=== PATIENT | male | born 1945 | race Caucasian/White ===

== ENCOUNTER 2017-08-16 22:21 | Inpatient (IN) | payer MEDICARE, MEDICAID ==
[2017-08-16 22:51] LABS: #Eosinphils 0.2 thou/uL (0.0-0.7); #Lymphocytes 2.3 thou/uL (1.20-3.40); #Monocytes 0.8 thou/uL (0.11-0.59); #Neutrophils 7.6 thou/uL (1.40-6.50); %Basophils 0.1 % (0.0-1.0); %Eosinophils 1.8 % (0.0-10.0); %Lymphocytes 21.2 % (21.0-51.0); %Monocytes 7.5 % (0.0-10.0); %Neutrophils 69.4 % (42.0-75.0); Hemoglobin 13.7 g/dL (14.0-18.0); Mean Corpuscular HGB CONC 33.3 g/dL (32.0-36.0); Mean Corpuscular Hemoglobin 32.6 pg (27.0-31.0); Mean Corpuscular Volume 97.9 fl (80.0-94.0); Mean Platelet Volume 7.9 fL (7.4-10.4); Platelet Count 263 thou/uL (130-400); RBC Distribution Width 12.7 % (11.5-14.5); Red Blood Cell (RBC) Count 4.22 mill/uL (4.70-6.10)
--- NOTE | 2017-08-16 22:56 | RAD ---
CHEST ONE VIEW: 08/16/17 HISTORY: Pain. Shortness of breath. COMPARISON: 09/05/12. FINDINGS: Portable upright chest: There is sternotomy wires. Atherosclerosis or the aorta. Increased interstitial opacities throughout the lung parenchyma may represent fibrotic change. Superimposed infiltrate cannot be excluded. Lungs are hyperinflated. No pneumothorax or osseous abnormalities. IMPRESSION: 1. Hyperinflation. 2. Fibrosis. 3. Superimposed infiltrate is suspected. Continued surveillance is recommended. POS: BEBETO
[2017-08-16 23:10] LABS: ALT (SGPT) 18 U/L (8-55); AST (SGOT) 27 U/L (5-34); Albumin 3.6 g/dL (3.4-4.8); Alkaline Phosphatase 76 U/L (40-150); Anion Gap 13 mmol/L (10-20); BUN (Urea Nitrogen) 25 mg/dL (8.4-25.7); Bilirubin, Total 0.5 mg/dL (0.2-1.2); Calc. Creatinine Clearance 0 mL/min (70-130); Calcium 8.8 mg/dL (7.8-10.44); Carbon Dioxide 21 mmol/L (23-31); Chloride 108 mmol/L (98-107); Estimated GFR-MDRD 60; Globulin 3.6 g/dL (2.4-3.5); Glucose 105 mg/dL (80-115); Potassium 4.2 mmol/L (3.5-5.1); Protein, Total 7.2 g/dL (5.8-8.1); Sodium 138 mmol/L (136-145)
[2017-08-16 23:15] LABS: CKMB 2.4 ng/mL (0-6.6); Troponin I 0.028 ng/mL (< 0.028)
[2017-08-16] MEDS ORDERED: methylPREDNISolone Sod Succ/PF 125 MG/2 ML VIAL ONE (23:30)
[2017-08-16] MEDS ORDERED: Azithromycin 500 MG in Sodium Chloride 0.9% 250 ML 250 ML IVPB SCH (23:45)
[2017-08-16] MEDS ORDERED: cefTRIAXone\\ROCEPHIN 2 GM in Sodium Chloride 0.9% 100 ML IVPB SCH (23:45)
[2017-08-17] MEDS ORDERED: Albuterol Sulfate 2.5 mg/3 ml Neb NEB PRN (01:45)
[2017-08-17] MEDS ORDERED: Acetaminophen 325 MG TAB PO PRN ×2 (01:48→08:21)
[2017-08-17] MEDS ORDERED: Ondansetron HCl/PF 4 MG/2 ML Vial IVP PRN ×3 (01:48→08:21)
[2017-08-17] MEDS ORDERED: Ondansetron ODT 4 MG TAB SL PRN (01:48)
[2017-08-17] MEDS ORDERED: Ipratropium Bromide 2.5 ml Neb NEB PRN (01:48)
[2017-08-17 02:03] VITALS: BMI 20.7
[2017-08-17 05:44] LABS: Troponin I 0.028 ng/mL (< 0.028)
[2017-08-17] MEDS ORDERED: Calcium Carbonate 500 MG ChewTAB PO PRN (08:21)
[2017-08-17] MEDS ORDERED: hydrALAZINE 20 MG/ML VIAL SLOW IVP PRN (08:21)
[2017-08-17] MEDS ORDERED: Loratadine 10 MG TAB PO PRN (08:21)
[2017-08-17] MEDS ORDERED: Mag-Al 1200 mg/1200 mg/30 ML UDCUP PO PRN (08:21)
[2017-08-17] MEDS ORDERED: Nitroglycerin 0.4 MG TAB (25 Tab Bottle) SL PRN (08:21)
[2017-08-17] MEDS ORDERED: Senokot 8.6 MG TAB PO PRN (08:21)
[2017-08-17] MEDS ORDERED: Diabetic Tussin 200 MG/10 ML UDCUP PO PRN (08:21)
[2017-08-17] MEDS ORDERED: Benzonatate 100 MG CAP PO PRN (08:21)
[2017-08-17] MEDS ORDERED: Bisacodyl 5 MG TAB PO PRN (08:21)
[2017-08-17] MEDS ORDERED: traMADol HCl 50 MG TAB PO PRN (08:21)
[2017-08-17] MEDS ORDERED: cloNIDine 0.1 MG TAB PO PRN (08:21)
[2017-08-17] MEDS: Aspirin 325 mg Enteric Coated Tablet PO SCH (09:31)
[2017-08-17] MEDS: Lisinopril 5 MG TAB PO SCH ×2 (09:31→20:33)
[2017-08-17] MEDS: Famotidine 20 MG TAB PO SCH ×2 (09:31→20:33)
[2017-08-17] MEDS: Enoxaparin Sodium 40 MG/0.4 ML SYRINGE SC SCH (09:31)
--- NOTE | 2017-08-17 12:04 | HP ---
PRIMARY CARE PHYSICIAN: None, he is a city call. CHIEF COMPLAINT: Worsening shortness of breath. HISTORY OF PRESENTING ILLNESS: Mr. Muse is a 72-year-old male with past medical history of coronary artery disease status post CABG x3 vessels 4 years ago in [facility] as well as history of longsta nding tobacco and alcohol abuse who presented to the emergency room with complaints of shortness of b reath. History is mainly obtained by the patient himself and electronic medical records have been re viewed. According to Mr. Muse, he has been feeling poorly for about a month. He started to feel weak and ti red and now for the last 2 days, he is getting progressively more and more short of breath. He is al so complaining of some cough with production of whitish greenish sputum. It is associated with chest tightness, wheezing, and general feeling of malaise. He denies any fever or chills. He denies any sick contacts. He continues to smoke, but he reports that he has cut down and 1 pack lasts him almos t a week. He also reports that he has cut down on his alcohol intake from 6 pack of beer per day to 1-2 every day for the last month or so. He had his CABG done 4 years ago, but was incarcerated after that. He did take the medications while incarcerated, but once he was out of the residential, he stopped taking everything and threw everything in trash. Upon presentation to the emergency room, he was quite hypoxic with his oxygen saturation 87% on room air and hypertensive with blood pressure of 181/115. He was found to be actively wheezing. His 12-l ead EKG showed some ST and T-wave changes which were considered nonspecific. Chest x-ray showed hype rinflation fibrosis and possible infiltrate throughout the lungs bilaterally. Because of these findi ngs and his physical examination, presumptive diagnosis was chronic obstructive pulmonary disease exa cerbation. Pneumonia was also in the differential. He received nebulizers, Solu-Medrol, IV antibiot ics, namely Rocephin and azithromycin and is now being admitted for further evaluation and care. At the time of my examination, he is already up in the room and is feeling much better. PAST MEDICAL HISTORY: 1. Coronary artery disease. 2. Tobacco abuse. 3. Alcohol abuse. 4. Undiagnosed chronic obstructive pulmonary disease. PAST MEDICAL HISTORY: Coronary artery bypass graft x3 vessels 4 years ago. PSYCHIATRIC HISTORY: No anxiety, no depression. SOCIAL HISTORY: He smokes cigarettes on a daily basis and has smoked for multiple years, more than a pack per day. He drinks alcohol on a regular basis, up until 1 month ago of 6 pack beer per day. Kristie sanders also chews tobacco. [place] and is otherwise independent with his ADLs and IADL s. FAMILY HISTORY: He does not remember much of his family history, but thinks that his mother possibly has had heart disease. He is unable to recall any other family members and their illnesses. ALLERGIES: PENICILLIN. CURRENT MEDICATIONS: None reviewed with the patient. REVIEW OF SYSTEMS: The following complete review of systems was negative, unless otherwise mentioned in the HPI or below: Constitutional: Weight loss or gain, ability to conduct usual activities. Skin: Rash, itching. Eyes: Double vision, pain. ENT/Mouth: Nose bleeding, neck stiffness, pain, tenderness. Cardiovascular: Palpitations, dyspnea on exertion, orthopnea. Respiratory: Shortness of breath, wheezing, cough, hemoptysis, fever or night sweats. Gastrointestinal: Poor appetite, abdominal pain, heartburn, nausea, vomiting, constipation, or diarr hea. Genitourinary: Urgency, frequency, dysuria, nocturia. Musculoskeletal: Pain, swelling. Neurologic/Psychiatric: Anxiety, depression. Allergy/Immunologic: Skin rash, bleeding tendency. It is negative except for those mentioned in the history and physical. LABORATORY DATA AND IMAGING DATA: CBC shows WBCs at 11 without any left shift, hemoglobin 13.7, and platelet count of 263. Serum chemistries; chloride 108, bicarbonate 21. Initial troponin and CK-MB normal. Repeat troponin 0.040, which trended back down to normal at 0.028. His BNP was checked by m yself a little while ago and came back elevated more than 3000. Chest x-ray done in the emergency ro om is reviewed by myself and the interstitial opacities most likely represent edema than infiltrate. Twelve lead EKG per my review shows frequent PACs with left atrial enlargement, sinus rhythm at 86 b eats per minute and ST and T-wave flattening in anterolateral inferior leads. PHYSICAL EXAMINATION: VITAL SIGNS: Upon presentation, blood pressure 181/115, pulse of 99, respirations 16, saturating 87% on room air, afebrile. Most recent vital signs include blood pressure 137/74 and saturations 96% on 2 liters nasal cannula. GENERAL: He appears more than his stated age, but is in no acute distress and is awake, alert, orien madhu x3. HEENT: Mucous membranes are slightly dry. No oropharyngeal exudate or erythema. Head is normocepha lic and atraumatic. Pupils are equal and reactive to light and accommodation. Extraocular movement intact. NECK: Supple without any lymphadenopathy, JVD or bruit. CHEST: Clear to auscultation without any wheezing, rales or rhonchi. Rhythm is regular without any murmur, rubs, or gallops. Few ectopic beats are auscultated. ABDOMEN: Soft, nontender, nondistended, positive bowel sounds. No guarding, rebound or rigidity. EXTREMITIES: Free of any cyanosis, clubbing, or edema. NEUROLOGIC: Examination is nonfocal. SKIN: Free of any rashes or bruises. I feel warm and dry to touch. PSYCHIATRIC: Normal affect. IMPRESSION AND PLAN: 1. Acute hypoxic respiratory failure. This seems to be multifactorial. At this time, most likely h e is having acute chronic obstructive pulmonary disease exacerbation along with acute congestive hear t failure and fluid overload. Also at this time, cardiac causes cannot be ruled out as the patient h as significant history of coronary artery disease and has been noncompliant with his medications. To optimize his care, we will start him on intravenous steroids as well as IV antibiotics as pneumonia cannot be ruled out. Also, start him on Dulera as well as Spiriva and continue oxygen as necessary. Also, give him a dose of Lasix and start him on a daily diuresis with strict I's and O's. We will o btain a transthoracic echocardiogram to assess his cardiac function. The likelihood of ACS is very l ow at this time. He will be restarted on aspirin and we will add lisinopril. We will avoid beta blo cker at this time because of acute chronic obstructive pulmonary disease exacerbation, but he will ne ed to be on a beta nick prior to his discharge. We will also check a lipid panel and restart him on lipid lowering agent given his history of coronary artery disease. He has no clinical signs and s ymptoms to suggest deep venous thrombosis or pulmonary embolism. Further management will depend upon his clinical course and the results of his echocardiogram. We may need to involve Cardiology if he shows significant cardiomyopathy or any valvular abnormalities. 2. Hypertensive urgency. His blood pressure is under much better control. We will start him on a d aily dose of lisinopril and add beta nick once his acute chronic obstructive pulmonary disease exa cerbation episode is over. Add p.r.n. antihypertensives as well. 3. History of coronary artery disease, status post coronary artery bypass graft. He will need to be started back on aspirin, statin, beta nick, and EMERITA inhibitor at the very least. Once again, we will start everything except for the beta nick for now. The patient will need prescription for al l of his medications prior to discharge as well as set up with primary care physician. I have discus sed the medication compliance with him in detail and at this time he is receptive to the feedback. 4. Tobacco abuse. The patient is receptive to continue to cut back. We will start him on a nicotin e patch. 5. Alcohol abuse. The patient has started to cut back and has been counseled against alcohol abuse. We will start him on vitamin supplements including thiamine and folic acid. 6. Code status: FULL CODE. Discussed with the patient. 7. Deep venous thrombosis and gastrointestinal prophylaxis. DISPOSITION: Mr. Muse is currently being admitted to the hospital for acute hypoxic respiratory catherine lure which seems to be multifactorial including pneumonia, acute COPD exacerbation as well as acute C HF, unspecified because of the lack of any recent echocardiogram in the EMR. Estimated length of sta y is at least 2-3 midnights. Further management will depend upon his clinical course.
[2017-08-17] MEDS: Furosemide 40 MG/4 ML VIAL SLOW IVP SCH (13:00)
[2017-08-17] MEDS: Mometasone/Formoterol 120 PUFF INHALER INH SCH (19:10)
[2017-08-17] MEDS: Atorvastatin Calcium 20 MG TAB PO SCH (20:33)
[2017-08-18 05:09] LABS: #Lymphocytes 0.9 thou/uL (1.20-3.40); #Monocytes 0.5 thou/uL (0.11-0.59); #Neutrophils 12.5 thou/uL (1.40-6.50); %Basophils 0.2 % (0.0-1.0); %Eosinophils 0.1 % (0.0-10.0); %Lymphocytes 6.7 % (21.0-51.0); %Monocytes 3.4 % (0.0-10.0); %Neutrophils 89.6 % (42.0-75.0); Hemoglobin 12.1 g/dL (14.0-18.0); Mean Corpuscular HGB CONC 33.5 g/dL (32.0-36.0); Mean Corpuscular Hemoglobin 33.1 pg (27.0-31.0); Mean Corpuscular Volume 98.9 fl (80.0-94.0); Mean Platelet Volume 8.2 fL (7.4-10.4); Platelet Count 246 thou/uL (130-400); RBC Distribution Width 12.5 % (11.5-14.5); Red Blood Cell (RBC) Count 3.65 mill/uL (4.70-6.10)
[2017-08-18 05:37] LABS: Anion Gap 11 mmol/L (10-20); BUN (Urea Nitrogen) 23 mg/dL (8.4-25.7); Calc. Creatinine Clearance 54 mL/min (70-130); Calcium 8.5 mg/dL (7.8-10.44); Carbon Dioxide 23 mmol/L (23-31); Chloride 106 mmol/L (98-107); Estimated GFR-MDRD 75; Glucose 113 mg/dL (80-115); Potassium 3.7 mmol/L (3.5-5.1); Sodium 136 mmol/L (136-145)
[2017-08-18] MEDS: Furosemide 40 MG/4 ML VIAL SLOW IVP SCH ×2 (05:51→15:32)
[2017-08-18] MEDS ORDERED: Spiriva 18 MCG CAP (Box of 5 Caps) INH SCH (07:00)
[2017-08-18] MEDS: Mometasone/Formoterol 120 PUFF INHALER INH SCH ×2 (09:25→18:33)
[2017-08-18] MEDS: Enoxaparin Sodium 40 MG/0.4 ML SYRINGE SC SCH (09:27)
[2017-08-18] MEDS: Folic Acid 1 MG TAB PO SCH (09:28)
[2017-08-18] MEDS: Famotidine 20 MG TAB PO SCH ×2 (09:28→21:10)
[2017-08-18] MEDS: Lisinopril 5 MG TAB PO SCH ×2 (09:28→21:11)
[2017-08-18] MEDS: Aspirin 325 mg Enteric Coated Tablet PO SCH (09:28)
[2017-08-18] MEDS ORDERED: Spironolactone 25 MG TAB PO SCH (10:15)
--- NOTE | 2017-08-18 10:55 | PDOC.PN ---
- Subjective Encounter Start Date: 08/18/17 Encounter Start Time: 07:30 -: old records requested/rev Patient seen and examined. No new complaints. No overnight events - Objective MAR Reviewed: Yes Vital Signs & Weight: Vital Signs (12 hours) Temp Pulse Resp BP BP Pulse Ox 08/18/17 09:29 98 08/18/17 09:28 83 12 138/80 08/18/17 09:25 86 16 08/18/17 07:15 97.1 F L 83 16 138/80 96 08/18/17 04:00 98.4 F 81 20 123/61 94 L 08/17/17 23:37 96 Weight Weight 117 lb 12.8 oz I&O: 08/17/17 08/18/17 08/19/17 06:59 06:59 06:59 Intake Total 720 Balance 720 Result Diagrams: 08/18/17 03:46 08/18/17 03:46 Radiology Reviewed by me: Yes (echo) EKG Reviewed by me: Yes (nsr) Phys Exam - Physical Examination Constitutional: NAD HEENT: PERRLA, moist MMs, sclera anicteric Neck: no JVD, supple Respiratory: no wheezing, no rhonchi few basal rales Cardiovascular: RRR, no rub SM+ Gastrointestinal: soft, non-tender, no distention, positive bowel sounds Musculoskeletal: no edema, pulses present Neurological: non-focal, normal sensation, moves all 4 limbs Lymphatic: no nodes Psychiatric: normal affect, A&O x 3 Skin: no rash, normal turgor Dx/Plan (1) Acute respiratory failure with hypoxia Code(s): J96.01 - ACUTE RESPIRATORY FAILURE WITH HYPOXIA Status: Acute (2) Acute systolic ACC/AHA stage C congestive heart failure Code(s): I50.21 - ACUTE SYSTOLIC (CONGESTIVE) HEART FAILURE Status: Acute (3) Demand ischemia Code(s): I24.8 - OTHER FORMS OF ACUTE ISCHEMIC HEART DISEASE Status: Acute (4) Moderate mitral regurgitation Code(s): I34.0 - NONRHEUMATIC MITRAL (VALVE) INSUFFICIENCY Status: Acute (5) Moderate tricuspid regurgitation Code(s): I07.1 - RHEUMATIC TRICUSPID INSUFFICIENCY Status: Acute (6) Alcohol abuse Code(s): F10.10 - ALCOHOL ABUSE, UNCOMPLICATED Status: Chronic (7) CAD (coronary artery disease) Code(s): I25.10 - ATHSCL HEART DISEASE OF [place] CORONARY ARTERY W/O ANG PCTRS Status: Chronic (8) Tobacco abuse Code(s): Z72.0 - TOBACCO USE Status: Chronic - Plan cont current plan of care * counselled to avoid smoking and alcohol abuse * cardiology will be consulted for life vest and AICD evaluation * medication reviewed as below * symptomatic treatment * add aldactone * repeat labs tomorrow * continue levaquin * reduce solumedrol Review of Systems - Review of Systems Constitutional: negative: fever, chills, sweats, weakness, malaise, other Eyes: negative: Pain, Vision Change, Conjunctivae Inflammation, Eyelid Inflammation, Redness, Other ENT: negative: Ear Pain, Ear Discharge, Nose Pain, Nose Discharge, Nose Congestion, Mouth Pain, Mouth Swelling, Throat Pain, Throat Swelling, Other Respiratory: SOB with Excertion. negative: Cough, Dry, Shortness of Breath, Hemoptysis, Pleuritic Pain, Sputum, Wheezing Cardiovascular: orthopnea. negative: chest pain, palpitations, paroxysmal nocturnal dyspnea, edema, light headedness, other Gastrointestinal: negative: Nausea, Vomiting, Abdominal Pain, Diarrhea, Constipation, Melena, Hematochezia, Other Genitourinary: negative: Dysuria, Frequency, Incontinence, Hematuria, Retention , Other Musculoskeletal: negative: Neck Pain, Shoulder Pain, Arm Pain, Back Pain, Hand Pain, Leg Pain, Foot Pain, Other Skin: negative: Rash, Lesions, [place], Bruising, Other Neurological: negative: Weakness, Numbness, Incoordination, Change in Speech, Confusion, Seizures, Other - Medications/Allergies Allergies/Adverse Reactions: Allergies Allergy/AdvReac Type Severity Reaction Status Date / Time Penicillins Allergy Unverified 08/16/17 23:50 Medications: Current Medications Acetaminophen (Tylenol) 650 mg PO Q4H PRN PRN Reason: Headache/Fever or Pain Al Hydroxide/Mg Hydroxide (Maalox) 30 ml PO Q6H PRN PRN Reason: Heartburn or Indigestion Albuterol/Ipratropium (Duoneb) 3 ml NEB [id number] PRN PRN Reason: SOB &/or Wheezing Albuterol/Ipratropium (Duoneb) 3 ml NEB [id number] ECTOR Last Admin: 04/28/18 09:28 Dose: 3 ml Aspirin (Ecotrin) 325 mg PO DAILY [facility] Last Admin: 08/18/17 09:28 Dose: 325 mg Atorvastatin Calcium (Lipitor) 20 mg PO HS [facility] Last Admin: 08/17/17 20:33 Dose: 20 mg Benzonatate (Tessalon) 100 mg PO Q4H PRN PRN Reason: Cough Last Admin: 08/17/17 09:31 Dose: 100 mg Bisacodyl (Dulcolax) 10 mg PO DAILYPRN PRN PRN Reason: Constipation Calcium Carbonate (Tums) 1,000 mg PO Q4H PRN PRN Reason: Heartburn or Indigestion Clonidine (Catapres) 0.1 mg PO Q4H PRN PRN Reason: Systolic BP > 160 Enoxaparin Sodium (Lovenox) 40 mg SC 0900 [facility] Last Admin: 08/18/17 09:27 Dose: 40 mg Famotidine (Pepcid) 20 mg PO BID [facility] Last Admin: 08/18/17 09:28 Dose: 20 mg Folic Acid (Folvite) 1 mg PO DAILY [facility] Last Admin: 08/18/17 09:28 Dose: 1 mg Furosemide (Lasix) 40 mg SLOW IVP 0600,1400 [facility] Last Admin: 08/18/17 05:51 Dose: 40 mg Guaifenesin (Robitussin Sf) 200 mg PO Q4H PRN PRN Reason: Cough Hydralazine HCl (Apresoline) 10 mg SLOW IVP Q4H PRN PRN Reason: Systolic BP > 170 Levofloxacin 500 mg/ Device 100 mls @ 100 mls/hr IVPB Q24HR [facility] Last Admin: 08/18/17 09:28 Dose: 100 mls Lisinopril (Zestril) 5 mg PO BID [facility] Last Admin: 08/18/17 09:28 Dose: 5 mg Loratadine (Claritin) 10 mg PO DAILYPRN PRN PRN Reason: Sinus Symptoms Methylprednisolone Sodium Succinate (Solu-Medrol) 40 mg IVP Q6HR [facility] Last Admin: 08/18/17 05:51 Dose: 40 mg Mometasone Furoate/Formoterol Fumar (Dulera 200 Mcg/5 Mcg Inhaler) 2 puff INH BID-RT [facility] Last Admin: 08/18/17 09:25 Dose: 2 puff Nitroglycerin (Nitrostat) 0.4 mg SL Q5MIN PRN PRN Reason: Chest Pain Ondansetron HCl (Zofran) 4 mg IVP Q6H PRN PRN Reason: Nausea/Vomiting Ondansetron HCl (Zofran) 4 mg IVP Q6H PRN PRN Reason: Nausea/Vomiting Senna (Senokot) 2 tab PO HSPRN PRN PRN Reason: Constipation Spironolactone (Aldactone) 25 mg PO NOW [facility] Stop: 08/18/17 12:15 Spironolactone (Aldactone) 25 mg PO [facility] Thiamine HCl (Thiamine) 100 mg PO DAILY [facility] Last Admin: 08/18/17 09:40 Dose: 100 mg Tramadol HCl (Ultram) 50 mg PO Q4H PRN PRN Reason: Moderate Pain (4-6)
[2017-08-18 13:35] LABS: Bilirubin Negative (Negative); Blood, Urine Negative (Negative); Clarity CLEAR (Clear); Glucose, Urine (Dipstick) Negative (Negative); Leukocyte Negative (Negative); Nitrite Negative (Negative); Protein, Urine (Dipstick) Negative (Neg-Trace); Specific Gravity, Urine 1.015 (1.002-1.036); Urobilinogen 0.2 mg/dL (0.2-1.0); pH, Urine 5.5 (5.0-9.0)
[2017-08-18 13:37] LABS: Bacteria/HPF None Seen HPF (None Seen); Hyaline Casts/LPF 0-3 HYALINE CAST LPF (0-3 Hyaline); RBC/HPF 0-3 HPF (0-3); Squamous Epithelial None Seen HPF (0-3); WBC/HPF None Seen HPF (0-3)
[2017-08-18] MEDS ORDERED: Carvedilol 3.125 MG TAB PO SCH (17:30)
[2017-08-18] MEDS: Atorvastatin Calcium 20 MG TAB PO SCH (21:10)
--- NOTE | 2017-08-19 00:09 | CON ---
DATE OF CONSULTATION: 08/18/2017 HISTORY OF PRESENT ILLNESS: Mr. Muse is a 72-year-old, white male with previous history of CABG x3 in [place] approximately 4 years ago. He states that when he left the hospital, he threw all his medi cines away and has not taken any medicines, not even aspirin since that time. He has gone back to sm oking 1-2 packs per day as well as drinking a six-pack of beer per day. Over the last month, he has been having problems with increased cough and shortness of breath. Over the last 2-3 days, he has lassiter d problems and has cut down from his usual 1-2 packs a day to where one pack would last him for a wee k. He also has cut back on his drinking. His breathing got so bad that he came to the emergency [facility] on the evening of 08/16/2017. Blood pressure on presentation was 181/115. He was significantly wh eezing. He was brought in by EMS. EMS gave nitroglycerin, morphine, oxygen, DuoNeb, and aspirin. I nitially, he was hypoxic in the mid 80s. He denied any chest discomfort. In the emergency room, he was given DuoNeb, Solu-Medrol 125 mg IV, ceftriaxone 2 grams IV, another DuoNeb, and azithromycin 500 mg IV. Echocardiogram showed severe left ventricular dysfunction, and Cardiology consultation was r equested. PAST MEDICAL HISTORY: Coronary artery disease. He denies any history of hypertension, diabetes, or hypercholesterolemia. He was never told that he had a weak heart at the time of his bypass surgery. MEDICATIONS: None. ALLERGIES: PENICILLIN. OPERATIONS: CABG x3 in [place]. SOCIAL HISTORY: He smoked 1-2 packs per day, but has recently cut down. He drinks a six-pack of bee r per day, but also has recently cut back. FAMILY HISTORY: Pretty much unknown. REVIEW OF SYSTEMS: Twelve-point review of systems is otherwise unremarkable. PHYSICAL EXAMINATION: VITAL SIGNS: Blood pressure 135/74, pulse of 87. HEENT: PERRL. NECK: Supple. CHEST: Reveals crackles at the bases. CARDIAC: S1 and S2 are normal, without any S3, S4, or murmurs. Carotid upstrokes normal, without br uits. ABDOMEN: Normal bowel sounds, without tenderness, organomegaly. EXTREMITIES: Revealed no clubbing, cyanosis, or edema. NEUROLOGIC: Grossly intact. SKIN: Warm and dry. LABORATORY DATA: EKG revealed normal sinus rhythm with nonspecific ST and T-wave changes. Echocardi ogram revealed ejection fraction of 20%-25% with moderate mitral regurgitation, aortic valvular scler osis, mild aortic regurgitation, [id number] tricuspid regurgitation, and moderate pulmonic re gurgitation. BNP 3294.2. Sodium 136, potassium 3.7, chloride 106, carbon dioxide 23, BUN 23, creati nine 0.99. One troponin I 0.040, the others are normal. Hemoglobin 12.1, hematocrit 36.1, white cou nt 14,000, platelets 246,000. IMPRESSION: 1. Severe ischemic cardiomyopathy with ejection fraction of 20%-25%. 2. Chronic obstructive pulmonary disease exacerbation, although his heart failure probably is the mo re significant issue. 3. Status post coronary artery bypass graft x3. 4. Noncompliance. 5. Hypertension. 6. Smoker. 7. EtOH abuse. PLAN: Situation was discussed with the patient. Fasting lipid profile will be obtained. Also, I wi ll start low dose carvedilol to go with his IV Lasix and p.o. lisinopril that he currently is on. We discussed the rationale for LifeVest as well as possible defibrillator in 3 months if his left ventr icular function continues to be poor. However, he declines a LifeVest at this time and states he wou ld decline ICD placement in 3 months. He understands the possibility of sudden without followi ng this protocol. Patient will continue to be diuresed, and hopefully, we will be more compliant wit h his medications going forward.
[2017-08-19 04:51] LABS: #Lymphocytes 0.8 thou/uL (1.20-3.40); #Monocytes 0.6 thou/uL (0.11-0.59); %Eosinophils 0.3 % (0.0-10.0); %Lymphocytes 5.1 % (21.0-51.0); %Monocytes 3.6 % (0.0-10.0); Hemoglobin 12.1 g/dL (14.0-18.0); Mean Corpuscular Hemoglobin 32.3 pg (27.0-31.0); Mean Corpuscular Volume 97.9 fl (80.0-94.0); Platelet Count 246 thou/uL (130-400); RBC Distribution Width 12.4 % (11.5-14.5); Red Blood Cell (RBC) Count 3.75 mill/uL (4.70-6.10); White Blood Cell (WBC) Count 16.5 thou/uL (4.8-10.8)
[2017-08-19 05:03] LABS: Anion Gap 11 mmol/L (10-20); BUN (Urea Nitrogen) 24 mg/dL (8.4-25.7); Calc. Creatinine Clearance 49 mL/min (70-130); Calcium 8.6 mg/dL (7.8-10.44); Carbon Dioxide 27 mmol/L (23-31); Chloride 103 mmol/L (98-107); Cholesterol 175 mg/dl (< 200 Desired); Estimated GFR-MDRD 68; Glucose 111 mg/dL (80-115); HDL Cholesterol 44 mg/dL (>60 Neg Risk); LDL Cholesterol, Calculated 120 mg/dL; Magnesium 1.9 mg/dL (1.6-2.6); Potassium 4.1 mmol/L (3.5-5.1); Sodium 137 mmol/L (136-145); Triglycerides 54 mg/dL (Less than 150); Uric Acid 7.4 mg/dL (3.5-7.2)
[2017-08-19] MEDS: Furosemide 40 MG/4 ML VIAL SLOW IVP SCH ×2 (05:49→14:51)
--- NOTE | 2017-08-19 06:05 | PDOC.PN ---
- Subjective Encounter Start Date: 08/19/17 Encounter Start Time: 07:15 Patient seen and examined. No new complaints. No overnight events - Objective MAR Reviewed: Yes Vital Signs & Weight: Vital Signs (12 hours) Temp Pulse Resp BP Pulse Ox 08/19/17 04:00 97.5 F L 71 16 122/67 95 08/18/17 23:54 62 16 99 08/18/17 21:10 97.5 F L 62 16 127/75 95 08/18/17 18:32 76 16 98 Weight Weight 117 lb 4.8 oz I&O: 08/17/17 08/18/17 08/19/17 06:59 06:59 06:59 Intake Total 720 200 Balance 720 200 Result Diagrams: 08/19/17 03:49 08/19/17 03:49 EKG Reviewed by me: Yes (nsr) Phys Exam - Physical Examination Constitutional: NAD HEENT: PERRLA, moist MMs, sclera anicteric Neck: no JVD, supple Respiratory: no wheezing, no rales, no rhonchi Cardiovascular: RRR, no significant murmur, no rub Gastrointestinal: soft, non-tender, no distention, positive bowel sounds Musculoskeletal: no edema, pulses present Neurological: non-focal, normal sensation, moves all 4 limbs Psychiatric: normal affect, A&O x 3 Skin: no rash, normal turgor Dx/Plan (1) Acute respiratory failure with hypoxia Code(s): J96.01 - ACUTE RESPIRATORY FAILURE WITH HYPOXIA Status: Resolved (2) Acute systolic ACC/AHA stage C congestive heart failure Code(s): I50.21 - ACUTE SYSTOLIC (CONGESTIVE) HEART FAILURE Status: Acute (3) Demand ischemia Code(s): I24.8 - OTHER FORMS OF ACUTE ISCHEMIC HEART DISEASE Status: Acute (4) Moderate mitral regurgitation Code(s): I34.0 - NONRHEUMATIC MITRAL (VALVE) INSUFFICIENCY Status: Acute (5) Moderate tricuspid regurgitation Code(s): I07.1 - RHEUMATIC TRICUSPID INSUFFICIENCY Status: Acute (6) Alcohol abuse Code(s): F10.10 - ALCOHOL ABUSE, UNCOMPLICATED Status: Chronic (7) CAD (coronary artery disease) Code(s): I25.10 - ATHSCL HEART DISEASE OF [place] CORONARY ARTERY W/O ANG PCTRS Status: Chronic (8) Tobacco abuse Code(s): Z72.0 - TOBACCO USE Status: Chronic - Plan cont current plan of care, continue antibiotics * change levaquin po * change to prednisone * pt does not want life vest * medication reviewed as below * symptomatic treatment * expecting discharge tomorrow. Review of Systems - Review of Systems ENT: negative: Ear Pain, Ear Discharge, Nose Pain, Nose Discharge, Nose Congestion, Mouth Pain, Mouth Swelling, Throat Pain, Throat Swelling, Other Respiratory: negative: Cough, Dry, Shortness of Breath, Hemoptysis, SOB with Excertion, Pleuritic Pain, Sputum, Wheezing Cardiovascular: negative: chest pain, palpitations, orthopnea, paroxysmal nocturnal dyspnea, edema, light headedness, other Gastrointestinal: negative: Nausea, Vomiting, Abdominal Pain, Diarrhea, Constipation, Melena, Hematochezia, Other Genitourinary: negative: Dysuria, Frequency, Incontinence, Hematuria, Retention , Other Musculoskeletal: negative: Neck Pain, Shoulder Pain, Arm Pain, Back Pain, Hand Pain, Leg Pain, Foot Pain, Other Skin: negative: Rash, Lesions, [place], Bruising, Other - Medications/Allergies Allergies/Adverse Reactions: Allergies Allergy/AdvReac Type Severity Reaction Status Date / Time Penicillins Allergy Unverified 08/16/17 23:50 Medications: Current Medications Acetaminophen (Tylenol) 650 mg PO Q4H PRN PRN Reason: Headache/Fever or Pain Al Hydroxide/Mg Hydroxide (Maalox) 30 ml PO Q6H PRN PRN Reason: Heartburn or Indigestion Albuterol/Ipratropium (Duoneb) 3 ml NEB [id number] PRN PRN Reason: SOB &/or Wheezing Albuterol/Ipratropium (Duoneb) 3 ml NEB [id number] Last Admin: 08/18/17 23:54 Dose: 3 ml Aspirin (Ecotrin) 325 mg PO DAILY [facility] Last Admin: 08/18/17 09:28 Dose: 325 mg Atorvastatin Calcium (Lipitor) 20 mg PO HS [facility] Last Admin: 08/18/17 21:10 Dose: 20 mg Benzonatate (Tessalon) 100 mg PO Q4H PRN PRN Reason: Cough Last Admin: 08/17/17 09:31 Dose: 100 mg Bisacodyl (Dulcolax) 10 mg PO DAILYPRN PRN PRN Reason: Constipation Calcium Carbonate (Tums) 1,000 mg PO Q4H PRN PRN Reason: Heartburn or Indigestion Carvedilol (Coreg) 3.125 mg PO BID-[facility] Clonidine (Catapres) 0.1 mg PO Q4H PRN PRN Reason: Systolic BP > 160 Enoxaparin Sodium (Lovenox) 40 mg SC 0900 [facility] Last Admin: 08/18/17 09:27 Dose: 40 mg Famotidine (Pepcid) 20 mg PO BID [facility] Last Admin: 08/18/17 21:10 Dose: 20 mg Folic Acid (Folvite) 1 mg PO DAILY [facility] Last Admin: 08/18/17 09:28 Dose: 1 mg Furosemide (Lasix) 40 mg SLOW IVP 0600,1400 [facility] Last Admin: 08/19/17 05:49 Dose: 40 mg Guaifenesin (Robitussin Sf) 200 mg PO Q4H PRN PRN Reason: Cough Hydralazine HCl (Apresoline) 10 mg SLOW IVP Q4H PRN PRN Reason: Systolic BP > 170 Levofloxacin 500 mg/ Device 100 mls @ 100 mls/hr IVPB Q24HR [facility] Last Admin: 08/18/17 09:28 Dose: 100 mls Lisinopril (Zestril) 5 mg PO BID [facility] Last Admin: 08/18/17 21:11 Dose: 5 mg Loratadine (Claritin) 10 mg PO DAILYPRN PRN PRN Reason: Sinus Symptoms Methylprednisolone Sodium Succinate (Solu-Medrol) 20 mg IVP Q8HR [facility] Last Admin: 08/19/17 05:49 Dose: 20 mg Mometasone Furoate/Formoterol Fumar (Dulera 200 Mcg/5 Mcg Inhaler) 2 puff INH BID-[facility] Last Admin: 08/18/17 18:33 Dose: 2 puff Nitroglycerin (Nitrostat) 0.4 mg SL Q5MIN PRN PRN Reason: Chest Pain Ondansetron HCl (Zofran) 4 mg IVP Q6H PRN PRN Reason: Nausea/Vomiting Ondansetron HCl (Zofran) 4 mg IVP Q6H PRN PRN Reason: Nausea/Vomiting Senna (Senokot) 2 tab PO HSPRN PRN PRN Reason: Constipation Spironolactone (Aldactone) 25 mg PO QAM-[facility] Thiamine HCl (Thiamine) 100 mg PO DAILY [facility] Last Admin: 08/18/17 09:40 Dose: 100 mg Tramadol HCl (Ultram) 50 mg PO Q4H PRN PRN Reason: Moderate Pain (4-6)
[2017-08-19] MEDS: Carvedilol 3.125 MG TAB PO SCH ×2 (08:00→16:35)
[2017-08-19] MEDS: Spironolactone 25 MG TAB PO SCH (08:00)
[2017-08-19] MEDS: Mometasone/Formoterol 120 PUFF INHALER INH SCH ×2 (08:35→19:28)
[2017-08-19] MEDS: Enoxaparin Sodium 40 MG/0.4 ML SYRINGE SC SCH (09:18)
[2017-08-19] MEDS: Lisinopril 5 MG TAB PO SCH ×2 (09:27→21:19)
[2017-08-19] MEDS: Aspirin 325 mg Enteric Coated Tablet PO SCH (09:27)
[2017-08-19] MEDS: Famotidine 20 MG TAB PO SCH ×2 (09:27→21:19)
[2017-08-19] MEDS: Folic Acid 1 MG TAB PO SCH (09:28)
[2017-08-19] MEDS ORDERED: Atorvastatin Calcium 40 MG TAB PO SCH (21:00)
[2017-08-20 04:55] VITALS: BP 119/76
[2017-08-20] MEDS: Mometasone/Formoterol 120 PUFF INHALER INH SCH (07:10)
[2017-08-20] MEDS ORDERED: Furosemide 40 MG TAB PO SCH (07:30)
[2017-08-20 07:32] VITALS: TEMP 97
[2017-08-20] MEDS ORDERED: predniSONE 20 MG TAB PO SCH (08:00)
[2017-08-20] MEDS: Folic Acid 1 MG TAB PO SCH (08:40)
[2017-08-20] MEDS: Lisinopril 5 MG TAB PO SCH (08:40)
[2017-08-20] MEDS: Aspirin 325 mg Enteric Coated Tablet PO SCH (08:40)
[2017-08-20] MEDS: Famotidine 20 MG TAB PO SCH (08:40)
[2017-08-20] MEDS: Spironolactone 25 MG TAB PO SCH (08:40)
[2017-08-20] MEDS: Enoxaparin Sodium 40 MG/0.4 ML SYRINGE SC SCH (08:41)
[2017-08-20] MEDS: Carvedilol 3.125 MG TAB PO SCH (08:44)
--- NOTE | 2017-08-20 09:33 | PDOC.PN ---
- Subjective Encounter Start Date: 08/20/17 Encounter Start Time: 07:10 Patient seen and examined. No new complaints. No overnight events - Objective MAR Reviewed: Yes Vital Signs & Weight: Vital Signs (12 hours) Temp Pulse Resp BP BP Pulse Ox 08/20/17 08:40 66 119/76 08/20/17 07:26 97.0 F L 66 18 08/20/17 07:13 100 08/20/17 07:10 63 16 100 08/20/17 04:00 97.9 F 62 18 119/76 99 08/20/17 01:20 95 Weight Weight 117 lb 4.8 oz I&O: 08/19/17 08/20/17 08/21/17 06:59 06:59 06:59 Intake Total 200 840 Balance 200 840 Result Diagrams: 08/19/17 03:49 08/19/17 03:49 Phys Exam - Physical Examination Constitutional: NAD HEENT: PERRLA, moist MMs, sclera anicteric Neck: no JVD, supple Respiratory: no wheezing, no rales, no rhonchi Cardiovascular: RRR, no significant murmur, no rub Gastrointestinal: soft, non-tender, no distention, positive bowel sounds Musculoskeletal: no edema, pulses present Neurological: non-focal, normal sensation, moves all 4 limbs Psychiatric: normal affect, A&O x 3 Skin: no rash, normal turgor Dx/Plan (1) Acute respiratory failure with hypoxia Code(s): J96.01 - ACUTE RESPIRATORY FAILURE WITH HYPOXIA Status: Resolved (2) Acute systolic ACC/AHA stage C congestive heart failure Code(s): I50.21 - ACUTE SYSTOLIC (CONGESTIVE) HEART FAILURE Status: Acute (3) Demand ischemia Code(s): I24.8 - OTHER FORMS OF ACUTE ISCHEMIC HEART DISEASE Status: Acute (4) Moderate mitral regurgitation Code(s): I34.0 - NONRHEUMATIC MITRAL (VALVE) INSUFFICIENCY Status: Acute (5) Moderate tricuspid regurgitation Code(s): I07.1 - RHEUMATIC TRICUSPID INSUFFICIENCY Status: Acute (6) Alcohol abuse Code(s): F10.10 - ALCOHOL ABUSE, UNCOMPLICATED Status: Chronic (7) CAD (coronary artery disease) Code(s): I25.10 - ATHSCL HEART DISEASE OF [place] CORONARY ARTERY W/O ANG PCTRS Status: Chronic (8) Tobacco abuse Code(s): Z72.0 - TOBACCO USE Status: Chronic - Plan cont current plan of care * medication reviewed as below * symptomatic treatment * see discharge johan. Review of Systems - Review of Systems Eyes: negative: Pain, Vision Change, Conjunctivae Inflammation, Eyelid Inflammation, Redness, Other ENT: negative: Ear Pain, Ear Discharge, Nose Pain, Nose Discharge, Nose Congestion, Mouth Pain, Mouth Swelling, Throat Pain, Throat Swelling, Other Respiratory: negative: Cough, Dry, Shortness of Breath, Hemoptysis, SOB with Excertion, Pleuritic Pain, Sputum, Wheezing Cardiovascular: negative: chest pain, palpitations, orthopnea, paroxysmal nocturnal dyspnea, edema, light headedness, other Gastrointestinal: negative: Nausea, Vomiting, Abdominal Pain, Diarrhea, Constipation, Melena, Hematochezia, Other Genitourinary: negative: Dysuria, Frequency, Incontinence, Hematuria, Retention , Other Musculoskeletal: negative: Neck Pain, Shoulder Pain, Arm Pain, Back Pain, Hand Pain, Leg Pain, Foot Pain, Other Skin: negative: Rash, Lesions, [place]coe, Bruising, Other - Medications/Allergies Allergies/Adverse Reactions: Allergies Allergy/AdvReac Type Severity Reaction Status Date / Time Penicillins Allergy Unverified 08/16/17 23:50 Medications: Current Medications Acetaminophen (Tylenol) 650 mg PO Q4H PRN PRN Reason: Headache/Fever or Pain Al Hydroxide/Mg Hydroxide (Maalox) 30 ml PO Q6H PRN PRN Reason: Heartburn or Indigestion Albuterol/Ipratropium (Duoneb) 3 ml NEB [id number] PRN PRN Reason: SOB &/or Wheezing Albuterol/Ipratropium (Duoneb) 3 ml NEB [id number] Last Admin: 08/20/17 07:10 Dose: 3 ml Aspirin (Ecotrin) 325 mg PO DAILY [facility] Last Admin: 08/20/17 08:40 Dose: 325 mg Atorvastatin Calcium (Lipitor) 40 mg PO HS [facility] Last Admin: 08/19/17 21:19 Dose: 40 mg Benzonatate (Tessalon) 100 mg PO Q4H PRN PRN Reason: Cough Last Admin: 08/17/17 09:31 Dose: 100 mg Bisacodyl (Dulcolax) 10 mg PO DAILYPRN PRN PRN Reason: Constipation Calcium Carbonate (Tums) 1,000 mg PO Q4H PRN PRN Reason: Heartburn or Indigestion Carvedilol (Coreg) 3.125 mg PO BID-[facility] Last Admin: 08/20/17 08:44 Dose: 3.125 mg Clonidine (Catapres) 0.1 mg PO Q4H PRN PRN Reason: Systolic BP > 160 Enoxaparin Sodium (Lovenox) 40 mg SC 0900 [facility] Last Admin: 08/20/17 08:41 Dose: 40 mg Famotidine (Pepcid) 20 mg PO BID [facility] Last Admin: 08/20/17 08:40 Dose: 20 mg Folic Acid (Folvite) 1 mg PO DAILY [facility] Last Admin: 08/20/17 08:40 Dose: 1 mg Furosemide (Lasix) 40 mg PO DAILY-[facility] Last Admin: 08/20/17 08:40 Dose: 40 mg Guaifenesin (Robitussin Sf) 200 mg PO Q4H PRN PRN Reason: Cough Hydralazine HCl (Apresoline) 10 mg SLOW IVP Q4H PRN PRN Reason: Systolic BP > 170 Levofloxacin (Levaquin) 500 mg PO 0600 [facility] Last Admin: 08/20/17 06:02 Dose: 500 mg Lisinopril (Zestril) 5 mg PO BID [facility] Last Admin: 08/20/17 08:40 Dose: 5 mg Loratadine (Claritin) 10 mg PO DAILYPRN PRN PRN Reason: Sinus Symptoms Mometasone Furoate/Formoterol Fumar (Dulera 200 Mcg/5 Mcg Inhaler) 2 puff INH BID-[facility] Last Admin: 08/20/17 07:10 Dose: 2 puff Nitroglycerin (Nitrostat) 0.4 mg SL Q5MIN PRN PRN Reason: Chest Pain Ondansetron HCl (Zofran) 4 mg IVP Q6H PRN PRN Reason: Nausea/Vomiting Ondansetron HCl (Zofran) 4 mg IVP Q6H PRN PRN Reason: Nausea/Vomiting Prednisone (Prednisone) 20 mg PO QAM-[facility] Last Admin: 08/20/17 08:40 Dose: 20 mg Senna (Senokot) 2 tab PO HSPRN PRN PRN Reason: Constipation Spironolactone (Aldactone) 25 mg PO QAM-[facility] Last Admin: 08/20/17 08:40 Dose: 25 mg Thiamine HCl (Thiamine) 100 mg PO DAILY [facility] Last Admin: 08/20/17 08:40 Dose: 100 mg Tramadol HCl (Ultram) 50 mg PO Q4H PRN PRN Reason: Moderate Pain (4-6)
--- NOTE | 2017-08-20 13:46 | DIS ---
DATE OF ADMISSION: 08/16/2017 DATE OF DISCHARGE: 08/20/2017 PRIMARY CARE PHYSICIAN: [facility] call admission. DISCHARGE DISPOSITION: Home. PRIMARY DISCHARGE DIAGNOSES: Acute respiratory failure with hypoxia, resolved; chronic obstructive p ulmonary disease exacerbation; New onset acute systolic congestive heart failure, stage 3; demand isc hemia; moderate mitral regurgitation; moderate tricuspid regurgitation. SECONDARY DISCHARGE DIAGNOSES: Tobacco abuse disorder, coronary artery disease, alcohol abuse, chron ic obstructive pulmonary disease. PRIMARY PROCEDURE/OPERATION: None. RADIOLOGICAL INVESTIGATION: Chest x-ray on admission showed hyperinflation and fibrosis. Echocardio graphy showed EF 20%-25%, moderate mitral regurgitation and tricuspid regurgitation. SIGNIFICANT LABS: WBC 16.5, hemoglobin 12.1, platelet 246,000. Sodium 137, creatinine 1.07, LDL 120 . Troponin 0.040. BNP 3294. Urinalysis normal. Blood culture negative. DISCHARGE MEDICATIONS: Aspirin 325 mg p.o. daily, Lipitor 40 mg p.o. at bedtime, Coreg 3.125 mg p.o. b.i.d., Pepcid 20 mg p.o. b.i.d., folic acid 1 mg p.o. daily, Lasix 40 mg p.o. daily, Levaquin 500 m g p.o. daily for 5 days, lisinopril 5 mg p.o. b.i.d., Dulera 2 puffs inhalation b.i.d., prednisone 20 mg p.o. daily for 5 days, Aldactone 25 mg p.o. daily, thiamine 100 mg p.o. daily, Ventolin HFA 2 puf fs q.6 hourly p.r.n. CONTRAINDICATIONS: None. CODE STATUS: FULL CODE. INPATIENT CONSULTANTS: Dr. Ramon Pak was consulted while in hospital. TEST RESULTS PENDING ON DISCHARGE: None. ALLERGIES: PENICILLIN. DISCHARGE PLAN: Post hospital, the patient will follow up with primary care physician on 08/23/2017 at 9:30 a.m. The patient will follow up with [facility] and with Dr. Ramon Pak. HOSPITAL COURSE: A 72-year-old male with above-mentioned medical problem who was admitted by Dr. Darnell Ray. Please see her H&P for further details. This patient has underlying history of coronary artery disease with CABG, who came to emergency room with worsening shortness of breath. He has und erlying tobacco and alcohol abuse history. Initially, the patient was suspected for COPD exacerbatio n. The patient's BNP was also elevated. We did echocardiography and we will found that his EF is 20 %-25%. He was treated for congestive heart failure as well as COPD while in hospital. He was also h aving hypertensive urgency that was improved with starting hypertensive medication. During this admi ssion, we titrated medication as above. All new medication prescription sent to his pharmacy. While in hospital, we also provided counseling about diet, fluid restriction, tobacco abuse avoidance and alcohol abuse avoidance and counseling was given. He will follow up with [facility] Failure [facility], [facility] physician and Cardiology. While in hospital, we consulted Dr. Pak for AICD/LifeVest ronak luation, but this patient did not want to wear LifeVest or did not want AICD in place and that is why not arranged. The patient is medically stable for discharge. The patient is seen and examined at bedside today. Jh henson see my progress note from today for further detail.
== END 2017-08-20 12:25 | disposition home or self-care (01) | DRG 291 ==
LOC: ERS 22:21 → 2NO 23:45
PROVIDERS: ADMIT Family Medicine; ATTEND Family Medicine
DX: I11.0 Hypertensive heart disease with heart failure (principal); J96.01 Acute respiratory failure with hypoxia; J44.1 Chronic obstructive pulmonary disease with (acute) exacerbation; I50.21 Acute systolic (congestive) heart failure; I25.5 Ischemic cardiomyopathy; I25.10 Atherosclerotic heart disease of native coronary artery without angina pectoris; F17.210 Nicotine dependence, cigarettes, uncomplicated; I16.0 Hypertensive urgency; F10.10 Alcohol abuse, uncomplicated; I08.1 Rheumatic disorders of both mitral and tricuspid valves; Z88.0 Allergy status to penicillin; Z95.1 Presence of aortocoronary bypass graft
CPT/HCPCS: 36415; 36416; 71045; 80048; 80053; 80061; 81001; 82553; 83735; 83880; 84484; 84550; 85025; 87040; 93005; 93306; 94640; 94664; 96365; 96367; 96375; 99406; J0456; J0696; J1650; J1940; J1956; J2920; J2930; J7050; J7506; J7620

== ENCOUNTER 2018-02-02 13:51 | Inpatient (IN) | payer MEDICARE, MEDICAID ==
[2018-02-02] MEDS ORDERED: Ondansetron PF 4 MG/2 ML Vial ONE (14:10)
[2018-02-02 14:30] LABS: #Lymphocytes 1.6 thou/uL (1.20-3.40); #Monocytes 0.5 thou/uL (0.11-0.59); #Neutrophils 7.1 thou/uL (1.40-6.50); %Basophils 0.5 % (0.0-1.0); %Eosinophils 0.4 % (0.0-10.0); %Lymphocytes 17.7 % (21.0-51.0); %Monocytes 5.5 % (0.0-10.0); %Neutrophils 77.1 % (42.0-75.0); Mean Corpuscular HGB CONC 30.8 g/dL (32.0-36.0); Mean Corpuscular Hemoglobin 30.6 pg (27.0-31.0); Mean Corpuscular Volume 99.4 fL (78.0-98.0); Mean Platelet Volume 8.2 fL (7.4-10.4); Platelet Count 302 thou/uL (130-400); Red Blood Cell (RBC) Count 5.21 mill/uL (4.70-6.10)
[2018-02-02 14:46] LABS: ALT (SGPT) 17 U/L (8-55); AST (SGOT) 58 U/L (5-34); Albumin 4.3 g/dL (3.4-4.8); Alkaline Phosphatase 69 U/L (40-150); Anion Gap 20 mmol/L (10-20); BUN (Urea Nitrogen) 17 mg/dL (8.4-25.7); Bilirubin, Total 1.5 mg/dL (0.2-1.2); Calc. Creatinine Clearance 0 mL/min (70-130); Calcium 9.6 mg/dL (7.8-10.44); Carbon Dioxide 19 mmol/L (23-31); Chloride 105 mmol/L (98-107); Estimated GFR-MDRD 67; Glucose 100 mg/dL (83-110); Potassium 4.8 mmol/L (3.5-5.1); Protein, Total 8.3 g/dL (5.8-8.1); Sodium 139 mmol/L (136-145)
--- NOTE | 2018-02-02 15:17 | RAD ---
FRONTAL VIEW CHEST: Date: 02/02/18 COMPARISON: 08/16/17. INDICATION: Chest pain. FINDINGS: There is enlargement of the cardiac silhouette with prominence of the pulmonary vasculature and of th e interstitium bilaterally. Prior sternotomy with vascular calcification. No significant interval jessica nge otherwise depicted. IMPRESSION: CHF. Improved interstitial opacities from prior exam. There remains mild edema. POS: [facility]
[2018-02-02] MEDS ORDERED: Heparin 25,000 units/D5W 500 ML ONE (15:20)
[2018-02-02] MEDS ORDERED: Nitroglycerin 0.4 MG TAB (25 Tab Bottle) ONE (15:23)
[2018-02-02] MEDS ORDERED: Heparin 1,000 UNITS/ML VIAL ONE ×2 (15:23→15:28)
[2018-02-02 15:31] LABS: INR-International Normal Ratio 0.9; Prothrombin Time 12.7 SEC (12.0-14.7)
[2018-02-02] MEDS ORDERED: Nitroglycerin 2% Ointment 1 INCH/1 GM Packet ONE (16:54)
[2018-02-02] MEDS ORDERED: Clopidogrel Bisulfate 75 MG TAB ONE (16:54)
[2018-02-02] MEDS ORDERED: Morphine 4 MG/ML VIAL SLOW IVP PRN (17:35)
[2018-02-02] MEDS ORDERED: Lorazepam 1 MG TAB PO PRN (17:38)
[2018-02-02] MEDS ORDERED: Nitroglycerin 0.4 MG TAB (25 Tab Bottle) PO PRN (17:41)
[2018-02-02] MEDS ORDERED: Ondansetron ODT 4 MG TAB PO PRN (17:41)
[2018-02-02] MEDS ORDERED: Calcium Carbonate 500 MG ChewTAB PO PRN (17:41)
[2018-02-02] MEDS ORDERED: Acetaminophen 325 MG TAB PO PRN (17:41)
[2018-02-02] MEDS ORDERED: Ondansetron PF 4 MG/2 ML Vial IVP PRN (17:41)
[2018-02-02] MEDS ORDERED: cloNIDine 0.1 MG TAB PO PRN (17:44)
[2018-02-02] MEDS ORDERED: Heparin 10,000 UNITS/ 10 ML VIAL SLOW IVP SCH (17:45)
[2018-02-02] MEDS ORDERED: Heparin 25,000 units/D5W 500 ML IVPB SCH (17:45)
--- NOTE | 2018-02-02 18:03 | HP ---
DATE OF ADMISSION: 02/02/2018 PRIMARY CARE PHYSICIAN: [facility]. The patient does not see a primary care physician. CHIEF COMPLAINT: Chest discomfort with worsening shortness of breath of 1 week. HISTORY OF PRESENT ILLNESS: The patient is a 73-year-old white male with coronary artery disease, chronic systolic heart failure, ejection fraction 20%- 25%, hypertension, and COPD, presented to the emergency room with above complaints. The patient was last hospitalized at this facility in July of this year for acute hypoxic respiratory failure secondary to COPD/CHF exacerbation. Echocardiogram at that time showed ejection fraction 20%-25%. The patient was evaluated by Cardiology. He was discharged home on carvedilol, EMERITA inhibitor, Lasix, and Aldactone. The patient ran out of all of his medications. He only takes aspirin at this time. Over the last one week, the patient developed gradual worsening shortness of breath mainly on mild exertion. He is unable to lie down flat. He also noticed some swelling in the legs. He reports chest pressure over the last 3 days, which is moderate in intensity without any aggravating or relieving factor. No associated nausea, vomiting, diaphoresis reported. He has lost his appetite. He also quit smoking recently. He currently has nebulizer and uses it 2-3 times a day. He denies recent immobilization or travel. In the emergency room, initial vital signs showed temperature 97.5, respirations 20, pulse rate of 92 with a blood pressure of 170/116 with O2 saturation of 95% on room air. His EKG showed sinus rhythm with ST depression in the anterolateral leads. The case was discussed with Cardiology on-call by the ER physician. He was started on heparin drip after a loading dose of Plavix. He currently has nitropatch. He also received aspirin, Zofran and nebulizer treatment and nitropatch was placed. While in the emergency room, his O2 sats intermittently dropped in the high 80s. PAST MEDICAL HISTORY: 1. Chronic systolic heart failure, ejection fraction 20% -25% range. 2. Chronic obstructive pulmonary disease. 3. Coronary artery disease, status post coronary artery bypass grafting. 4. Moderate mitral and tricuspid regurgitation. 5. Former smoker. The patient quit smoking 2 weeks ago. 6. History of alcohol abuse. PAST SURGICAL HISTORY: Coronary artery bypass grafting 4 years ago in [place]. ALLERGIES: PENICILLIN. SOCIAL HISTORY: He quit smoking recently as discussed above. He has a history of heavy alcohol abuse. He lives at home with his family. He is FULL CODE and makes his own decisions with the help of his family. He denies any drug use. FAMILY HISTORY: He denies any premature coronary artery disease. REVIEW OF SYSTEMS: The following complete review of systems was negative, unless otherwise mentioned in the HPI or below: Constitutional: Weight loss or gain, ability to conduct usual activities. Skin: Rash, itching. Eyes: Double vision, pain. ENT/Mouth: Nose bleeding, neck stiffness, pain, tenderness. Cardiovascular: Palpitations, dyspnea on exertion, orthopnea. Respiratory: Shortness of breath, wheezing, cough, hemoptysis, fever or night sweats. Gastrointestinal: Poor appetite, abdominal pain, heartburn, nausea, vomiting, constipation, or diarrhea. Genitourinary: Urgency, frequency, dysuria, nocturia. Musculoskeletal: Pain, swelling. Neurologic/Psychiatric: Anxiety, depression. Allergy/Immunologic: Skin rash, bleeding tendency. PHYSICAL EXAMINATION: VITAL SIGNS: As discussed above. GENERAL: A 73-year-old male in mild respiratory distress with intermittent chest pain. HEENT: Head atraumatic, normocephalic. Sclerae are anicteric. Moist mucous membrane. No oral lesion. NECK: Supple, no JVD, no carotid bruit. LUNGS: Showed bibasilar rales with scattered rhonchi and wheezing. CARDIOVASCULAR: Heart S1, S2 present. Regular rate and rhythm. No murmur, rubs, or gallops appreciated. Healed midline scar from previous CABG. ABDOMEN: Soft, nontender, bowel sounds present. EXTREMITIES: Trace edema in bilateral lower extremities. SKIN: Warm and dry. LYMPH NODES: No palpable lymph nodes in the neck. PERIPHERAL VASCULAR: Radial pulses palpable bilaterally. MUSCULOSKELETAL: No joint swelling or tenderness. LABORATORY FINDINGS: CBC showed WBC of 9 with hemoglobin 16, platelet 302. PT , INR, PTT normal range. Troponin was 6.5. BNP 3257, total bilirubin 1.58, AST of 58. Sodium 139, potassium 4.8, chloride 105, bicarb 19. EKG by my review as discussed above. Chest x-ray by my review showed congestive heart failure. IMPRESSION: 1. Non-ST elevation myocardial infarction. 2. Acute hypoxic respiratory failure secondary to failure exacerbation. 3. Acute on chronic systolic heart failure exacerbation. Stage C. 4. Former smoker. The patient quit smoking 2 weeks ago. 5. Coronary artery disease, status post CABG 4 years ago. 6. History of alcohol abuse. 7. Hypertension. 8. Moderate mitral and tricuspid regurgitation. PLAN: The patient will be monitored in the telemetry unit. We will continue heparin drip with Plavix per Cardiology recommendation. Gentle diuresis. Nitropatch. Low dose beta blockers and EMERITA inhibitor. The risks not limited to life threatening bleeding from anticoagulation discussed with the patient, he stated understanding. We will start him on alcohol withdrawal protocol, although patient states that he quit drinking. Continue aspirin. Vital signs q.4 hourly. Plan of care was discussed with the patient in detail. He stated understanding. PAWAND
[2018-02-02 18:56] LABS: Hemoglobin 13.8 g/dL (14.0-18.0); Platelet Count 264 thou/uL (130-400)
[2018-02-02 19:28] LABS: Troponin I 11.069 ng/mL (< 0.028)
[2018-02-02] MEDS ORDERED: Enoxaparin Sodium 60 MG/0.6 ML SYRINGE SC SCH (20:00)
[2018-02-02] MEDS: Famotidine 20 MG TAB PO SCH (21:27)
[2018-02-02] MEDS: Nitroglycerin 2% Ointment 1 INCH/1 GM Packet TOP SCH (21:28)
[2018-02-02] MEDS: Carvedilol 3.125 MG TAB PO SCH (21:28)
[2018-02-02] MEDS: Atorvastatin Calcium 40 MG TAB PO SCH (21:28)
[2018-02-03] MEDS: Furosemide 20 MG/2 ML VIAL SLOW IVP SCH ×2 (05:23→14:25)
[2018-02-03] MEDS: Nitroglycerin 2% Ointment 1 INCH/1 GM Packet TOP SCH ×3 (05:23→21:50)
[2018-02-03 05:36] LABS: #Basophils 0.1 thou/uL (0.0-0.2); #Eosinphils 0.2 thou/uL (0.0-0.7); #Lymphocytes 2.3 thou/uL (1.20-3.40); #Monocytes 1.2 thou/uL (0.11-0.59); #Neutrophils 6.4 thou/uL (1.40-6.50); %Basophils 0.9 % (0.0-1.0); %Eosinophils 1.9 % (0.0-10.0); %Lymphocytes 22.4 % (21.0-51.0); %Monocytes 11.8 % (0.0-10.0); %Neutrophils 62.9 % (42.0-75.0); Hemoglobin 12.6 g/dL (14.0-18.0); Mean Corpuscular HGB CONC 32.5 g/dL (32.0-36.0); Mean Corpuscular Hemoglobin 32.2 pg (27.0-31.0); Mean Corpuscular Volume 99.3 fL (78.0-98.0); Mean Platelet Volume 8.1 fL (7.4-10.4); Platelet Count 259 thou/uL (130-400); RBC Distribution Width 12.6 % (11.5-14.5); Red Blood Cell (RBC) Count 3.92 mill/uL (4.70-6.10); White Blood Cell (WBC) Count 10.2 thou/uL (4.8-10.8)
[2018-02-03 06:02] LABS: Troponin I 11.638 ng/mL (< 0.028)
[2018-02-03 06:11] LABS: ALT (SGPT) 14 U/L (8-55); AST (SGOT) 62 U/L (5-34); Albumin 3.3 g/dL (3.4-4.8); Alkaline Phosphatase 48 U/L (40-150); Anion Gap 11 mmol/L (10-20); BUN (Urea Nitrogen) 19 mg/dL (8.4-25.7); Calc. Creatinine Clearance 46 mL/min (70-130); Calcium 8.6 mg/dL (7.8-10.44); Carbon Dioxide 25 mmol/L (23-31); Chloride 106 mmol/L (98-107); Estimated GFR-MDRD 66; Globulin 2.8 g/dL (2.4-3.5); Glucose 92 mg/dL (83-110); Magnesium 1.8 mg/dL (1.6-2.6); Potassium 3.9 mmol/L (3.5-5.1); Protein, Total 6.1 g/dL (5.8-8.1); Sodium 138 mmol/L (136-145)
[2018-02-03] MEDS: Folic Acid 1 MG TAB PO SCH (09:49)
[2018-02-03] MEDS: Clopidogrel Bisulfate 75 MG TAB PO SCH (09:49)
[2018-02-03] MEDS: Famotidine 20 MG TAB PO SCH ×2 (09:49→20:29)
[2018-02-03] MEDS: Multivit, Therapeutic 1 TAB PO SCH (09:49)
[2018-02-03] MEDS: Lisinopril 2.5 MG TAB PO SCH (09:49)
[2018-02-03] MEDS: Aspirin 325 MG TAB PO SCH (09:49)
[2018-02-03] MEDS: Carvedilol 3.125 MG TAB PO SCH ×2 (09:49→20:29)
[2018-02-03] MEDS: Docusate 100 MG CAP PO SCH (09:50)
[2018-02-03] MEDS: Enoxaparin Sodium 60 MG/0.6 ML SYRINGE SC SCH ×2 (09:50→20:28)
--- NOTE | 2018-02-03 18:28 | CON ---
DATE OF CONSULTATION: 02/03/2018 REASON FOR CONSULTATION: Chest pain. HISTORY OF PRESENT ILLNESS: Mr. Muse is a very pleasant 73-year-old gentleman with history of coronary artery disease, status post bypass surgery. He was seen and evaluated by Dr. Ramon Pak in the past. He was seen in July for cardiomyopathy and chest pain. He was found to have an LVEF of 20%-25%. At that time, he refused LifeVest and ICD placement. He has had a history of noncompliance. He states he is not able to afford his medications, but unfortunately he continues to smoke one pack per day. He states he has had chest pain over the last 3 weeks. His most intense pain was on Sunday. He states he had some pain yesterday, but not nearly as intense. His initial troponin was elevated in the emergency room at 5. His CK-MB was negative. He is currently pain free. PAST MEDICAL HISTORY: COPD, tobacco abuse, chronic systolic heart failure, moderate MR, alcohol abuse. PAST SURGICAL HISTORY: CABG. ALLERGIES: PENICILLIN. MEDICATIONS: Aspirin. SOCIAL HISTORY: As above. REVIEW OF SYSTEMS: A 10-point review of systems was reviewed and as above, otherwise negative. PHYSICAL EXAMINATION: GENERAL: Patient is a pleasant male who is in no acute distress. The patient appears older than his stated age. VITAL SIGNS: Blood pressure 114/66, pulse 69, temperature 97.4. NEUROLOGIC: The patient is alert and oriented times 3 with no focal neurologic deficits. HEENT: Sclerae without icterus. Mouth has moist mucous membranes with normal pallor. NECK: No JVD. Carotid upstroke brisk. No bruits bilaterally. LUNGS: Clear to auscultation with unlabored respirations. BACK: No scoliosis or kyphosis. CARDIAC: Regular rate and rhythm with normal S1 and S2. No S3 or S4 noted. No significant rubs, murmurs, thrills, or gallops noted throughout the precordium. PMI is not displaced. There is no parasternal heave. ABDOMEN: Soft, nontender, nondistended. No peritoneal signs present. No hepatosplenomegaly. No abnormal striae. EXTREMITIES: 2+ femoral and 2+ dorsalis pedis pulses. No cyanosis, clubbing, or edema. SKIN: No gross abnormalities. PERTINENT LABS: Hemoglobin 12.6, hematocrit 39.0, platelet count of 259,000. Peak troponin of 11. IMPRESSION: 1. Non-acute myocardial infarction. 2. Coronary artery disease. 3. Status post bypass surgery. 4. Noncompliance. 5. Tobacco abuse. RECOMMENDATIONS: Certainly a difficult case. I am not convinced that Mr. Muse is willing to take his medications as an outpatient. He may benefit from coronary angiography and will need to take at least Plavix for 6 months. May consider medical therapy. I did discuss coronary angiography in full detail with Mr. Muse. Risks include, but are not limited to stroke NH need for emergency surgery, need for transfusion. Recommend a bare metal stent. Pt is agreeable. We will keep him n.p.o. after midnight. PAWAND
[2018-02-03] MEDS: Atorvastatin Calcium 40 MG TAB PO SCH (20:29)
--- NOTE | 2018-02-03 22:00 | PDOC.PN ---
- Subjective Encounter Start Date: 02/03/18 Encounter Start Time: 10:30 Patient seen and examined for NSTEMI. No CP/SOB/Palpitations/syncope/ diaphoresis. No other complaints. No overnight events - Objective Resuscitation Status: Resuscitation Status FULL:Full Resuscitation MAR Reviewed: Yes Vital Signs & Weight: Vital Signs (12 hours) Temp Pulse Pulse Pulse Resp BP BP 02/03/18 21:53 70 18 02/03/18 19:17 68 18 02/03/18 16:07 97.4 F L 69 16 02/03/18 16:00 114/66 02/03/18 15:26 69 67 122/77 02/03/18 14:31 67 16 02/03/18 12:00 126/72 02/03/18 11:00 97.7 F 64 14 02/03/18 10:58 69 16 BP BP Pulse Ox Pulse Ox Pulse Ox 02/03/18 21:53 95 02/03/18 19:17 96 02/03/18 16:07 114/66 97 02/03/18 16:00 02/03/18 15:26 127/78 99 98 02/03/18 14:31 96 02/03/18 12:00 02/03/18 11:00 126/72 97 02/03/18 10:58 97 Weight Weight 117 lb 6.4 oz I&O: 02/02/18 02/03/18 02/04/18 06:59 06:59 06:59 Intake Total 500 Output Total 1925 Balance -1425 Result Diagrams: 02/03/18 04:40 02/03/18 04:40 Radiology Reviewed by me: Yes (CXR - neg) EKG Reviewed by me: Yes (Tele SR) Phys Exam - Physical Examination Constitutional: NAD Respiratory: no wheezing, no rales, no rhonchi, clear to auscultation bilateral Cardiovascular: RRR, no rub No heaves/pulsations Gastrointestinal: soft, non-tender, no distention, positive bowel sounds Musculoskeletal: no edema, pulses present Neurological: non-focal, normal sensation, moves all 4 limbs Psychiatric: normal affect, A&O x 3 Dx/Plan - Plan DVT proph w/SCDs IMPRESSION: 1. Non-ST elevation myocardial infarction. 2. Acute hypoxic respiratory failure secondary to failure exacerbation. 3. Acute on chronic systolic heart failure exacerbation. Stage C. 4. Former smoker. The patient quit smoking 2 weeks ago. 5. Coronary artery disease, status post CABG 4 years ago. 6. History of alcohol abuse. 7. Hypertension. 8. Moderate mitral and tricuspid regurgitation. PLAN: Cont ASA/Plavix/Lovenox Cont low dose Coreg/ACEI Cont diuresis - change to daily Cont NTG patch Cont Nebs Review of Systems - Review of Systems Respiratory: negative: Cough, Dry, Shortness of Breath, Hemoptysis, SOB with Excertion, Pleuritic Pain, Sputum, Wheezing Cardiovascular: negative: chest pain, palpitations, orthopnea, paroxysmal nocturnal dyspnea, edema, light headedness, other - Medications/Allergies Allergies/Adverse Reactions: Allergies Allergy/AdvReac Type Severity Reaction Status Date / Time Penicillins Allergy Hives Verified 02/03/18 05:21 Medications: Current Medications Acetaminophen (Tylenol) 650 mg PO Q4H PRN PRN Reason: Headache/Fever/Mild Pain (1-3) Albuterol/Ipratropium (Duoneb) 3 ml NEB [id number] [facility] Last Admin: 02/03/18 21:53 Dose: 3 ml Albuterol/Ipratropium (Duoneb) 3 ml NEB [id number] PRN PRN Reason: SOB &/or Wheezing Aspirin (Aspirin) 325 mg PO DAILY [facility] Last Admin: 02/03/18 09:49 Dose: 325 mg Atorvastatin Calcium (Lipitor) 40 mg PO HS [facility] Last Admin: 02/03/18 20:29 Dose: 40 mg Calcium Carbonate (Tums) 1,000 mg PO Q4H PRN PRN Reason: Heartburn or Indigestion Carvedilol (Coreg) 3.125 mg PO BID [facility] Last Admin: 02/03/18 20:29 Dose: Not Given Clonidine (Catapres) 0.1 mg PO Q4H PRN PRN Reason: Systolic BP > 180 Clopidogrel Bisulfate (Plavix) 75 mg PO QAM [facility] Last Admin: 02/03/18 09:49 Dose: 75 mg Docusate Sodium (Colace) 100 mg PO DAILY [facility] Last Admin: 02/03/18 09:50 Dose: Not Given Enoxaparin Sodium (Lovenox) 50 mg SC 0900,2100 [facility] Last Admin: 02/03/18 20:28 Dose: 50 mg Famotidine (Pepcid) 20 mg PO BID [facility] Last Admin: 02/03/18 20:29 Dose: 20 mg Folic Acid (Folvite) 1 mg PO DAILY [facility] Last Admin: 02/03/18 09:49 Dose: 1 mg Furosemide (Lasix) 20 mg SLOW IVP 0600,1400 [facility] Last Admin: 02/03/18 14:25 Dose: 20 mg Lisinopril (Zestril) 2.5 mg PO DAILY [facility] Last Admin: 02/03/18 09:49 Dose: 2.5 mg Lorazepam (Ativan) 1 mg PO Q4H PRN PRN Reason: ASE >=9 Multivitamins (Theragran) 1 tab PO DAILY [facility] Last Admin: 02/03/18 09:49 Dose: 1 tab Nitroglycerin (Nitro-Bid 2% Ointment) 0.5 inch TOP Q8HR [facility] Last Admin: 02/03/18 21:50 Dose: 0.5 inch Nitroglycerin (Nitrostat) 0.4 mg PO Q5MIN PRN PRN Reason: Chest Pain Ondansetron HCl (Zofran Odt) 4 mg PO Q6H PRN PRN Reason: Nausea/Vomiting Ondansetron HCl (Zofran) 4 mg IVP Q6H PRN PRN Reason: Nausea/Vomiting Senna/Docusate Sodium (Senokot S) 2 tab PO BID PRN PRN Reason: Constipation Sodium Chloride (Flush - Normal Saline) 10 ml IVF PRN PRN PRN Reason: Saline Flush Last Admin: 02/03/18 14:29 Dose: 10 ml Thiamine HCl (Thiamine) 100 mg PO DAILY [facility] Last Admin: 02/03/18 09:50 Dose: 100 mg
[2018-02-04] MEDS: Nitroglycerin 2% Ointment 1 INCH/1 GM Packet TOP SCH ×3 (05:28→21:01)
[2018-02-04 05:29] LABS: Hemoglobin 13.3 g/dL (14.0-18.0); Platelet Count 252 thou/uL (130-400)
[2018-02-04 05:45] LABS: ALT (SGPT) 12 U/L (8-55); AST (SGOT) 39 U/L (5-34); Albumin 3.4 g/dL (3.4-4.8); Alkaline Phosphatase 54 U/L (40-150); Anion Gap 13 mmol/L (10-20); BUN (Urea Nitrogen) 20 mg/dL (8.4-25.7); Bilirubin, Total 0.8 mg/dL (0.2-1.2); Calc. Creatinine Clearance 43 mL/min (70-130); Calcium 8.8 mg/dL (7.8-10.44); Carbon Dioxide 25 mmol/L (23-31); Chloride 102 mmol/L (98-107); Estimated GFR-MDRD 61; Globulin 2.8 g/dL (2.4-3.5); Glucose 94 mg/dL (83-110); Magnesium 1.9 mg/dL (1.6-2.6); Potassium 3.6 mmol/L (3.5-5.1); Protein, Total 6.2 g/dL (5.8-8.1); Sodium 136 mmol/L (136-145)
[2018-02-04] MEDS ORDERED: Communication Order-Pharmacy FS SCH (07:00)
[2018-02-04] MEDS: Docusate 100 MG CAP PO SCH (08:43)
[2018-02-04] MEDS: Lisinopril 2.5 MG TAB PO SCH (08:43)
[2018-02-04] MEDS: Carvedilol 3.125 MG TAB PO SCH ×2 (08:43→21:00)
[2018-02-04] MEDS: Aspirin 325 MG TAB PO SCH (08:43)
[2018-02-04] MEDS: Folic Acid 1 MG TAB PO SCH (08:43)
[2018-02-04] MEDS: Multivit, Therapeutic 1 TAB PO SCH (08:43)
[2018-02-04] MEDS: Clopidogrel Bisulfate 75 MG TAB PO SCH (08:43)
[2018-02-04] MEDS: Famotidine 20 MG TAB PO SCH ×2 (08:43→21:00)
[2018-02-04] MEDS: Mometasone/Formoterol 120 PUFF INHALER INH SCH ×2 (09:08→20:01)
--- NOTE | 2018-02-04 09:49 | PDOC.PN ---
- Subjective Encounter Start Date: 02/04/18 Encounter Start Time: 09:45 Subjective: no chest pain - Objective Resuscitation Status: Resuscitation Status FULL:Full Resuscitation MAR Reviewed: Yes Vital Signs & Weight: Vital Signs (12 hours) Temp Pulse Resp BP BP Pulse Ox 02/04/18 09:08 83 16 02/04/18 09:01 91 L 02/04/18 09:00 83 16 02/04/18 08:04 97.8 F 69 14 125/83 99 02/04/18 04:00 98.1 F 76 12 125/76 125/76 97 02/04/18 02:37 73 18 98 02/03/18 21:53 70 18 95 Weight Weight 117 lb 2 oz I&O: 02/03/18 02/04/18 02/05/18 06:59 06:59 06:59 Intake Total 700 Output Total 2100 Balance -1400 Result Diagrams: 02/04/18 04:40 02/04/18 04:40 Phys Exam - Physical Examination Neck: no JVD Respiratory: clear to auscultation bilateral Cardiovascular: RRR, no significant murmur Gastrointestinal: soft, positive bowel sounds Musculoskeletal: no edema, edema present Dx/Plan (1) Moderate mitral regurgitation Code(s): I34.0 - NONRHEUMATIC MITRAL (VALVE) INSUFFICIENCY Status: Acute (2) CAD (coronary artery disease) Code(s): I25.10 - ATHSCL HEART DISEASE OF [place] CORONARY ARTERY W/O ANG PCTRS Status: Chronic Qualifiers: Coronary Disease-Associated Artery/Lesion type: [place] artery [place] vs. transplanted heart: [place] heart Associated angina: angina presence unspecified Qualified Code(s): I25.10 - Atherosclerotic heart disease of [place] coronary artery without angina pectoris (3) Tobacco abuse Code(s): Z72.0 - TOBACCO USE Status: Chronic (4) Cardiomyopathy Code(s): I42.9 - CARDIOMYOPATHY, UNSPECIFIED Status: Acute Qualifiers: Cardiomyopathy type: ischemic Qualified Code(s): I25.5 - Ischemic cardiomyopathy (5) COPD (chronic obstructive pulmonary disease) Status: Chronic Qualifiers: Emphysema type: panlobular (6) Demand ischemia Code(s): I24.8 - OTHER FORMS OF ACUTE ISCHEMIC HEART DISEASE Status: Acute - Plan cath planned today, will FU -: 1700hrs- cath positive for CAD. Dr Bettencourt will discuss options with jack * .
[2018-02-04] MEDS ORDERED: Lidocaine 1% (PF) 30 ML VIAL ONE ×2 (11:29→11:30)
[2018-02-04] MEDS ORDERED: Fentanyl 100 MCG/2 ML VIAL ONE (11:47)
[2018-02-04] MEDS ORDERED: Midazolam HCl 2 mg/2 ml Vial ONE (11:47)
[2018-02-04] MEDS ORDERED: Iopamidol 370 76% 100 ML VIAL ONE (12:15)
[2018-02-04] MEDS ORDERED: Acetaminophen/Codeine 30-300mg Tablet PO PRN ×2 (12:24)
[2018-02-04] MEDS ORDERED: Ondansetron PF 4 MG/2 ML Vial ONE (12:24)
[2018-02-04] MEDS ORDERED: traMADol HCl 50 MG TAB PO PRN (12:24)
[2018-02-04] MEDS ORDERED: Nitroglycerin 0.4 MG TAB (25 Tab Bottle) SL PRN (12:24)
[2018-02-04] MEDS ORDERED: Sodium Chloride 0.9% 200 ML IV SCH (12:30)
[2018-02-04] MEDS: Senokot S 8.6-50 MG TAB PO PRN (16:48)
[2018-02-04] MEDS: Furosemide 20 MG/2 ML VIAL SLOW IVP SCH (16:49)
[2018-02-04] MEDS: Atorvastatin Calcium 40 MG TAB PO SCH (21:00)
[2018-02-05] MEDS: Nitroglycerin 2% Ointment 1 INCH/1 GM Packet TOP SCH ×3 (05:27→20:50)
[2018-02-05] MEDS: Senokot S 8.6-50 MG TAB PO PRN (05:28)
[2018-02-05] MEDS: Mometasone/Formoterol 120 PUFF INHALER INH SCH ×2 (06:45→18:33)
--- NOTE | 2018-02-05 07:18 | PDOC.PN ---
- Subjective Encounter Start Date: 02/05/18 Encounter Start Time: 07:13 Subjective: no chest pain, etc - Objective Resuscitation Status: Resuscitation Status FULL:Full Resuscitation MAR Reviewed: Yes Vital Signs & Weight: Vital Signs (12 hours) Temp Pulse Resp BP BP Pulse Ox 02/05/18 06:45 82 16 02/05/18 06:38 94 L 02/05/18 06:37 82 16 02/05/18 04:00 98.8 F 86 16 156/91 H 93 L 02/04/18 20:01 92 18 95 02/04/18 20:00 160/88 H 02/04/18 19:25 99.0 F 89 16 160/88 H 94 L Weight Admit Weight 117 lb 14.4 oz Weight 117 lb 2 oz I&O: 02/04/18 02/05/18 02/06/18 06:59 06:59 06:59 Intake Total 700 800 Output Total 2100 575 Balance -1400 225 Result Diagrams: 02/04/18 04:40 02/04/18 04:40 Phys Exam - Physical Examination Neck: no JVD Respiratory: clear to auscultation bilateral Cardiovascular: RRR, no significant murmur Gastrointestinal: soft, positive bowel sounds Musculoskeletal: no edema Dx/Plan (1) Moderate mitral regurgitation Code(s): I34.0 - NONRHEUMATIC MITRAL (VALVE) INSUFFICIENCY Status: Acute (2) CAD (coronary artery disease) Code(s): I25.10 - ATHSCL HEART DISEASE OF [place] CORONARY ARTERY W/O ANG PCTRS Status: Chronic Qualifiers: Coronary Disease-Associated Artery/Lesion type: [place] artery [place] vs. transplanted heart: [place] heart Associated angina: angina presence unspecified Qualified Code(s): I25.10 - Atherosclerotic heart disease of [place] coronary artery without angina pectoris (3) Tobacco abuse Code(s): Z72.0 - TOBACCO USE Status: Chronic (4) Cardiomyopathy Code(s): I42.9 - CARDIOMYOPATHY, UNSPECIFIED Status: Acute Qualifiers: Cardiomyopathy type: ischemic Qualified Code(s): I25.5 - Ischemic cardiomyopathy (5) COPD (chronic obstructive pulmonary disease) Status: Chronic Qualifiers: Emphysema type: panlobular (6) Demand ischemia Code(s): I24.8 - OTHER FORMS OF ACUTE ISCHEMIC HEART DISEASE Status: Acute - Plan rpt CABG planned -: plavix,lovenox DCed -: cont ASA, statin, antihypertensives -: discuss with Card, TATYANA * .
--- NOTE | 2018-02-05 09:14 | ULT ---
BILATERAL CAROTID DOPPLER ULTRASOUND: HISTORY: Bilateral carotid bruit. COMPARISON: None. TECHNIQUE: Real-time, draper scale, color Doppler, and spectral analysis of bilateral extracranial carotid and [place] tebral arteries was performed. FINDINGS: There are no elevated peak systolic velocities in the internal carotid arteries. Antegrade flow of b oth vertebral arteries. IMPRESSION: No hemodynamically significant stenosis. POS: [facility]
[2018-02-05] MEDS: Lisinopril 2.5 MG TAB PO SCH (10:18)
[2018-02-05] MEDS: Docusate 100 MG CAP PO SCH (10:18)
[2018-02-05] MEDS: Famotidine 20 MG TAB PO SCH ×2 (10:18→20:50)
[2018-02-05] MEDS: Carvedilol 3.125 MG TAB PO SCH ×2 (10:18→20:51)
[2018-02-05] MEDS: Multivit, Therapeutic 1 TAB PO SCH (10:18)
[2018-02-05] MEDS: Aspirin 325 MG TAB PO SCH (10:18)
[2018-02-05] MEDS: Folic Acid 1 MG TAB PO SCH (10:19)
[2018-02-05] MEDS: Furosemide 20 MG/2 ML VIAL SLOW IVP SCH (10:19)
--- NOTE | 2018-02-05 13:06 | PQF ---
CLINICAL DOCUMENTATION IMPROVEMENT CLARIFICATION FORM: ICD-10 Updated PLEASE DO AN ADDENDUM TO THE PROGRESS NOTE WITH ANY DOCUMENTATION UPDATES OR ADDITIONS AND CARRY THROUGH TO DC SUMMARY. THANK YOU. DATE: 02/05/18 ATTN: Dr. Angelo Please exercise your independent, professional judgment in responding to the clarification form. Clinical indicators are provided on the bottom of this form for your review Please check appropriate box(s): [ x ] NSTEMI [ ] Demand ischemia [ ] Other diagnosis [ ] Unable to determine In addition, please specify: Present on Admission (POA): [ x] Yes [ ] No [ ] Unable to determine CLINICAL INDICATORS - SIGNS / SYMPTOMS / LABS CARDIOLOGY CONSULT 02/03: PEAK TROPONIN OF 11 NON-ACUTE MYOCARDIAL INFARCTION. CVS PN 02/04: PRESENTED WITH NSTEMI. PEAK TROP 11.6 AFTER 1 WEEK CP @ HOME PN 02/04-02/05: DEMAND ISCHEMIA. ACUTE. RISKS: H&P 02/02: NON-ST ELEVATION MYOCARDIAL INFARCTION; ACUTE HYPOXIC RESPIRATORY FAILURE 2/2 FAILURE EXACERBATION. ACUTE ON CHRONIC SYSTOLIC HEART FAILURE EXACERBATION. CAD. HTN. TREATMENT: ED RECORD: STARTING THE PT ON HEPARIN BOLUS AND GTT CPOE 02/02: ASPIRIN 325 MG PO DAILY CPOE 02/02: LOVENOX 50MG SC. DC'D 02/04 CPOE 02/02: PLAVIX 75MG PO Q AM. DC'D 02/04 Thank you, Maria Esther (This form is maintained as a part of the permanent medical record) 2014 [employer]. All Rights Reserved Maria Esther Bustamante RN, BSN [email or web address] Office: [phone] [facility]
--- NOTE | 2018-02-05 14:46 | CON ---
DATE OF CONSULTATION: 02/04/2018 HISTORY OF PRESENT ILLNESS: Mr. Muse is a 73-year-old gentleman who underwent coronary bypass graft ing x2 in [place] approximately 10 years ago. He had saphenous vein graft to his right coronary arter y. He also had an mammary artery to LAD. The patient has continued to smoke up until about a week a go. He has been seen in this hospital in July and was found to have ejection fraction of approximat adryan 20%. Recommendations were made for a LifeVest and/or defibrillator placement. He declined. He has stopped all of his home medications. He has presented with about a week to 2 weeks of chest pain at home. He underwent redo cardiac judy terization. This has shown that his right coronary graft has a severe atherosclerotic disease and st enosis within the graft. His mammary artery is a quite large artery. It is patent into the LAD. Th ere is some question of a stenosis of the LAD distal to his anastomosis. The circumflex artery is ne lauren occluded with heavily calcified plaque. Bypassable targets include an OM and a posterior descen ding. I would not reapproach his mammary to LAD anastomosis in his current situation. PAST MEDICAL HISTORY: 1. Coronary artery disease/status post coronary bypass grafting approximately 10 years ago as above. 2. Hypertension. 3. Hyperlipidemia. 4. Tobacco abuse. 5. Chronic heart failure with ejection fraction of 20%. 6. Alcohol abuse. 7. Chronic obstructive pulmonary disease. PAST SURGICAL HISTORY: As above. CURRENT MEDICATIONS: None. ALLERGIES: PENICILLIN. SOCIAL HISTORY: He continues to smoke and drink. REVIEW OF SYSTEMS: Ten point review of systems is performed and is negative except as above. PHYSICAL EXAMINATION: GENERAL: This is a diminutive gentleman, sleeping in bed without complaint. VITAL SIGNS: Height 5 feet 3 inches, weight pounds, BSA is 1.54. His temperature is 98.2, pul se is 78 and regular, blood pressure 127/76. HEENT: Sclerae nonicteric. Pupils equal, round bilaterally. NECK: Supple. He has soft bilateral carotid bruits. CHEST: Clear. Sternum is healed. VASCULAR: He has palpable wires over his sternal incision. ABDOMEN: Soft and nontender. EXTREMITIES: No edema. They harvested his left greater saphenous vein. ASSESSMENT AND PLAN: Recurrent coronary artery disease with stable angina. He was loaded with Plavi x at the time of his admission. He will need to be without Plavix for a week. I have stopped his Pl avix as of 02/04/2018 prior to surgery. I have discussed redo coronary bypass grafting utilizing saphenous vein graft to the PDA and OM. He is agreeable. I would not redo his LAD graft as the mammary is a big, widely patent graft.
[2018-02-05] MEDS: Atorvastatin Calcium 40 MG TAB PO SCH (20:50)
[2018-02-06] MEDS: Nitroglycerin 2% Ointment 1 INCH/1 GM Packet TOP SCH ×3 (06:12→21:52)
[2018-02-06] MEDS: Mometasone/Formoterol 120 PUFF INHALER INH SCH ×2 (07:11→18:49)
--- NOTE | 2018-02-06 07:26 | PDOC.CTH ---
Cardiology Progress Note - Subjective No complaints this am - Objective Vital Signs Temp Pulse Resp BP Pulse Ox 02/06/18 07:11 65 14 96 02/06/18 07:10 65 14 96 02/06/18 03:40 98.0 F 67 18 117/68 95 02/06/18 02:25 63 12 95 02/05/18 22:35 61 12 96 02/05/18 19:40 98.8 F 68 18 110/64 96 Admit Weight 117 lb 14.4 oz Weight 117 lb 2 oz 02/05/18 02/06/18 02/07/18 06:59 06:59 06:59 Intake Total 800 Output Total 575 100 Balance 225 -100 - Physical Examination General/Neuro: alert & oriented x3, NAD Neck: carotid US brisk, no JVD present Lungs: CTA, unlabored respirations Heart: PMI normal, RRR Abdomen: NT/ND, soft Extremities: + femoral B - Labs Result Diagrams: 02/04/18 04:40 02/04/18 04:40 Troponin/CKMB Troponin I 11.638 ng/mL (< 0.028) H* 02/03/18 04:40 - Assessment/Plan Severe CAD non-compliance tob abuse Given his non-compliance, I do not feel it is in his best interest rosa proceed with intervention tot he circ or RCA. Discussed with Dr. Rolle. Pt best with redo CABG to the RCA nd circ. With intervention to the circ, I am concerned about heavy calcium in the proximal circumflex distribution and achieving a suboptimal result with a bare metal stent
--- NOTE | 2018-02-06 07:32 | PDOC.PN ---
- Subjective Encounter Start Date: 02/06/18 Encounter Start Time: 07:31 Subjective: no chest pain, sob - Objective Resuscitation Status: Resuscitation Status FULL:Full Resuscitation MAR Reviewed: Yes Vital Signs & Weight: Vital Signs (12 hours) Temp Pulse Resp BP BP Pulse Ox 02/06/18 07:21 97.7 F 58 L 18 116/74 116/74 95 02/06/18 07:11 65 14 96 02/06/18 07:10 65 14 96 02/06/18 03:40 98.0 F 67 18 117/68 95 02/06/18 02:25 63 12 95 02/05/18 22:35 61 12 96 02/05/18 19:40 98.8 F 68 18 110/64 96 Weight Admit Weight 117 lb 14.4 oz Weight 117 lb 2 oz I&O: 02/05/18 02/06/18 02/07/18 06:59 06:59 06:59 Intake Total 800 Output Total 575 100 Balance 225 -100 Result Diagrams: 02/04/18 04:40 02/04/18 04:40 Phys Exam - Physical Examination Neck: no JVD Respiratory: clear to auscultation bilateral Cardiovascular: RRR, no significant murmur Gastrointestinal: soft, positive bowel sounds Musculoskeletal: no edema Dx/Plan (1) Moderate mitral regurgitation Code(s): I34.0 - NONRHEUMATIC MITRAL (VALVE) INSUFFICIENCY Status: Acute (2) CAD (coronary artery disease) Code(s): I25.10 - ATHSCL HEART DISEASE OF [place] CORONARY ARTERY W/O ANG PCTRS Status: Chronic Qualifiers: Coronary Disease-Associated Artery/Lesion type: [place] artery [place] vs. transplanted heart: [place] heart Associated angina: angina presence unspecified Qualified Code(s): I25.10 - Atherosclerotic heart disease of [place] coronary artery without angina pectoris (3) Tobacco abuse Code(s): Z72.0 - TOBACCO USE Status: Chronic (4) Cardiomyopathy Code(s): I42.9 - CARDIOMYOPATHY, UNSPECIFIED Status: Acute Qualifiers: Cardiomyopathy type: ischemic Qualified Code(s): I25.5 - Ischemic cardiomyopathy (5) COPD (chronic obstructive pulmonary disease) Status: Chronic Qualifiers: Emphysema type: panlobular (6) Demand ischemia Code(s): I24.8 - OTHER FORMS OF ACUTE ISCHEMIC HEART DISEASE Status: Acute - Plan planned CABG, avoid plavix -: cont ASA, statin, coreg * .
[2018-02-06] MEDS: Folic Acid 1 MG TAB PO SCH (09:25)
[2018-02-06] MEDS: Furosemide 20 MG/2 ML VIAL SLOW IVP SCH (09:25)
[2018-02-06] MEDS: Lisinopril 2.5 MG TAB PO SCH (09:25)
[2018-02-06] MEDS: Carvedilol 3.125 MG TAB PO SCH ×2 (09:25→20:21)
[2018-02-06] MEDS: Docusate 100 MG CAP PO SCH (09:25)
[2018-02-06] MEDS: Aspirin 325 MG TAB PO SCH (09:25)
[2018-02-06] MEDS: Famotidine 20 MG TAB PO SCH ×2 (09:25→20:20)
[2018-02-06] MEDS: Multivit, Therapeutic 1 TAB PO SCH (09:26)
[2018-02-06] MEDS: Atorvastatin Calcium 40 MG TAB PO SCH (20:20)
[2018-02-07] MEDS: Nitroglycerin 2% Ointment 1 INCH/1 GM Packet TOP SCH ×3 (06:25→20:32)
[2018-02-07] MEDS: Mometasone/Formoterol 120 PUFF INHALER INH SCH ×2 (07:13→18:12)
--- NOTE | 2018-02-07 07:38 | PDOC.PN ---
- Subjective Encounter Start Date: 02/07/18 Encounter Start Time: 07:36 Subjective: no chest pain, sob - Objective Resuscitation Status: Resuscitation Status FULL:Full Resuscitation MAR Reviewed: Yes Vital Signs & Weight: Vital Signs (12 hours) Temp Pulse Resp BP BP BP Pulse Ox 02/07/18 07:12 56 L 16 96 02/07/18 07:01 99.2 F 58 L 18 122/73 122/73 99 02/07/18 04:35 130/79 02/07/18 04:00 98.4 F 63 16 130/79 95 02/07/18 02:23 59 L 18 97 02/07/18 00:00 108/68 02/06/18 23:25 62 18 99 02/06/18 20:25 98 02/06/18 20:15 108/59 L 02/06/18 20:05 98.1 F 60 16 108/59 L 95 Weight Admit Weight 117 lb 14.4 oz Weight 114 lb 9.6 oz I&O: 02/06/18 02/07/18 02/08/18 06:59 06:59 06:59 Intake Total 960 1850 Output Total 450 900 Balance 510 950 Result Diagrams: 02/04/18 04:40 02/04/18 04:40 Phys Exam - Physical Examination Neck: no JVD Respiratory: clear to auscultation bilateral Cardiovascular: RRR, no significant murmur Gastrointestinal: soft, positive bowel sounds Musculoskeletal: no edema Dx/Plan (1) Moderate mitral regurgitation Code(s): I34.0 - NONRHEUMATIC MITRAL (VALVE) INSUFFICIENCY Status: Acute (2) CAD (coronary artery disease) Code(s): I25.10 - ATHSCL HEART DISEASE OF [place] CORONARY ARTERY W/O ANG PCTRS Status: Chronic Qualifiers: Coronary Disease-Associated Artery/Lesion type: [place] artery [place] vs. transplanted heart: [place] heart Associated angina: angina presence unspecified Qualified Code(s): I25.10 - Atherosclerotic heart disease of [place] coronary artery without angina pectoris (3) Tobacco abuse Code(s): Z72.0 - TOBACCO USE Status: Chronic (4) Cardiomyopathy Code(s): I42.9 - CARDIOMYOPATHY, UNSPECIFIED Status: Acute Qualifiers: Cardiomyopathy type: ischemic Qualified Code(s): I25.5 - Ischemic cardiomyopathy (5) COPD (chronic obstructive pulmonary disease) Status: Chronic Qualifiers: Emphysema type: panlobular (6) Demand ischemia Code(s): I24.8 - OTHER FORMS OF ACUTE ISCHEMIC HEART DISEASE Status: Acute - Plan CAbg sunday -: cont ASA, coreg, statin * .
[2018-02-07] MEDS: Famotidine 20 MG TAB PO SCH ×2 (08:57→20:32)
[2018-02-07] MEDS: Docusate 100 MG CAP PO SCH (08:57)
[2018-02-07] MEDS: Aspirin 325 MG TAB PO SCH (08:57)
[2018-02-07] MEDS: Carvedilol 3.125 MG TAB PO SCH ×2 (08:57→20:32)
[2018-02-07] MEDS: Folic Acid 1 MG TAB PO SCH (08:57)
[2018-02-07] MEDS: Multivit, Therapeutic 1 TAB PO SCH (08:58)
[2018-02-07] MEDS: Furosemide 20 MG/2 ML VIAL SLOW IVP SCH (08:58)
[2018-02-07] MEDS: Lisinopril 2.5 MG TAB PO SCH (08:58)
--- NOTE | 2018-02-07 13:37 | PDOC.EVN ---
Event Note - Event Note Event Note: risk of cardiac mobidity and mortality requires continued hospital stay for CABG until bleeding risk of plavix isdiminished
--- NOTE | 2018-02-07 15:55 | PDOC.CTH ---
Cardiology Progress Note - Subjective No complaints - Objective Vital Signs Temp Pulse Pulse Pulse Resp BP BP 02/07/18 13:52 62 16 02/07/18 12:32 97.8 F 60 18 126/72 02/07/18 11:18 48 L 51 L 119/64 02/07/18 08:58 66 02/07/18 07:12 56 L 16 02/07/18 07:01 99.2 F 58 L 18 122/73 02/07/18 04:35 130/79 02/07/18 04:00 98.4 F 63 16 BP BP BP Pulse Ox Pulse Ox Pulse Ox 02/07/18 13:52 96 02/07/18 12:32 126/72 99 02/07/18 11:18 110/69 99 100 02/07/18 08:58 02/07/18 07:12 96 02/07/18 07:01 122/73 96 02/07/18 04:35 02/07/18 04:00 130/79 95 Admit Weight 117 lb 14.4 oz Weight 114 lb 9.6 oz 02/06/18 02/07/18 02/08/18 06:59 06:59 06:59 Intake Total 960 1850 Output Total 450 900 Balance 510 950 - Physical Examination General/Neuro: alert & oriented x3, NAD Neck: carotid US brisk, no JVD present Lungs: CTA, unlabored respirations Heart: PMI normal, RRR Abdomen: no HSM, NT/ND, soft Extremities: + femoral B - Telemetry Telemetry Rhythm: SR - Labs Result Diagrams: 02/04/18 04:40 02/04/18 04:40 Troponin/CKMB Troponin I 11.638 ng/mL (< 0.028) H* 02/03/18 04:40 - Assessment/Plan Svere CAD s/p CBAG Tob use Pt awaiting CABG Plavix received on sunday (loading dose) Plan is CABG on Sunday per CV surgery
[2018-02-07] MEDS: Atorvastatin Calcium 40 MG TAB PO SCH (20:32)
[2018-02-08] MEDS: Mometasone/Formoterol 120 PUFF INHALER INH SCH ×2 (06:44→19:58)
--- NOTE | 2018-02-08 08:40 | PRG ---
DATE OF SERVICE: 02/08/2018 Mr. Muse is doing well. No current complaints. He is awaiting bypass surgery on Sunday. PHYSICAL EXAMINATION: VITAL SIGNS: Blood pressure 136/98, pulse 64, temperature 97.4. LUNGS: Clear to auscultation. CARDIAC: Regular rate and rhythm. ABDOMEN: Soft, nontender, nondistended. EXTREMITIES: No edema. IMPRESSION: 1. Severe coronary artery disease. 2. Status post bypass surgery. 3. Tobacco abuse. RECOMMENDATIONS: 1. The plan is to proceed with a bypass surgery on Sunday. 2. Stop smoking.
[2018-02-08] MEDS: Multivit, Therapeutic 1 TAB PO SCH (09:59)
[2018-02-08] MEDS: Famotidine 20 MG TAB PO SCH ×2 (09:59→21:30)
[2018-02-08] MEDS: Aspirin 325 MG TAB PO SCH (09:59)
[2018-02-08] MEDS: Folic Acid 1 MG TAB PO SCH (10:00)
[2018-02-08] MEDS: Docusate 100 MG CAP PO SCH (10:00)
[2018-02-08] MEDS: Lisinopril 2.5 MG TAB PO SCH (10:00)
[2018-02-08] MEDS: Carvedilol 3.125 MG TAB PO SCH ×2 (10:01→21:30)
[2018-02-08] MEDS: Furosemide 20 MG/2 ML VIAL SLOW IVP SCH (10:02)
[2018-02-08] MEDS: Nitroglycerin 2% Ointment 1 INCH/1 GM Packet TOP SCH ×3 (10:16→21:30)
--- NOTE | 2018-02-08 13:21 | PDOC.PN ---
- Subjective Encounter Start Date: 02/08/18 Encounter Start Time: 11:00 Subjective: pt up in bed no complains - Objective Resuscitation Status: Resuscitation Status FULL:Full Resuscitation Vital Signs & Weight: Vital Signs (12 hours) Temp Pulse Resp BP BP Pulse Ox 02/08/18 12:11 97.4 F L 54 L 16 123/70 99 02/08/18 11:35 72 56 H 02/08/18 07:50 97.4 F L 54 L 16 136/78 100 02/08/18 06:44 56 L 20 96 02/08/18 06:42 56 L 20 96 02/08/18 03:30 97.8 F 57 L 14 108/63 98 02/08/18 02:13 54 L 14 97 Weight Admit Weight 117 lb 14.4 oz Weight 115 lb 6.4 oz I&O: 02/07/18 02/08/18 02/09/18 06:59 06:59 06:59 Intake Total 1850 1640 Output Total 900 2085 Balance 950 -445 Result Diagrams: 02/04/18 04:40 02/04/18 04:40 Phys Exam - Physical Examination Neck: no nodes, no JVD, supple, full ROM Respiratory: no wheezing, no rales, no rhonchi, wheezing present, clear to auscultation bilateral Cardiovascular: RRR, no significant murmur, no rub, gallop, irregular Gastrointestinal: soft, non-tender, no distention, positive bowel sounds Dx/Plan (1) Acute systolic ACC/AHA stage C congestive heart failure Code(s): I50.21 - ACUTE SYSTOLIC (CONGESTIVE) HEART FAILURE Status: Acute (2) CAD (coronary artery disease) Code(s): I25.10 - ATHSCL HEART DISEASE OF [place] CORONARY ARTERY W/O ANG PCTRS Status: Chronic Qualifiers: Coronary Disease-Associated Artery/Lesion type: [place] artery [place] vs. transplanted heart: [place] heart Associated angina: angina presence unspecified Qualified Code(s): I25.10 - Atherosclerotic heart disease of [place] coronary artery without angina pectoris (3) Moderate tricuspid regurgitation Code(s): I07.1 - RHEUMATIC TRICUSPID INSUFFICIENCY Status: Acute - Plan pt to go for a bypass on sunday -: will continue home meds * . Review of Systems - Review of Systems Respiratory: negative: Cough, Dry, Shortness of Breath, Hemoptysis, SOB with Excertion, Pleuritic Pain, Sputum, Wheezing Cardiovascular: negative: chest pain, palpitations, orthopnea, paroxysmal nocturnal dyspnea, edema, light headedness, other Gastrointestinal: negative: Nausea, Vomiting, Abdominal Pain, Diarrhea, Constipation, Melena, Hematochezia, Other Genitourinary: negative: Dysuria, Frequency, Incontinence, Hematuria, Retention , Other - Medications/Allergies Allergies/Adverse Reactions: Allergies Allergy/AdvReac Type Severity Reaction Status Date / Time Penicillins Allergy Hives Verified 02/03/18 05:21 Medications: Current Medications Acetaminophen (Tylenol) 650 mg PO Q4H PRN PRN Reason: Headache/Fever/Mild Pain (1-3) Acetaminophen/Codeine Phosphate (Tylenol #3) 1 tab PO Q4H PRN PRN Reason: Mild Pain (1-3) Acetaminophen/Codeine Phosphate (Tylenol #3) 2 tab PO Q4H PRN PRN Reason: Moderate Pain (4-6) Albuterol/Ipratropium (Duoneb) 3 ml NEB [id number] [facility] Last Admin: 02/08/18 11:35 Dose: 3 ml Albuterol/Ipratropium (Duoneb) 3 ml NEB [id number] PRN PRN Reason: SOB &/or Wheezing Aspirin (Aspirin) 325 mg PO DAILY [facility] Last Admin: 02/08/18 09:59 Dose: 325 mg Atorvastatin Calcium (Lipitor) 40 mg PO HS [facility] Last Admin: 02/07/18 20:32 Dose: 40 mg Calcium Carbonate (Tums) 1,000 mg PO Q4H PRN PRN Reason: Heartburn or Indigestion Carvedilol (Coreg) 3.125 mg PO BID [facility] Last Admin: 02/08/18 10:01 Dose: 3.125 mg Clonidine (Catapres) 0.1 mg PO Q4H PRN PRN Reason: Systolic BP > 180 Docusate Sodium (Colace) 100 mg PO DAILY [facility] Last Admin: 02/08/18 10:00 Dose: 100 mg Famotidine (Pepcid) 20 mg PO BID [facility] Last Admin: 02/08/18 09:59 Dose: 20 mg Folic Acid (Folvite) 1 mg PO DAILY [facility] Last Admin: 02/08/18 10:00 Dose: 1 mg Furosemide (Lasix) 20 mg SLOW IVP DAILY [facility] Last Admin: 02/08/18 10:02 Dose: 20 mg Lisinopril (Zestril) 2.5 mg PO DAILY [facility] Last Admin: 02/08/18 10:00 Dose: 2.5 mg Lorazepam (Ativan) 1 mg PO Q4H PRN PRN Reason: ASE >=9 Mometasone Furoate/Formoterol Fumar (Dulera 200 Mcg/5 Mcg Inhaler) 2 puff INH BID-RT [facility] Last Admin: 02/08/18 06:44 Dose: 2 puff Multivitamins (Theragran) 1 tab PO DAILY [facility] Last Admin: 02/08/18 09:59 Dose: 1 tab Nitroglycerin (Nitro-Bid 2% Ointment) 0.5 inch TOP Q8HR [facility] Last Admin: 02/08/18 10:16 Dose: Not Given Nitroglycerin (Nitrostat) 0.4 mg SL Q5MIN PRN PRN Reason: Chest Pain Ondansetron HCl (Zofran Odt) 4 mg PO Q6H PRN PRN Reason: Nausea/Vomiting Ondansetron HCl (Zofran) 4 mg IVP Q6H PRN PRN Reason: Nausea/Vomiting Senna/Docusate Sodium (Senokot S) 2 tab PO BID PRN PRN Reason: Constipation Last Admin: 02/05/18 05:28 Dose: 2 tab Sodium Chloride (Flush - Normal Saline) 10 ml IVF PRN PRN PRN Reason: Saline Flush Last Admin: 02/08/18 10:06 Dose: 10 ml Thiamine HCl (Thiamine) 100 mg PO DAILY [facility] Last Admin: 02/08/18 10:03 Dose: 100 mg Tramadol HCl (Ultram) 50 mg PO Q6H PRN PRN Reason: Moderate Pain (4-6)
[2018-02-08] MEDS ORDERED: Communication Order-Pharmacy FS SCH (16:00)
[2018-02-08] MEDS: Atorvastatin Calcium 40 MG TAB PO SCH (21:30)
[2018-02-09] MEDS: Nitroglycerin 2% Ointment 1 INCH/1 GM Packet TOP SCH ×3 (05:07→20:58)
[2018-02-09] MEDS: Mometasone/Formoterol 120 PUFF INHALER INH SCH ×2 (07:55→19:27)
[2018-02-09] MEDS: Carvedilol 3.125 MG TAB PO SCH ×2 (08:27→20:58)
[2018-02-09] MEDS: Docusate 100 MG CAP PO SCH (08:27)
[2018-02-09] MEDS: Aspirin 325 MG TAB PO SCH (08:27)
[2018-02-09] MEDS: Famotidine 20 MG TAB PO SCH ×2 (08:27→20:58)
[2018-02-09] MEDS: Furosemide 20 MG/2 ML VIAL SLOW IVP SCH (08:28)
[2018-02-09] MEDS: Multivit, Therapeutic 1 TAB PO SCH (08:28)
[2018-02-09] MEDS: Folic Acid 1 MG TAB PO SCH (08:28)
[2018-02-09] MEDS: Lisinopril 2.5 MG TAB PO SCH (08:28)
--- NOTE | 2018-02-09 11:28 | PDOC.PN ---
- Subjective Encounter Start Date: 02/09/18 Encounter Start Time: 10:30 Subjective: pt up in bed no complains - Objective Resuscitation Status: Resuscitation Status FULL:Full Resuscitation Vital Signs & Weight: Vital Signs (12 hours) Temp Pulse Resp BP BP Pulse Ox 02/09/18 08:28 58 L 02/09/18 08:24 97.9 F 58 L 16 142/71 H 142/71 H 98 02/09/18 07:55 54 L 20 100 02/09/18 07:37 100 02/09/18 07:34 54 L 20 100 02/09/18 04:00 118/73 02/09/18 03:50 96 02/09/18 03:32 97.6 F 66 16 118/73 98 02/09/18 00:05 96 Weight Admit Weight 117 lb 14.4 oz Weight 114 lb 9.6 oz I&O: 02/08/18 02/09/18 02/10/18 06:59 06:59 06:59 Intake Total 1640 1614 Output Total 2085 1430 Balance -445 184 Result Diagrams: 02/04/18 04:40 02/04/18 04:40 Phys Exam - Physical Examination Neck: no nodes, no JVD, supple, full ROM Respiratory: no wheezing, no rales, no rhonchi, wheezing present, clear to auscultation bilateral Cardiovascular: RRR, no significant murmur, no rub, gallop, irregular Gastrointestinal: soft, non-tender, no distention, positive bowel sounds Dx/Plan (1) Acute systolic ACC/AHA stage C congestive heart failure Code(s): I50.21 - ACUTE SYSTOLIC (CONGESTIVE) HEART FAILURE Status: Acute (2) CAD (coronary artery disease) Code(s): I25.10 - ATHSCL HEART DISEASE OF [place] CORONARY ARTERY W/O ANG PCTRS Status: Chronic Qualifiers: Coronary Disease-Associated Artery/Lesion type: [place] artery [place] vs. transplanted heart: [place] heart Associated angina: angina presence unspecified Qualified Code(s): I25.10 - Atherosclerotic heart disease of [place] coronary artery without angina pectoris (3) Moderate tricuspid regurgitation Code(s): I07.1 - RHEUMATIC TRICUSPID INSUFFICIENCY Status: Acute - Plan pt waiting for his cath on sunday -: will continue his home meds -: heart rate low normal pt is asymtomatic. * . Review of Systems - Review of Systems Respiratory: negative: Cough, Dry, Shortness of Breath, Hemoptysis, SOB with Excertion, Pleuritic Pain, Sputum, Wheezing Cardiovascular: negative: chest pain, palpitations, orthopnea, paroxysmal nocturnal dyspnea, edema, light headedness, other Gastrointestinal: negative: Nausea, Vomiting, Abdominal Pain, Diarrhea, Constipation, Melena, Hematochezia, Other Genitourinary: negative: Dysuria, Frequency, Incontinence, Hematuria, Retention , Other - Medications/Allergies Allergies/Adverse Reactions: Allergies Allergy/AdvReac Type Severity Reaction Status Date / Time Penicillins Allergy Hives Verified 02/03/18 05:21 Medications: Current Medications Acetaminophen (Tylenol) 650 mg PO Q4H PRN PRN Reason: Headache/Fever/Mild Pain (1-3) Stop: 02/11/18 08:59 Acetaminophen/Codeine Phosphate (Tylenol #3) 1 tab PO Q4H PRN PRN Reason: Mild Pain (1-3) Stop: 02/11/18 08:59 Acetaminophen/Codeine Phosphate (Tylenol #3) 2 tab PO Q4H PRN PRN Reason: Moderate Pain (4-6) Stop: 02/11/18 08:59 Albuterol/Ipratropium (Duoneb) 3 ml NEB [id number] [facility] Stop: 02/11/18 08:59 Last Admin: 02/09/18 07:34 Dose: 3 ml Albuterol/Ipratropium (Duoneb) 3 ml NEB [id number] PRN PRN Reason: SOB &/or Wheezing Stop: 02/11/18 08:59 Aspirin (Aspirin) 325 mg PO DAILY [facility] Stop: 02/11/18 08:59 Last Admin: 02/09/18 08:27 Dose: 325 mg Atorvastatin Calcium (Lipitor) 40 mg PO HS [facility] Stop: 02/11/18 08:59 Last Admin: 02/08/18 21:30 Dose: 40 mg Calcium Carbonate (Tums) 1,000 mg PO Q4H PRN PRN Reason: Heartburn or Indigestion Stop: 02/11/18 08:59 Carvedilol (Coreg) 3.125 mg PO BID [facility] Last Admin: 02/09/18 08:27 Dose: 3.125 mg Clonidine (Catapres) 0.1 mg PO Q4H PRN PRN Reason: Systolic BP > 180 Stop: 02/11/18 08:59 Docusate Sodium (Colace) 100 mg PO DAILY [facility] Stop: 02/11/18 08:59 Last Admin: 02/09/18 08:27 Dose: 100 mg Famotidine (Pepcid) 20 mg PO BID [facility] Stop: 02/11/18 08:59 Last Admin: 02/09/18 08:27 Dose: 20 mg Folic Acid (Folvite) 1 mg PO DAILY [facility] Stop: 02/11/18 08:59 Last Admin: 02/09/18 08:28 Dose: 1 mg Furosemide (Lasix) 20 mg SLOW IVP DAILY [facility] Stop: 02/11/18 08:59 Last Admin: 02/09/18 08:28 Dose: 20 mg Lisinopril (Zestril) 2.5 mg PO DAILY [facility] Last Admin: 02/09/18 08:28 Dose: 2.5 mg Lorazepam (Ativan) 1 mg PO Q4H PRN PRN Reason: ASE >=9 Stop: 02/11/18 08:59 Miscellaneous Information (Communication Order-Pharmacy) 1 each FS ONE [facility] Stop: 02/11/18 12:00 Mometasone Furoate/Formoterol Fumar (Dulera 200 Mcg/5 Mcg Inhaler) 2 puff INH BID-RT [facility] Stop: 02/11/18 08:59 Last Admin: 02/09/18 07:55 Dose: 2 puff Multivitamins (Theragran) 1 tab PO DAILY [facility] Stop: 02/11/18 08:59 Last Admin: 02/09/18 08:28 Dose: 1 tab Nitroglycerin (Nitro-Bid 2% Ointment) 0.5 inch TOP Q8HR [facility] Stop: 02/11/18 08:59 Last Admin: 02/09/18 05:07 Dose: 0.5 inch Nitroglycerin (Nitrostat) 0.4 mg SL Q5MIN PRN PRN Reason: Chest Pain Stop: 02/11/18 08:59 Ondansetron HCl (Zofran Odt) 4 mg PO Q6H PRN PRN Reason: Nausea/Vomiting Stop: 02/11/18 08:59 Ondansetron HCl (Zofran) 4 mg IVP Q6H PRN PRN Reason: Nausea/Vomiting Stop: 02/11/18 08:59 Senna/Docusate Sodium (Senokot S) 2 tab PO BID PRN PRN Reason: Constipation Stop: 02/11/18 08:59 Last Admin: 02/05/18 05:28 Dose: 2 tab Sodium Chloride (Flush - Normal Saline) 10 ml IVF PRN PRN PRN Reason: Saline Flush Stop: 02/11/18 08:59 Last Admin: 02/08/18 10:06 Dose: 10 ml Thiamine HCl (Thiamine) 100 mg PO DAILY [facility] Stop: 02/11/18 08:59 Last Admin: 02/09/18 08:28 Dose: 100 mg Tramadol HCl (Ultram) 50 mg PO Q6H PRN PRN Reason: Moderate Pain (4-6) Stop: 02/11/18 08:59
--- NOTE | 2018-02-09 13:36 | PDOC.CTH ---
<Nasima Perez - Last Filed: 02/09/18 14:05> Cardiology Progress Note - Subjective The pt seen and examined. No overnight events. No cardiac complaints. He walked to bathroom with nurses without any difficulties, denied dizziness or lightheadedness. - Objective Vital Signs Temp Pulse Pulse Pulse Resp BP BP 02/09/18 12:29 135/77 02/09/18 12:26 61 20 02/09/18 11:18 98.0 F 56 L 16 02/09/18 10:34 55 L 56 L 135/63 02/09/18 08:28 58 L 02/09/18 08:24 97.9 F 58 L 16 142/71 H 02/09/18 07:55 54 L 20 02/09/18 07:37 02/09/18 07:34 54 L 20 02/09/18 04:00 118/73 02/09/18 03:50 02/09/18 03:32 97.6 F 66 16 BP BP Pulse Ox Pulse Ox Pulse Ox 02/09/18 12:29 02/09/18 12:26 96 02/09/18 11:18 135/77 97 02/09/18 10:34 108/72 96 97 02/09/18 08:28 02/09/18 08:24 142/71 H 98 02/09/18 07:55 100 02/09/18 07:37 100 02/09/18 07:34 100 02/09/18 04:00 02/09/18 03:50 96 02/09/18 03:32 118/73 98 Admit Weight 117 lb 14.4 oz Weight 114 lb 9.6 oz 02/08/18 02/09/18 02/10/18 06:59 06:59 06:59 Intake Total 1640 1614 Output Total 2085 1430 Balance -445 184 - Physical Examination General/Neuro: alert & oriented x3 Neck: no JVD present Lungs: other: (diminished at bases) Heart: RRR Abdomen: soft Extremities: other: (No edema) - Telemetry Telemetry Rhythm: SR 50s - Labs Result Diagrams: 02/04/18 04:40 02/04/18 04:40 Troponin/CKMB Troponin I 11.638 ng/mL (< 0.028) H* 02/03/18 04:40 - Assessment/Plan 1. 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 Acute on Chronic systolic HF - stable with Bblokcer and EMERITA. 3. HTN - hypotensive; cont. to monitor 4. Ex-smoker, quit about 2 wks ago - smoking cessation education given to the pt. 5. History of alcohol abuse - ETOH cessation education given to the pt. MAR reviewed Review of Systems - Review of Systems Constitutional: reports: no symptoms reported EENTM: reports: no symptoms reported Respiratory: reports: no symptoms reported Cardiac (ROS): reports: no symptoms reported ABD/GI: reports: no symptoms reported : reports: no symptoms reported Musculoskeletal: reports: no symptoms reported <Jessie Amin - Last Filed: 02/09/18 23:48> Cardiology Progress Note - Objective Vital Signs Temp Pulse Resp BP BP Pulse Ox 02/09/18 23:44 94 L 02/09/18 19:40 98.0 F 59 L 16 103/58 L 98 02/09/18 19:29 96 02/09/18 19:28 96 02/09/18 19:27 99 02/09/18 16:54 98.2 F 63 16 139/78 98 02/09/18 16:35 139/78 02/09/18 12:29 135/77 02/09/18 12:26 61 20 96 Admit Weight 117 lb 14.4 oz Weight 114 lb 9.6 oz 02/08/18 02/09/18 02/10/18 06:59 06:59 06:59 Intake Total 1640 1614 840 Output Total 2085 1430 1725 Balance -445 399 -055 - Labs Result Diagrams: 02/04/18 04:40 02/04/18 04:40 Troponin/CKMB Troponin I 11.638 ng/mL (< 0.028) H* 02/03/18 04:40 - Assessment/Plan Pt. seen and evaluated by me. I agree with the A/P by the CAT SC[employer] TECH. We have discussed the pt. and the plan.Chest clear RRR.
[2018-02-09] MEDS: Atorvastatin Calcium 40 MG TAB PO SCH (20:58)
[2018-02-10] MEDS: Mometasone/Formoterol 120 PUFF INHALER INH SCH ×2 (06:44→19:09)
[2018-02-10] MEDS ORDERED: Clindamycin/D5W 900 MG in Premix Bag 1 BAG IVPB SCH (07:15)
[2018-02-10] MEDS: Nitroglycerin 2% Ointment 1 INCH/1 GM Packet TOP SCH ×3 (07:47→21:33)
[2018-02-10] MEDS: Docusate 100 MG CAP PO SCH (08:49)
[2018-02-10] MEDS: Aspirin 325 MG TAB PO SCH (08:49)
[2018-02-10] MEDS: Carvedilol 3.125 MG TAB PO SCH ×2 (08:49→21:34)
[2018-02-10] MEDS: Folic Acid 1 MG TAB PO SCH (08:50)
[2018-02-10] MEDS: Famotidine 20 MG TAB PO SCH ×2 (08:50→21:35)
[2018-02-10] MEDS: Lisinopril 2.5 MG TAB PO SCH (08:50)
[2018-02-10] MEDS: Multivit, Therapeutic 1 TAB PO SCH (08:50)
[2018-02-10] MEDS: Furosemide 20 MG/2 ML VIAL SLOW IVP SCH (08:50)
[2018-02-10 09:18] LABS: #Basophils 0.1 thou/uL (0.0-0.2); #Eosinphils 0.7 thou/uL (0.0-0.7); #Lymphocytes 1.7 thou/uL (1.20-3.40); #Monocytes 0.8 thou/uL (0.11-0.59); #Neutrophils 4.2 thou/uL (1.40-6.50); %Basophils 1.3 % (0.0-1.0); %Eosinophils 8.9 % (0.0-10.0); %Lymphocytes 22.4 % (21.0-51.0); %Monocytes 10.2 % (0.0-10.0); %Neutrophils 57.2 % (42.0-75.0); Hemoglobin 13.6 g/dL (14.0-18.0); Mean Corpuscular HGB CONC 32.3 g/dL (32.0-36.0); Mean Corpuscular Hemoglobin 32.1 pg (27.0-31.0); Mean Corpuscular Volume 99.3 fL (78.0-98.0); Mean Platelet Volume 8.1 fL (7.4-10.4); Platelet Count 275 thou/uL (130-400); RBC Distribution Width 12.4 % (11.5-14.5); Red Blood Cell (RBC) Count 4.26 mill/uL (4.70-6.10); White Blood Cell (WBC) Count 7.4 thou/uL (4.8-10.8)
[2018-02-10 09:36] LABS: Anion Gap 11 mmol/L (10-20); BUN (Urea Nitrogen) 23 mg/dL (8.4-25.7); Calc. Creatinine Clearance 42 mL/min (70-130); Calcium 9.4 mg/dL (7.8-10.44); Carbon Dioxide 28 mmol/L (23-31); Chloride 101 mmol/L (98-107); Estimated GFR-MDRD 62; Glucose 118 mg/dL (83-110); Potassium 4.6 mmol/L (3.5-5.1); Sodium 135 mmol/L (136-145)
--- NOTE | 2018-02-10 13:06 | PDOC.PN ---
- Subjective Encounter Start Date: 02/10/18 Encounter Start Time: 10:00 Subjective: pt up in bed no complains - Objective Resuscitation Status: Resuscitation Status FULL:Full Resuscitation Vital Signs & Weight: Vital Signs (12 hours) Temp Pulse Resp BP BP BP Pulse Ox 02/10/18 12:42 129/72 02/10/18 11:38 98.1 F 56 L 18 129/72 99 02/10/18 11:08 55 L 18 99 02/10/18 08:50 67 02/10/18 08:46 98.5 F 67 18 127/84 127/74 99 02/10/18 06:48 99 02/10/18 06:47 53 L 18 99 02/10/18 06:44 55 L 18 99 02/10/18 03:37 97.7 F 64 16 108/68 100 02/10/18 03:29 96 Weight Admit Weight 117 lb 14.4 oz Weight 113 lb 6.4 oz I&O: 02/09/18 02/10/18 02/11/18 06:59 06:59 06:59 Intake Total 1614 1340 Output Total 1430 2575 Balance 184 -1235 Result Diagrams: 02/10/18 08:55 02/10/18 08:55 Phys Exam - Physical Examination Neck: no nodes, no JVD, supple, full ROM Respiratory: no wheezing, no rales, no rhonchi, wheezing present, clear to auscultation bilateral Cardiovascular: RRR, no significant murmur, no rub, gallop, irregular Gastrointestinal: soft, non-tender, no distention, positive bowel sounds Dx/Plan (1) Acute systolic ACC/AHA stage C congestive heart failure Code(s): I50.21 - ACUTE SYSTOLIC (CONGESTIVE) HEART FAILURE Status: Acute (2) CAD (coronary artery disease) Code(s): I25.10 - ATHSCL HEART DISEASE OF [place] CORONARY ARTERY W/O ANG PCTRS Status: Chronic Qualifiers: Coronary Disease-Associated Artery/Lesion type: [place] artery [place] vs. transplanted heart: [place] heart Associated angina: angina presence unspecified Qualified Code(s): I25.10 - Atherosclerotic heart disease of [place] coronary artery without angina pectoris (3) Moderate tricuspid regurgitation Code(s): I07.1 - RHEUMATIC TRICUSPID INSUFFICIENCY Status: Acute - Plan labs are stable -: pt going for CABG in am * . Review of Systems - Review of Systems Respiratory: negative: Cough, Dry, Shortness of Breath, Hemoptysis, SOB with Excertion, Pleuritic Pain, Sputum, Wheezing Cardiovascular: negative: chest pain, palpitations, orthopnea, paroxysmal nocturnal dyspnea, edema, light headedness, other Gastrointestinal: negative: Nausea, Vomiting, Abdominal Pain, Diarrhea, Constipation, Melena, Hematochezia, Other Genitourinary: negative: Dysuria, Frequency, Incontinence, Hematuria, Retention , Other - Medications/Allergies Allergies/Adverse Reactions: Allergies Allergy/AdvReac Type Severity Reaction Status Date / Time Penicillins Allergy Hives Verified 02/03/18 05:21 Medications: Current Medications Acetaminophen (Tylenol) 650 mg PO Q4H PRN PRN Reason: Headache/Fever/Mild Pain (1-3) Stop: 02/11/18 08:59 Acetaminophen/Codeine Phosphate (Tylenol #3) 1 tab PO Q4H PRN PRN Reason: Mild Pain (1-3) Stop: 02/11/18 08:59 Acetaminophen/Codeine Phosphate (Tylenol #3) 2 tab PO Q4H PRN PRN Reason: Moderate Pain (4-6) Stop: 02/11/18 08:59 Albuterol/Ipratropium (Duoneb) 3 ml NEB [id number] [facility] Stop: 02/11/18 08:59 Last Admin: 02/10/18 11:08 Dose: 3 ml Albuterol/Ipratropium (Duoneb) 3 ml NEB [id number] PRN PRN Reason: SOB &/or Wheezing Stop: 02/11/18 08:59 Aspirin (Aspirin) 325 mg PO DAILY [facility] Stop: 02/11/18 08:59 Last Admin: 02/10/18 08:49 Dose: 325 mg Atorvastatin Calcium (Lipitor) 40 mg PO HS [facility] Stop: 02/11/18 08:59 Last Admin: 02/09/18 20:58 Dose: 40 mg Calcium Carbonate (Tums) 1,000 mg PO Q4H PRN PRN Reason: Heartburn or Indigestion Stop: 02/11/18 08:59 Carvedilol (Coreg) 3.125 mg PO BID [facility] Last Admin: 02/10/18 08:49 Dose: 3.125 mg Clonidine (Catapres) 0.1 mg PO Q4H PRN PRN Reason: Systolic BP > 180 Stop: 02/11/18 08:59 Docusate Sodium (Colace) 100 mg PO DAILY [facility] Stop: 02/11/18 08:59 Last Admin: 02/10/18 08:49 Dose: 100 mg Famotidine (Pepcid) 20 mg PO BID [facility] Stop: 02/11/18 08:59 Last Admin: 02/10/18 08:50 Dose: 20 mg Folic Acid (Folvite) 1 mg PO DAILY [facility] Stop: 02/11/18 08:59 Last Admin: 02/10/18 08:50 Dose: 1 mg Furosemide (Lasix) 20 mg SLOW IVP DAILY [facility] Stop: 02/11/18 08:59 Last Admin: 02/10/18 08:50 Dose: 20 mg Clindamycin Phosphate/Dextrose (900 mg/ Device) 50 mls @ 100 mls/hr IVPB ONCALL -OR [facility] Levofloxacin 500 mg/ Device 100 mls @ 100 mls/hr IVPB ONCALL-OR [facility] Lisinopril (Zestril) 2.5 mg PO DAILY [facility] Last Admin: 02/10/18 08:50 Dose: 2.5 mg Lorazepam (Ativan) 1 mg PO Q4H PRN PRN Reason: ASE >=9 Stop: 02/11/18 08:59 Miscellaneous Information (Communication Order-Pharmacy) 1 each FS ONE [facility] Stop: 02/11/18 12:00 Mometasone Furoate/Formoterol Fumar (Dulera 200 Mcg/5 Mcg Inhaler) 2 puff INH BID-RT [facility] Stop: 02/11/18 08:59 Last Admin: 02/10/18 06:44 Dose: 2 puff Multivitamins (Theragran) 1 tab PO DAILY [facility] Stop: 02/11/18 08:59 Last Admin: 02/10/18 08:50 Dose: 1 tab Nitroglycerin (Nitro-Bid 2% Ointment) 0.5 inch TOP Q8HR [facility] Stop: 02/11/18 08:59 Last Admin: 02/10/18 07:47 Dose: Not Given Nitroglycerin (Nitrostat) 0.4 mg SL Q5MIN PRN PRN Reason: Chest Pain Stop: 02/11/18 08:59 Ondansetron HCl (Zofran Odt) 4 mg PO Q6H PRN PRN Reason: Nausea/Vomiting Stop: 02/11/18 08:59 Ondansetron HCl (Zofran) 4 mg IVP Q6H PRN PRN Reason: Nausea/Vomiting Stop: 02/11/18 08:59 Senna/Docusate Sodium (Senokot S) 2 tab PO BID PRN PRN Reason: Constipation Stop: 02/11/18 08:59 Last Admin: 02/05/18 05:28 Dose: 2 tab Sodium Chloride (Flush - Normal Saline) 10 ml IVF PRN PRN PRN Reason: Saline Flush Stop: 02/11/18 08:59 Last Admin: 02/08/18 10:06 Dose: 10 ml Thiamine HCl (Thiamine) 100 mg PO DAILY [facility] Stop: 02/11/18 08:59 Last Admin: 02/10/18 08:50 Dose: 100 mg Tramadol HCl (Ultram) 50 mg PO Q6H PRN PRN Reason: Moderate Pain (4-6) Stop: 02/11/18 08:59
--- NOTE | 2018-02-10 14:14 | PDOC.CTH ---
<Nasima Perez - Last Filed: 02/10/18 14:12> Cardiology Progress Note - Subjective The pt seen and examined. No overnight events. No cardiac complaints. - Objective Vital Signs Temp Pulse Resp BP BP BP Pulse Ox 02/10/18 12:42 129/72 02/10/18 11:38 98.1 F 56 L 18 129/72 99 02/10/18 11:08 55 L 18 99 02/10/18 08:50 67 02/10/18 08:46 98.5 F 67 18 127/84 127/74 99 02/10/18 06:48 99 02/10/18 06:47 53 L 18 99 02/10/18 06:44 55 L 18 99 02/10/18 03:37 97.7 F 64 16 108/68 100 02/10/18 03:29 96 Admit Weight 117 lb 14.4 oz Weight 113 lb 6.4 oz 02/09/18 02/10/18 02/11/18 06:59 06:59 06:59 Intake Total 1614 1340 Output Total 1430 2575 Balance 184 -1235 - Physical Examination General/Neuro: alert & oriented x3 Neck: no JVD present Lungs: CTA Heart: RRR Abdomen: soft Extremities: other: (No edema) Other PE findings: SR 70s - Labs Result Diagrams: 02/10/18 08:55 02/10/18 08:55 Troponin/CKMB Troponin I 11.638 ng/mL (< 0.028) H* 02/03/18 04:40 - Assessment/Plan 1. Severe CAD with Hx of CABG about 10 years ago - plan for Redo CABG on by Dr Rolle; 2. Acute on Chronic systolic HF - stable with Bblokcer and EMERITA. 3. HTN - stable; cont. to monitor 4. Ex-smoker, quit about 2 wks ago - smoking cessation education given to the pt. 5. History of alcohol abuse - ETOH cessation education given to the pt. MAR reviewed Review of Systems - Review of Systems Constitutional: reports: no symptoms reported EENTM: reports: no symptoms reported Respiratory: reports: no symptoms reported Cardiac (ROS): reports: no symptoms reported ABD/GI: reports: no symptoms reported : reports: no symptoms reported Musculoskeletal: reports: no symptoms reported Skin: reports: no symptoms reported Neurological: reports: no symptoms reported <Jessie Amin - Last Filed: 02/10/18 22:20> Cardiology Progress Note - Objective Vital Signs Temp Pulse Resp BP BP BP Pulse Ox 02/10/18 19:40 97.6 F 68 14 110/62 97 02/10/18 19:12 98 02/10/18 19:11 98 02/10/18 19:09 98 02/10/18 16:26 119/71 02/10/18 15:57 97.7 F 60 15 119/71 98 02/10/18 12:42 129/72 02/10/18 11:38 98.1 F 56 L 18 129/72 99 02/10/18 11:08 55 L 18 99 Admit Weight 117 lb 14.4 oz Weight 113 lb 6.4 oz 02/09/18 02/10/18 02/11/18 06:59 06:59 06:59 Intake Total 1614 1340 1440 Output Total 1430 2575 3150 Balance 184 -1855 -1710 - Labs Result Diagrams: 02/10/18 08:55 02/10/18 08:55 Troponin/CKMB Troponin I 11.638 ng/mL (< 0.028) H* 02/03/18 04:40 - Assessment/Plan Pt. seen and evaluated by me. I agree with the A/P by the [employer]INEERING INTERN. We have discussed the pt. and the plan.Chest clear RRR.
[2018-02-10] MEDS: Atorvastatin Calcium 40 MG TAB PO SCH (21:35)
[2018-02-11] MEDS ORDERED: Clindamycin/D5W 900 mg/50 ml Premix Bag ONE (06:10)
[2018-02-11] MEDS ORDERED: Levofloxacin 500 mg/D5W 100 ml Premix Bag ONE (06:10)
[2018-02-11] MEDS: Carvedilol 3.125 MG TAB PO SCH (06:12)
[2018-02-11] MEDS: Lisinopril 2.5 MG TAB PO SCH (06:12)
[2018-02-11] MEDS ORDERED: Fentanyl 250 MCG/5 ML VIAL ONE (06:41)
[2018-02-11] MEDS ORDERED: Midazolam HCl 5 mg/5 ml Vial ONE (06:41)
[2018-02-11] MEDS ORDERED: Albumin 5% 500 ML ONE (06:42)
[2018-02-11] MEDS ORDERED: Heparin 10,000 UNITS/1 ML VIAL 30,000 UNITS in Sodium Chloride 0.9% 1,000 ML FS SCH (06:45)
[2018-02-11] MEDS ORDERED: Norepinephrine 8 MG/0.9% NS 250 ML ONE (06:48)
[2018-02-11] MEDS ORDERED: Phenylephrine HCL 10 MG/ML VIAL ONE (07:08)
[2018-02-11] MEDS ORDERED: Milrinone 10 MG/10 ML VIAL ONE (07:31)
[2018-02-11] MEDS: Mometasone/Formoterol 120 PUFF INHALER INH SCH (07:43)
[2018-02-11] MEDS: Nitroglycerin 2% Ointment 1 INCH/1 GM Packet TOP SCH (07:50)
[2018-02-11] MEDS ORDERED: ePHEDrine/0.9% NaCl/PF SYRINGE 50 mg/10 ml ONE ×2 (09:32→14:37)
[2018-02-11 12:05] LABS: Actual Bicarbonate (HCO3a) 21.2 mEq/L (22-28); Base Excess (BEa) -3.9 mEq/L (-2.0 to +3.0); CO2 Tension 38.5 mmHg (35.0-45.0); Calcium, Ionized 1.05 mmol/L (1.12-1.30); Carboxyhemoglobin (COHb) 0.8 gm% (0.0-3.0); Hemoglobin (Hb) 11.5 g/dL (14.0-18.0); O2 Tension (PaO2) 243.7 mmHg (> 70.0); pH, Arterial 7.36 (7.35-7.45)
[2018-02-11 12:07] LABS: Puncture Site ALINE
[2018-02-11 12:08] LABS: ALV-art Gradient 135.975 (0-20)
--- NOTE | 2018-02-11 12:24 | OP ---
DATE OF PROCEDURE: 02/11/2018 PREOPERATIVE DIAGNOSES: Coronary artery disease, hypertension, hyperlipidemia, tobacco abuse, noncompliance. POSTOPERATIVE DIAGNOSES: Coronary artery disease, hypertension, hyperlipidemia , tobacco abuse, noncompliance. PROCEDURE: Redo sternotomy with coronary bypass grafting x3: 1) Reversed saphenous vein to 1.5 mm LAD at the apex; 2) reverse saphenous vein to 2.5 mm OM; 3) reverse saphenous vein to 1.0 mm PDA. SURGEON: Tj Rolle M.D. and Dr. Chau Downs. ANESTHESIA: General endotracheal - Dr. Denis Salcedo. PUMP TIME: 81 minutes. CROSS-CLAMP TIME: 31 minutes. LOW CORE TEMP: 32-degree Celsius. ACCOUNTS MANAGER: Monico Welsh. DRAINS: 24-[place] chest tubes x2. DRIPS: None. TRANSFUSIONS: None. PROCEDURE IN DETAIL: After consent was obtained, the patient was brought to operating room and placed in supine position on the operating room table. Appropriate anesthetic monitor was placed and general endotracheal anesthesia induced. Chest, arms and legs were prepped and draped in usual sterile fashion. Greater saphenous vein was harvested from the right lower extremity utilizing endoscopic technique. Wounds irrigated and closed in layers. Median sternotomy was performed with an oscillating saw. Wires were removed. A sternotomy was completed with the oscillating saw. The left sternal table was elevated with the Rultract retractor. Posterior sternal plate was from the epicardium with electrocautery and sharp dissection. The two PA retractor was then placed and the sternal plate spread. Dissection was begun at the diaphragm and carried around the right side of the heart, exposing the right atrium and aorta. Once exposure of the aorta and right atrium been obtained, the patient was systemically heparinized. Aortic and atrial cannulation was performed. Retrograde prime was performed. The patient was placed on cardiopulmonary bypass. The remainder of the dissection was completed , completely dissected the pericardium from the epicardium. Aortic cross-clamp was applied and sanguinous cardioplegic arrest obtained. The mammary artery was isolated and clamped with a bulldog clamp. One liter of antegrade [place] cardioplegia was given. Reversed saphenous vein was anastomosed to the PDA in end-to-side fashion with running 7-0 Prolene suture. Anastomosis tested and was hemostatic. Reverse saphenous vein was anastomosed to the OM in end-to- side fashion with a running 7-0 Prolene suture. Anastomosis tested and was hemostatic. LAD was exposed just distal to the mammary bypass. The LAD at this point was heavily calcified. It was followed distally all the way to the apex where it became soft. Saphenous vein was anastomosed to the LAD with running 7-0 Prolene suture. Anastomosis tested and was hemostatic. Cross- clamp was removed and partial occluding clamp placed. Saphenous vein to the OM was anastomosed to aortic root. Saphenous vein to the PDA was anastomosed to the anglin of the OM graft. Partial occluding clamp was removed and grafts deaired. Saphenous vein to LAD was anastomosed to side wall of the OM graft. All anastomoses were inspected for hemostasis. A stitch was placed in the toe of the OM graft and in the toe of the LAD graft for hemostasis. There were 2 areas on the epicardium were sutures and FloSeal were placed to obtain hemostasis in the right ventricle and around the coronary sinus. The patient was warmed and weaned from cardiopulmonary bypass. After resumption of sinus rhythm, good ____, and temperature greater than 36.5, bypass was discontinued. Transfusions were given. Protamine was administered. Decannulation was performed and pursestring sutures secured. A FloSeal was placed on the right ventricle for hemostasis. Once hemostasis had been obtained, vancomycin paste was placed on the sternal edges. The sternum was closed with #7 wire. 24- [place] chest tubes were placed in the mediastinum x2. The sternum was treated with platelet-rich plasma and wires twisted. The wounds were irrigated, treated with platelet-poor plasma, and closed in multiple layers. Needle, sponge, and instrument counts were all reported correct at the end of the procedure. The patient was transferred to the Intensive Care Unit in stable, but critical condition. AMADOU
[2018-02-11] MEDS ORDERED: hydrALAZINE 20 MG/ML VIAL SLOW IVP PRN (12:37)
[2018-02-11] MEDS ORDERED: Bisacodyl 5 MG TAB PO PRN (12:37)
[2018-02-11] MEDS ORDERED: Promethazine HCl 25 MG/ML VIAL IM PRN (12:37)
[2018-02-11] MEDS ORDERED: Nitroglycerin 50 MG/250 ML BOT 250 ML IVPB PRN (12:37)
[2018-02-11] MEDS ORDERED: Potassium Chloride 20 MEQ/100 ML PREMIX BAG IVPB PRN (12:37)
[2018-02-11] MEDS ORDERED: Bisacodyl 10 MG SUPP PR PRN (12:37)
[2018-02-11] MEDS ORDERED: D5 1/2 NS w/20 mEq KCL 1,000 ML IV SCH (12:37)
[2018-02-11] MEDS ORDERED: Magnesium 2 GM/NS 0.9% 100 ML 2 GM in Premix Bag 1 BAG IVPB SCH (12:37)
[2018-02-11] MEDS ORDERED: Acetaminophen 325 MG TAB PO PRN (12:37)
[2018-02-11] MEDS ORDERED: Fentanyl 100 MCG/2 ML VIAL SLOW IVP PRN ×2 (12:37)
[2018-02-11] MEDS ORDERED: Norepinephrine 8 MG/0.9% NS 250 ML IVPB PRN (12:37)
[2018-02-11] MEDS ORDERED: Hetastarch 6% 500 ML 500 ML IVPB PRN (12:37)
[2018-02-11] MEDS ORDERED: Mag-Al 1200 mg/1200 mg/30 ML UDCUP PO PRN (12:37)
[2018-02-11] MEDS ORDERED: Guaifenesin DM 100-10/5 ML UDCUP PO PRN (12:37)
[2018-02-11 12:53] LABS: INR-International Normal Ratio 1.5; PTT 34.5 SEC (22.9-36.1); Prothrombin Time 18.1 SEC (12.0-14.7)
[2018-02-11] MEDS ORDERED: Dextrose 50% Abboject 50 ML SYRINGE SLOW IVP PRN (13:03)
[2018-02-11] MEDS ORDERED: Dextrose 5% in Water 1,000 ML IV PRN (13:03)
[2018-02-11 13:07] LABS: Anion Gap 8 mmol/L (10-20); BUN (Urea Nitrogen) 22 mg/dL (8.4-25.7); Calc. Creatinine Clearance 57 mL/min (70-130); Calcium 7.3 mg/dL (7.8-10.44); Carbon Dioxide 22 mmol/L (23-31); Chloride 111 mmol/L (98-107); Estimated GFR-MDRD 88; Glucose 135 mg/dL (83-110); Potassium 4.6 mmol/L (3.5-5.1); Sodium 136 mmol/L (136-145)
[2018-02-11 13:08] LABS: #Basophils 0.1 thou/uL (0.0-0.2); #Eosinphils 0.6 thou/uL (0.0-0.7); #Lymphocytes 2.7 thou/uL (1.20-3.40); #Monocytes 1.2 thou/uL (0.11-0.59); #Neutrophils 14.3 thou/uL (1.40-6.50); %Basophils 0.3 % (0.0-1.0); %Eosinophils 3.3 % (0.0-10.0); %Lymphocytes 14.5 % (21.0-51.0); %Monocytes 6.3 % (0.0-10.0); %Neutrophils 75.6 % (42.0-75.0); Band 5 % (5-11); Eosinophils 3 % (0-10); Hemoglobin 10.6 g/dL (14.0-18.0); Lymphocytes 18 % (21-51); MDiff Complete? YES; Mean Platelet Volume 8.3 fL (7.4-10.4); Monocytes 3 % (0-10); Neutrophil 70 % (42-75); PLT Morphology Comment Appears Adequate; Platelet Count 170 thou/uL (130-400); RBC Distribution Width 12.5 % (11.5-14.5); RBC Morphology 1; Red Blood Cell (RBC) Count 3.32 mill/uL (4.70-6.10); White Blood Cell (WBC) Count 18.9 thou/uL (4.8-10.8)
[2018-02-11] MEDS: Insulin Regular 300 UNITS/3 ML VIAL SC PRN ×2 (13:28→16:28)
[2018-02-11] MEDS ORDERED: Magnesium 2 GM/50 ML 2 GM in Premix Bag 1 BAG IVPB SCH (14:00)
--- NOTE | 2018-02-11 14:18 | RAD ---
CHEST ONE VIEW: History: 73-year-old male with history of post pulmonary artery bypass graft. Comparison: 02-02-18 FINDINGS: Recent post underlying sternotomy. Tracheotomy tube in place. Chest tubes in place. Minimal parenchym al density in the left lower lobe, nonspecific, possibly some subsegmental atelectasis or post-operat anupam change. No pneumothorax or pleural effusion. IMPRESSION: Recent post underlying sternotomy and coronary artery bypass changes. Minimal parenchymal density in the left lower lobe, possibly mild subsegmental atelectasis versus some post-operative change. Contin ued short term follow up. POS: [facility]
[2018-02-11] MEDS: Ketorolac Tromethamine 30 MG/ML VIAL IVP SCH ×2 (14:19→19:32)
[2018-02-11] MEDS: Clindamycin/D5W 900 MG in Premix Bag 1 BAG IVPB SCH ×2 (14:19→19:37)
[2018-02-11] MEDS ORDERED: Mannitol 12.5 GM/50 ML ONE (14:37)
[2018-02-11] MEDS ORDERED: Papaverine 60 MG/2 ML VIAL ONE (14:37)
[2018-02-11] MEDS ORDERED: Heparin 5,000 UNITS/ML VIAL ONE (14:37)
[2018-02-11] MEDS ORDERED: Cardioplegic Soln 1,000 ML BAG ONE (14:37)
[2018-02-11] MEDS ORDERED: Protamine Sulfate 250 MG/25 ML VIAL ONE (14:37)
[2018-02-11] MEDS ORDERED: Thrombin 5000 UNITS/5 ML VIAL ONE (14:37)
[2018-02-11] MEDS ORDERED: Magnesium 5 GM/10 ML VIAL ONE (14:37)
[2018-02-11] MEDS ORDERED: Aminocaproic Acid 5 GM/20 ML VIAL ONE (14:37)
[2018-02-11] MEDS ORDERED: Lidocaine 2% PF 100 mg/5 ml Syringe ONE (14:37)
[2018-02-11] MEDS ORDERED: Sodium Bicarb 50 MEQ/50 ML VIAL ONE (14:37)
[2018-02-11] MEDS ORDERED: Heparin 30,000 units/30 ml VIAL ONE ×2 (14:37)
[2018-02-11] MEDS ORDERED: Potassium Chloride 60 MEQ/30 ML VIAL ONE (14:37)
[2018-02-11] MEDS ORDERED: Calcium Chloride 1 GM/10 ML Abboject SYRINGE ONE (14:37)
[2018-02-11] MEDS ORDERED: PHENYLEPHRINE-NS 100 MCG/ML 10 ML SYRINGE ONE (14:37)
[2018-02-11 15:13] LABS: Actual Bicarbonate (HCO3a) 21.2 mEq/L (22-28); Base Excess (BEa) -3.3 mEq/L (-2.0 to +3.0); CO2 Tension 35.9 mmHg (35.0-45.0); Calcium, Ionized 1.06 mmol/L (1.12-1.30); Carboxyhemoglobin (COHb) 0.8 gm% (0.0-3.0); Hemoglobin (Hb) 10.9 g/dL (14.0-18.0); O2 Tension (PaO2) 102.3 mmHg (> 70.0); Potassium - ABG Lab 4.92 mmol/L (3.70-5.30); pH, Arterial 7.39 (7.35-7.45)
[2018-02-11 15:14] LABS: ALV-art Gradient 80.985 (0-20); Puncture Site ALINE
[2018-02-11] MEDS: Ondansetron PF 4 MG/2 ML Vial IVP PRN ×2 (16:28→22:05)
--- NOTE | 2018-02-11 18:21 | PDOC.PN ---
- Subjective Encounter Start Date: 02/11/18 Encounter Start Time: 10:30 Subjective: pt up in bed post CABG - Objective Resuscitation Status: Resuscitation Status FULL:Full Resuscitation Vital Signs & Weight: Vital Signs (12 hours) Temp Pulse Resp BP Pulse Ox 02/11/18 16:00 97.9 F 100 02/11/18 15:25 96 02/11/18 15:15 83 95/60 02/11/18 14:35 22 H 02/11/18 13:05 15 02/11/18 12:37 100 02/11/18 12:30 100 02/11/18 12:00 97.6 F 65 85/50 L 100 02/11/18 11:56 12 Weight Admit Weight 117 lb 14.4 oz Weight 113 lb Most Recent Monitor Data Heart Rate from ECG 81 NIBP 110/80 NIBP BP-Mean 90 Respiration from ECG 15 SpO2 94 I&O: 02/10/18 02/11/18 02/12/18 06:59 06:59 06:59 Intake Total 1340 1590 Output Total 2575 4890 1080 [facility] -1235 -2060 -1080 Result Diagrams: 02/11/18 11:55 02/11/18 11:55 Additional Labs: Accuchecks 02/11/18 02/11/18 16:04 11:59 POC Glucose 129 H 139 H Phys Exam - Physical Examination Neck: no nodes, no JVD, supple, full ROM Respiratory: no wheezing, no rales, no rhonchi, wheezing present, clear to auscultation bilateral Cardiovascular: RRR mild pericardial rub, dressing intact Gastrointestinal: soft, non-tender, no distention, positive bowel sounds Dx/Plan (1) Acute systolic ACC/AHA stage C congestive heart failure Code(s): I50.21 - ACUTE SYSTOLIC (CONGESTIVE) HEART FAILURE Status: Acute (2) CAD (coronary artery disease) Code(s): I25.10 - ATHSCL HEART DISEASE OF [place] CORONARY ARTERY W/O ANG PCTRS Status: Chronic Qualifiers: Coronary Disease-Associated Artery/Lesion type: [place] artery [place] vs. transplanted heart: [place] heart Associated angina: angina presence unspecified Qualified Code(s): I25.10 - Atherosclerotic heart disease of [place] coronary artery without angina pectoris (3) Moderate tricuspid regurgitation Code(s): I07.1 - RHEUMATIC TRICUSPID INSUFFICIENCY Status: Acute - Plan s/p CABG pod#1, pt doing well -: elevated wbc possible reactive will monitor * . Review of Systems - Review of Systems Respiratory: negative: Cough, Dry, Shortness of Breath, Hemoptysis, SOB with Excertion, Pleuritic Pain, Sputum, Wheezing Cardiovascular: negative: chest pain, palpitations, orthopnea, paroxysmal nocturnal dyspnea, edema, light headedness, other Gastrointestinal: negative: Nausea, Vomiting, Abdominal Pain, Diarrhea, Constipation, Melena, Hematochezia, Other Genitourinary: negative: Dysuria, Frequency, Incontinence, Hematuria, Retention , Other - Medications/Allergies Allergies/Adverse Reactions: Allergies Allergy/AdvReac Type Severity Reaction Status Date / Time Penicillins Allergy Hives Verified 02/03/18 05:21 Medications: Current Medications Acetaminophen (Tylenol) 650 mg PO Q6H PRN PRN Reason: Headache/Fever Or Mild Pain Hydrocodone Bitart/Acetaminophen ([place] 5/325) 1 tab PO Q4H PRN PRN Reason: Moderate Pain (4-6) Hydrocodone Bitart/Acetaminophen ([place] 5/325) 2 tab PO Q4H PRN PRN Reason: Severe Pain (7-10) Al Hydroxide/Mg Hydroxide (Maalox) 30 ml PO Q4H PRN PRN Reason: Indigestion Albumin Human (Albumin 5%) 12.5 gm IVPB Q6H PRN PRN Reason: To Maintain SBP> 90 mmHG Stop: 02/12/18 12:38 Albumin Human (Albumin 5%) 25 gm IVPB Q6H PRN PRN Reason: To Maintain SBP > 90 mmHG Stop: 02/12/18 12:38 Last Admin: 02/11/18 13:08 Dose: 25 gm Albuterol/Ipratropium (Duoneb) 3 ml NEB [id number] PRN PRN Reason: SHORTNESS OF BREATH Aspirin (Aspirin) 325 mg PO DAILY ECTOR Bisacodyl (Dulcolax) 10 mg PO Q12H PRN PRN Reason: Constipation Bisacodyl (Dulcolax) 10 mg MD Q12H PRN PRN Reason: Constipation Dextrose/Water (Dextrose 50%) 25 gm SLOW IVP PRN PRN PRN Reason: PER HYPOGLYCEMIC PROTOCOL Famotidine (Pepcid) 20 mg SLOW IVP Q12HR ECTOR Fentanyl (Sublimaze) 25 mcg SLOW IVP Q2H PRN PRN Reason: Moderate Pain (4-6) Stop: 02/13/18 11:38 Fentanyl (Sublimaze) 50 mcg SLOW IVP Q2H PRN PRN Reason: Severe Pain (7-10) Stop: 02/13/18 11:38 Last Admin: 02/11/18 13:07 Dose: 50 mcg Glucagon (Glucagon) 1 mg SC PRN PRN PRN Reason: PER HYPOGLYCEMIC PROTOCOL Guaifenesin/Dextromethorphan (Robitussin Dm) 15 ml PO Q4H PRN PRN Reason: Cough Hydralazine HCl (Apresoline) 10 mg SLOW IVP Q6H PRN PRN Reason: To Maintain SBP< 140mmHG Clindamycin Phosphate/Dextrose (900 mg/ Device) 50 mls @ 100 mls/hr IVPB 0200, 0800,1400,2000 [facility] Stop: 02/12/18 08:29 Last Admin: 02/11/18 14:19 Dose: 50 mls Potassium Chloride/Dextrose/Sod Cl (D5 1/2 Ns W/20 Meq Kcl) 1,000 mls @ 40 mls/ hr IV .Q24H ECTOR Last Admin: 02/11/18 13:16 Dose: 1,000 mls Hetastarch/Sodium Chloride (Hespan) 500 mls @ 0 mls/hr IVPB PRN PRN PRN Reason: To Maintain SBP > 90mmHg Stop: 02/12/18 11:38 Levofloxacin 500 mg/ Device 100 mls @ 100 mls/hr IVPB 0600 [facility] Stop: 02/12/18 06:59 Norepinephrine Bitartrate (Levophed) 250 mls @ 0 mls/hr IVPB PRN PRN; Protocol PRN Reason: To maintain SBP > 90 mmHG Nitroglycerin/Dextrose (Nitroglycerin 50 Mg/250 Ml Bot) 250 mls @ 0 mls/hr IVPB PRN PRN; Protocol PRN Reason: To Maintain SBP< 140mmHG Insulin Human Regular 100 (units/ Sodium Chloride) 101 mls @ 0 mls/hr IVPB INF ECTOR; Protocol Dextrose/Water (D5w) 1,000 mls @ 0 mls/hr IV INF PRN PRN Reason: PRN HYPOGLYCEMIC PROTOCOL Magnesium Sulfate 2 gm/ Device 50 mls @ 100 mls/hr IVPB QAM ECTOR Stop: 02/13/18 09:29 Insulin Glargine (Lantus) 0 units SC ONE PRN PRN Reason: PER OPEN HEART ORDERS Stop: 02/12/18 13:04 Insulin Human Regular (Humulin R) 0 units SC Q4H PRN; Protocol PRN Reason: POST OP SLIDING SCALE Last Admin: 02/11/18 16:28 Dose: 2 unit Ketorolac Tromethamine (Toradol) 30 mg IVP 0200,0800,1400,2000 [facility] Stop: 02/16/18 14:01 Last Admin: 02/11/18 14:19 Dose: 30 mg Morphine Sulfate (Morphine) 2 mg SLOW IVP Q15MIN PRN PRN Reason: Severe Pain (7-10) Ondansetron HCl (Zofran) 4 mg IVP Q6H PRN PRN Reason: Nausea/Vomiting Last Admin: 02/11/18 16:28 Dose: 4 mg Potassium Chloride (Kcl) 20 meq IVPB PRN PRN PRN Reason: K level </= 4.0 Promethazine HCl (Phenergan) 6.25 mg IM Q4H PRN PRN Reason: Nausea/Vomiting Simvastatin (Zocor) 40 mg PO QPM [facility] Sodium Chloride (Flush - Normal Saline) 10 ml IVF PRN PRN PRN Reason: Saline Flush
[2018-02-11 18:26] LABS: Hemoglobin 10.4 g/dL (14.0-18.0)
[2018-02-11 18:37] LABS: Potassium 5.2 mmol/L (3.5-5.1)
[2018-02-11] MEDS ORDERED: Famotidine/PF 20 mg/2ml Vial SLOW IVP SCH (21:00)
[2018-02-11] MEDS: Simvastatin 40 MG TAB PO SCH (21:21)
[2018-02-11] MEDS: HYDROcodone/Acetaminophen 5/325 mg Tablet PO PRN (21:21)
[2018-02-12] MEDS: Insulin Regular 300 UNITS/3 ML VIAL SC PRN (01:27)
[2018-02-12] MEDS: Ketorolac Tromethamine 30 MG/ML VIAL IVP SCH ×4 (01:43→21:17)
[2018-02-12] MEDS: Clindamycin/D5W 900 MG in Premix Bag 1 BAG IVPB SCH ×2 (01:44→08:40)
[2018-02-12 02:16] LABS: #Eosinphils 0.1 thou/uL (0.0-0.7); #Lymphocytes 1.1 thou/uL (1.20-3.40); #Neutrophils 8.6 thou/uL (1.40-6.50); %Basophils 0.2 % (0.0-1.0); %Eosinophils 0.5 % (0.0-10.0); %Lymphocytes 9.9 % (21.0-51.0); %Monocytes 9.5 % (0.0-10.0); %Neutrophils 79.9 % (42.0-75.0); Hemoglobin 8.4 g/dL (14.0-18.0); Mean Corpuscular HGB CONC 32.7 g/dL (32.0-36.0); Mean Corpuscular Hemoglobin 32.7 pg (27.0-31.0); Mean Platelet Volume 8.7 fL (7.4-10.4); Platelet Count 135 thou/uL (130-400); RBC Distribution Width 12.6 % (11.5-14.5); Red Blood Cell (RBC) Count 2.56 mill/uL (4.70-6.10); White Blood Cell (WBC) Count 10.7 thou/uL (4.8-10.8)
[2018-02-12 03:10] LABS: Anion Gap 11 mmol/L (10-20); BUN (Urea Nitrogen) 29 mg/dL (8.4-25.7); Calc. Creatinine Clearance 34 mL/min (70-130); Calcium 7.8 mg/dL (7.8-10.44); Carbon Dioxide 20 mmol/L (23-31); Chloride 111 mmol/L (98-107); Estimated GFR-MDRD 48; Glucose 129 mg/dL (83-110); Potassium 5.3 mmol/L (3.5-5.1); Sodium 137 mmol/L (136-145)
[2018-02-12] MEDS: Ondansetron PF 4 MG/2 ML Vial IVP PRN ×3 (07:14→21:18)
[2018-02-12] MEDS: Budesonide 0.5 MG/2 ML NEB INH SCH ×2 (07:49→19:08)
[2018-02-12] MEDS ORDERED: Magnesium 2 GM/NS 0.9% 100 ML 2 GM in Premix Bag 1 BAG IVPB SCH (09:00)
--- NOTE | 2018-02-12 09:33 | RAD ---
PORTABLE CHEST: History: Post op sternotomy follow up. CCU follow up. Comparison: 02-11-18 FINDINGS: ET tube has been removed. New linear atelectasis/infiltrate seen extending from the left hilum into the left lung base. Cardiomegaly and post op sternotomy changes. Right lung remains clear. IMPRESSION: New linear atelectasis/infiltrate in the left lower lobe. POS: [facility]
[2018-02-12] MEDS: Aspirin 325 MG TAB PO SCH (09:47)
[2018-02-12] MEDS: Magnesium 2 GM/50 ML 2 GM in Premix Bag 1 BAG IVPB SCH (11:10)
[2018-02-12] MEDS: HYDROcodone/Acetaminophen 5/325 mg Tablet PO PRN ×2 (13:15→21:17)
[2018-02-12] MEDS: Simvastatin 40 MG TAB PO SCH (21:17)
[2018-02-12] MEDS: Atorvastatin Calcium 40 MG TAB PO SCH (21:18)
[2018-02-12] MEDS ORDERED: Polyethylene Glycol 3350 17 GM Packet PO PRN (23:47)
--- NOTE | 2018-02-12 23:50 | PDOC.PN ---
- Subjective Encounter Start Date: 02/12/18 Encounter Start Time: 15:00 Patient seen and examined for NSTEMI s/p CABG. On low dose Levophed. No new complaints. No overnight events - Objective Resuscitation Status: Resuscitation Status FULL:Full Resuscitation MAR Reviewed: Yes Vital Signs & Weight: Vital Signs (12 hours) Temp Pulse Resp Pulse Ox 02/12/18 20:00 98.2 F 94 L 02/12/18 19:08 72 20 02/12/18 12:00 98.3 F Weight Admit Weight 117 lb 14.4 oz Weight 128 lb 15.527 oz Most Recent Monitor Data Heart Rate from ECG 72 NIBP 118/74 NIBP BP-Mean 88 Respiration from ECG 8 SpO2 93 I&O: 02/11/18 02/12/18 02/13/18 06:59 06:59 06:59 Intake Total 1590 1459 1553.4 Output Total 3650 1770 745 Balance -2060 -311 808.4 Result Diagrams: 02/12/18 02:03 02/12/18 02:03 Additional Labs: Accuchecks 02/12/18 02/11/18 01:24 21:42 POC Glucose 132 H 98 EKG Reviewed by me: Yes (Tele SR) Phys Exam - Physical Examination Constitutional: NAD Respiratory: no wheezing, no rhonchi Cardiovascular: RRR, no rub Gastrointestinal: soft, non-tender Musculoskeletal: no edema Neurological: moves all 4 limbs Dx/Plan - Plan DVT proph w/SCDs IMPRESSION/PLAN: 1. NSTEMI/ CAD s/p CABG Cont ASA/Statins 2. Acute hypoxic resp failure/Acute on chronic systolic HF exacerbation Not on ACEI/ARB/Aldactone/BB due to low BP 3. HTN Cont to monitor 4. CKD 2 Review of Systems - Review of Systems Respiratory: negative: Cough, Dry, Shortness of Breath, Hemoptysis, SOB with Excertion, Pleuritic Pain, Sputum, Wheezing Cardiovascular: negative: chest pain, palpitations, orthopnea, paroxysmal nocturnal dyspnea, edema, light headedness, other - Medications/Allergies Allergies/Adverse Reactions: Allergies Allergy/AdvReac Type Severity Reaction Status Date / Time Penicillins Allergy Hives Verified 02/03/18 05:21 Medications: Current Medications Acetaminophen (Tylenol) 650 mg PO Q6H PRN PRN Reason: Headache/Fever Or Mild Pain Last Admin: 10/23/18 13:15 Dose: 650 mg Hydrocodone Bitart/Acetaminophen ([place] 5/325) 1 tab PO Q4H PRN PRN Reason: Moderate Pain (4-6) Last Admin: 02/12/18 21:17 Dose: 1 tab Hydrocodone Bitart/Acetaminophen ([place] 5/325) 2 tab PO Q4H PRN PRN Reason: Severe Pain (7-10) Last Admin: 02/11/18 21:21 Dose: 2 tab Al Hydroxide/Mg Hydroxide (Maalox) 30 ml PO Q4H PRN PRN Reason: Indigestion Albuterol/Ipratropium (Duoneb) 3 ml NEB [id number] PRN PRN Reason: SHORTNESS OF BREATH Aspirin (Aspirin) 325 mg PO DAILY [facility] Last Admin: 02/12/18 09:47 Dose: 325 mg Atorvastatin Calcium (Lipitor) 40 mg PO HS ECTOR Last Admin: 02/12/18 21:18 Dose: 40 mg Bisacodyl (Dulcolax) 10 mg PO Q12H PRN PRN Reason: Constipation Bisacodyl (Dulcolax) 10 mg [place] Q12H PRN PRN Reason: Constipation Budesonide (Pulmicort Neb Solution) 0.5 mg INH BID-RT ECTOR Last Admin: 02/12/18 19:08 Dose: 0.5 mg Dextrose/Water (Dextrose 50%) 25 gm SLOW IVP PRN PRN PRN Reason: PER HYPOGLYCEMIC PROTOCOL Docusate Sodium (Colace) 100 mg PO BID ECTOR Fentanyl (Sublimaze) 25 mcg SLOW IVP Q2H PRN PRN Reason: Moderate Pain (4-6) Stop: 02/13/18 11:38 Fentanyl (Sublimaze) 50 mcg SLOW IVP Q2H PRN PRN Reason: Severe Pain (7-10) Stop: 02/13/18 11:38 Last Admin: 02/11/18 13:07 Dose: 50 mcg Glucagon (Glucagon) 1 mg SC PRN PRN PRN Reason: PER HYPOGLYCEMIC PROTOCOL Guaifenesin/Dextromethorphan (Robitussin Dm) 15 ml PO Q4H PRN PRN Reason: Cough Hydralazine HCl (Apresoline) 10 mg SLOW IVP Q6H PRN PRN Reason: To Maintain SBP< 140mmHG Norepinephrine Bitartrate (Levophed) 250 mls @ 0 mls/hr IVPB PRN PRN; Protocol PRN Reason: To maintain SBP > 90 mmHG Last Admin: 02/12/18 22:57 Dose: 250 mls Dextrose/Water (D5w) 1,000 mls @ 0 mls/hr IV INF PRN PRN Reason: PRN HYPOGLYCEMIC PROTOCOL Magnesium Sulfate 2 gm/ Device 50 mls @ 100 mls/hr IVPB QAM [facility] Stop: 02/13/18 09:29 Last Admin: 02/12/18 11:10 Dose: 50 mls Ketorolac Tromethamine (Toradol) 30 mg IVP 0200,0800,1400,2000 [facility] Stop: 02/16/18 14:01 Last Admin: 02/12/18 21:17 Dose: 30 mg Morphine Sulfate (Morphine) 2 mg SLOW IVP Q15MIN PRN PRN Reason: Severe Pain (7-10) Ondansetron HCl (Zofran) 4 mg IVP Q6H PRN PRN Reason: Nausea/Vomiting Last Admin: 02/12/18 21:18 Dose: 4 mg Polyethylene Glycol (Miralax) 17 gm PO DAILYPRN PRN PRN Reason: Constipation Potassium Chloride (Kcl) 20 meq IVPB PRN PRN PRN Reason: K level </= 4.0 Promethazine HCl (Phenergan) 6.25 mg IM Q4H PRN PRN Reason: Nausea/Vomiting Simvastatin (Zocor) 40 mg PO QPM [facility] Last Admin: 02/12/18 21:17 Dose: 40 mg Sodium Chloride (Flush - Normal Saline) 10 ml IVF PRN PRN PRN Reason: Saline Flush
[2018-02-13] MEDS: Ketorolac Tromethamine 30 MG/ML VIAL IVP SCH ×4 (01:57→20:23)
[2018-02-13 03:39] LABS: #Basophils 0.1 thou/uL (0.0-0.2); #Eosinphils 0.1 thou/uL (0.0-0.7); #Lymphocytes 1.4 thou/uL (1.20-3.40); #Monocytes 1.5 thou/uL (0.11-0.59); #Neutrophils 10.1 thou/uL (1.40-6.50); %Basophils 0.5 % (0.0-1.0); %Eosinophils 0.7 % (0.0-10.0); %Lymphocytes 10.6 % (21.0-51.0); %Monocytes 11.5 % (0.0-10.0); %Neutrophils 76.8 % (42.0-75.0); Hemoglobin 7.9 g/dL (14.0-18.0); Mean Corpuscular HGB CONC 32.2 g/dL (32.0-36.0); Mean Corpuscular Volume 99.4 fL (78.0-98.0); Mean Platelet Volume 8.8 fL (7.4-10.4); Platelet Count 143 thou/uL (130-400); RBC Distribution Width 12.4 % (11.5-14.5); Red Blood Cell (RBC) Count 2.45 mill/uL (4.70-6.10); White Blood Cell (WBC) Count 13.2 thou/uL (4.8-10.8)
[2018-02-13 03:56] LABS: Anion Gap 12 mmol/L (10-20); BUN (Urea Nitrogen) 42 mg/dL (8.4-25.7); Calc. Creatinine Clearance 26 mL/min (70-130); Calcium 8.1 mg/dL (7.8-10.44); Carbon Dioxide 21 mmol/L (23-31); Chloride 104 mmol/L (98-107); Estimated GFR-MDRD 30; Glucose 107 mg/dL (83-110); Potassium 5.5 mmol/L (3.5-5.1); Sodium 131 mmol/L (136-145)
[2018-02-13] MEDS: HYDROcodone/Acetaminophen 5/325 mg Tablet PO PRN ×2 (04:50→20:23)
[2018-02-13] MEDS: Budesonide 0.5 MG/2 ML NEB INH SCH ×2 (07:30→18:51)
[2018-02-13] MEDS: Aspirin 325 MG TAB PO SCH (08:42)
[2018-02-13] MEDS: Docusate 100 MG CAP PO SCH ×2 (08:42→20:24)
[2018-02-13] MEDS: Magnesium 2 GM/50 ML 2 GM in Premix Bag 1 BAG IVPB SCH (08:46)
--- NOTE | 2018-02-13 09:12 | RAD ---
CHEST 1 VIEW: HISTORY: Chest surgery. Followup. COMPARISON: 02/12/2018. FINDINGS: Cardiac silhouette is magnified and enlarged. Pulmonary vasculature upper limits of normal. Mediast inum midline with postoperative changes, aortic calcification, and a right subclavian central venous catheter. Linear atelectasis at the left base is again demonstrated. Atelectasis at the right base and right pleural fluid has increased. Probable gas around the left cardiac margin is likely related to pneumomediastinum from recent surgery. No significant pneumothorax. IMPRESSION: 1. Interval increase in right pleural fluid and basilar atelectasis. 2. Otherwise, stable postoperative appearance of the chest. POS: [facility]
[2018-02-13] MEDS ORDERED: Furosemide 20 MG/2 ML VIAL SLOW IVP SCH (13:15)
--- NOTE | 2018-02-13 17:24 | PDOC.PN ---
- Subjective Encounter Start Date: 02/13/18 Encounter Start Time: 09:00 Subjective: pt up in bed no complains - Objective Resuscitation Status: Resuscitation Status FULL:Full Resuscitation Vital Signs & Weight: Vital Signs (12 hours) Temp Pulse Pulse Resp BP Pulse Ox 02/13/18 16:00 98.4 F 02/13/18 12:00 98.1 F 02/13/18 11:10 98.1 F 65 14 110/71 93 L 02/13/18 07:49 98.1 F 67 19 86/56 L 93 L 02/13/18 07:33 97.9 F 64 16 84/51 L 97 02/13/18 07:30 63 18 02/13/18 07:18 92 L Weight Admit Weight 117 lb 14.4 oz Weight 128 lb 4.944 oz Most Recent Monitor Data Heart Rate from ECG 64 NIBP 103/66 NIBP BP-Mean 78 Respiration from ECG 14 SpO2 87 I&O: 02/12/18 02/13/18 02/14/18 06:59 06:59 06:59 Intake Total 1459 1955.4 450 Output Total 1770 1040 500 Balance -311 915.4 -50 Result Diagrams: 02/13/18 03:30 02/13/18 03:30 Phys Exam - Physical Examination Neck: no nodes, no JVD, supple, full ROM Respiratory: no wheezing, no rales, no rhonchi, wheezing present, clear to auscultation bilateral Cardiovascular: RRR, no significant murmur, no rub, gallop, irregular Gastrointestinal: soft, non-tender, no distention, positive bowel sounds Dx/Plan (1) Acute systolic ACC/AHA stage C congestive heart failure Code(s): I50.21 - ACUTE SYSTOLIC (CONGESTIVE) HEART FAILURE Status: Acute (2) CAD (coronary artery disease) Code(s): I25.10 - ATHSCL HEART DISEASE OF [place] CORONARY ARTERY W/O ANG PCTRS Status: Chronic Qualifiers: Coronary Disease-Associated Artery/Lesion type: [place] artery [place] vs. transplanted heart: [place] heart Associated angina: angina presence unspecified Qualified Code(s): I25.10 - Atherosclerotic heart disease of [place] coronary artery without angina pectoris (3) Moderate tricuspid regurgitation Code(s): I07.1 - RHEUMATIC TRICUSPID INSUFFICIENCY Status: Acute (4) KENNETH (acute kidney injury) Code(s): N17.9 - ACUTE KIDNEY FAILURE, UNSPECIFIED Status: Acute - Plan pt's creatinine was mildly elevated today possible prerenal -: His bp is much better today -: hh is low will monitor -: k was high will recheck bmp now * . Review of Systems - Review of Systems Respiratory: negative: Cough, Dry, Shortness of Breath, Hemoptysis, SOB with Excertion, Pleuritic Pain, Sputum, Wheezing Cardiovascular: negative: chest pain, palpitations, orthopnea, paroxysmal nocturnal dyspnea, edema, light headedness, other Gastrointestinal: negative: Nausea, Vomiting, Abdominal Pain, Diarrhea, Constipation, Melena, Hematochezia, Other Genitourinary: negative: Dysuria, Frequency, Incontinence, Hematuria, Retention , Other - Medications/Allergies Allergies/Adverse Reactions: Allergies Allergy/AdvReac Type Severity Reaction Status Date / Time Penicillins Allergy Hives Verified 02/03/18 05:21 Medications: Current Medications Acetaminophen (Tylenol) 650 mg PO Q6H PRN PRN Reason: Headache/Fever Or Mild Pain Last Admin: 02/12/18 13:15 Dose: 650 mg Hydrocodone Bitart/Acetaminophen ([place] 5/325) 1 tab PO Q4H PRN PRN Reason: Moderate Pain (4-6) Last Admin: 02/13/18 04:50 Dose: 1 tab Hydrocodone Bitart/Acetaminophen ([place] 5/325) 2 tab PO Q4H PRN PRN Reason: Severe Pain (7-10) Last Admin: 02/11/18 21:21 Dose: 2 tab Al Hydroxide/Mg Hydroxide (Maalox) 30 ml PO Q4H PRN PRN Reason: Indigestion Albuterol/Ipratropium (Duoneb) 3 ml NEB [id number] PRN PRN Reason: SHORTNESS OF BREATH Last Admin: 02/13/18 07:30 Dose: 3 ml Aspirin (Aspirin) 325 mg PO DAILY [facility] Last Admin: 02/13/18 08:42 Dose: 325 mg Atorvastatin Calcium (Lipitor) 40 mg PO HS [facility] Last Admin: 02/12/18 21:18 Dose: 40 mg Bisacodyl (Dulcolax) 10 mg PO Q12H PRN PRN Reason: Constipation Bisacodyl (Dulcolax) 10 mg [place] Q12H PRN PRN Reason: Constipation Budesonide (Pulmicort Neb Solution) 0.5 mg INH BID-RT [facility] Last Admin: 02/13/18 07:30 Dose: 0.5 mg Dextrose/Water (Dextrose 50%) 25 gm SLOW IVP PRN PRN PRN Reason: PER HYPOGLYCEMIC PROTOCOL Docusate Sodium (Colace) 100 mg PO BID [facility] Last Admin: 02/13/18 08:42 Dose: 100 mg Glucagon (Glucagon) 1 mg SC PRN PRN PRN Reason: PER HYPOGLYCEMIC PROTOCOL Guaifenesin/Dextromethorphan (Robitussin Dm) 15 ml PO Q4H PRN PRN Reason: Cough Hydralazine HCl (Apresoline) 10 mg SLOW IVP Q6H PRN PRN Reason: To Maintain SBP< 140mmHG Norepinephrine Bitartrate (Levophed) 250 mls @ 0 mls/hr IVPB PRN PRN; Protocol PRN Reason: To maintain SBP > 90 mmHG Last Admin: 02/12/18 22:57 Dose: 250 mls Dextrose/Water (D5w) 1,000 mls @ 0 mls/hr IV INF PRN PRN Reason: PRN HYPOGLYCEMIC PROTOCOL Ketorolac Tromethamine (Toradol) 30 mg IVP 0200,0800,1400,2000 [facility] Stop: 02/16/18 14:01 Last Admin: 02/13/18 13:29 Dose: 30 mg Morphine Sulfate (Morphine) 2 mg SLOW IVP Q15MIN PRN PRN Reason: Severe Pain (7-10) Ondansetron HCl (Zofran) 4 mg IVP Q6H PRN PRN Reason: Nausea/Vomiting Last Admin: 02/12/18 21:18 Dose: 4 mg Polyethylene Glycol (Miralax) 17 gm PO DAILYPRN PRN PRN Reason: Constipation Potassium Chloride (Kcl) 20 meq IVPB PRN PRN PRN Reason: K level </= 4.0 Promethazine HCl (Phenergan) 6.25 mg IM Q4H PRN PRN Reason: Nausea/Vomiting Simvastatin (Zocor) 40 mg PO QPM [facility] Last Admin: 02/12/18 21:17 Dose: 40 mg Sodium Chloride (Flush - Normal Saline) 10 ml IVF PRN PRN PRN Reason: Saline Flush
[2018-02-13 18:14] LABS: Anion Gap 9 mmol/L (10-20); BUN (Urea Nitrogen) 49 mg/dL (8.4-25.7); Calc. Creatinine Clearance 26 mL/min (70-130); Calcium 7.8 mg/dL (7.8-10.44); Carbon Dioxide 23 mmol/L (23-31); Chloride 103 mmol/L (98-107); Estimated GFR-MDRD 31; Glucose 104 mg/dL (83-110); Potassium 5.5 mmol/L (3.5-5.1); Sodium 129 mmol/L (136-145)
[2018-02-13] MEDS: Simvastatin 40 MG TAB PO SCH (20:24)
[2018-02-13] MEDS: Atorvastatin Calcium 40 MG TAB PO SCH (20:24)
[2018-02-14] MEDS: Ketorolac Tromethamine 30 MG/ML VIAL IVP SCH (03:26)
[2018-02-14 04:51] LABS: #Basophils 0.1 thou/uL (0.0-0.2); #Eosinphils 0.1 thou/uL (0.0-0.7); #Lymphocytes 1.5 thou/uL (1.20-3.40); #Monocytes 1.5 thou/uL (0.11-0.59); #Neutrophils 9.4 thou/uL (1.40-6.50); %Basophils 0.5 % (0.0-1.0); %Eosinophils 1.2 % (0.0-10.0); %Monocytes 11.9 % (0.0-10.0); %Neutrophils 74.5 % (42.0-75.0); Hemoglobin 8.8 g/dL (14.0-18.0); Mean Corpuscular HGB CONC 32.8 g/dL (32.0-36.0); Mean Corpuscular Hemoglobin 31.7 pg (27.0-31.0); Mean Corpuscular Volume 96.8 fL (78.0-98.0); Platelet Count 152 thou/uL (130-400); RBC Distribution Width 12.5 % (11.5-14.5); Red Blood Cell (RBC) Count 2.78 mill/uL (4.70-6.10); White Blood Cell (WBC) Count 12.6 thou/uL (4.8-10.8)
[2018-02-14 04:53] LABS: Anion Gap 12 mmol/L (10-20); BUN (Urea Nitrogen) 53 mg/dL (8.4-25.7); Calc. Creatinine Clearance 27 mL/min (70-130); Carbon Dioxide 21 mmol/L (23-31); Chloride 103 mmol/L (98-107); Estimated GFR-MDRD 32; Glucose 99 mg/dL (83-110); Potassium 5.3 mmol/L (3.5-5.1); Sodium 131 mmol/L (136-145)
[2018-02-14] MEDS ORDERED: Mineral Oil ENEMA PR PRN (06:38)
[2018-02-14] MEDS ORDERED: diphenhydrAMINE 25 MG CAP PO PRN (06:38)
[2018-02-14] MEDS ORDERED: Nitroglycerin 0.4 MG TAB (25 Tab Bottle) SL PRN (06:38)
[2018-02-14] MEDS ORDERED: Milk Of Magnesia 30 ML UDCUP PO PRN (06:38)
[2018-02-14] MEDS ORDERED: Zolpidem Tartrate 5 MG TAB PO PRN (06:38)
[2018-02-14] MEDS ORDERED: Artificial Tears 18 DROP/0.9 ML EA EYE PRN (06:38)
[2018-02-14] MEDS ORDERED: Guaifenesin DM 100-10/5 ML UDCUP PO PRN (06:38)
[2018-02-14] MEDS: Budesonide 0.5 MG/2 ML NEB INH SCH ×2 (07:28→18:46)
[2018-02-14] MEDS: Docusate 100 MG CAP PO SCH ×2 (08:55→21:14)
[2018-02-14] MEDS: Aspirin 325 MG TAB PO SCH (08:55)
--- NOTE | 2018-02-14 10:27 | RAD ---
PORTABLE CHEST: HISTORY: Postop open heart surgery. COMPARISON: 02/13/2018 FINDINGS: Heart size is enlarged. There are postop sternotomy changes. Pleural and parenchymal lung changes a ppear essentially stable. Right subclavian line is unchanged. IMPRESSION: Stable examination. POS: [facility]
--- NOTE | 2018-02-14 16:20 | PDOC.PN ---
- Subjective Encounter Start Date: 02/14/18 Encounter Start Time: 10:30 Subjective: pt up in chair feels well today - Objective Resuscitation Status: Resuscitation Status FULL:Full Resuscitation Vital Signs & Weight: Vital Signs (12 hours) Temp Pulse Pulse Pulse Resp BP BP 02/14/18 12:00 98.5 F 02/14/18 09:18 69 63 139/76 122/94 H 02/14/18 08:00 02/14/18 07:26 62 20 02/14/18 07:00 97.9 F Pulse Ox 02/14/18 12:00 02/14/18 09:18 02/14/18 08:00 95 02/14/18 07:26 98 02/14/18 07:00 Weight Admit Weight 117 lb 14.4 oz Weight 128 lb 4.944 oz Most Recent Monitor Data Heart Rate from ECG 66 NIBP 112/74 NIBP BP-Mean 86 Respiration from ECG 17 SpO2 92 I&O: 02/13/18 02/14/18 02/15/18 06:59 06:59 06:59 Intake Total 1955.4 1590 477 Output Total 1040 1145 259 Balance 915.4 445 218 Result Diagrams: 02/14/18 03:39 02/14/18 03:39 Additional Labs: Accuchecks 02/11/18 02/11/18 02/11/18 11:02 10:17 09:49 POC Glucose 124 H 132 H 114 H 02/11/18 02/11/18 09:05 08:14 POC Glucose 99 123 H Phys Exam - Physical Examination Neck: no nodes, no JVD, supple, full ROM Respiratory: no wheezing, no rales, no rhonchi, wheezing present, clear to auscultation bilateral Cardiovascular: RRR, no significant murmur, no rub, gallop, irregular Gastrointestinal: soft, non-tender, no distention, positive bowel sounds Musculoskeletal: no edema, pulses present, edema present Dx/Plan (1) Acute systolic ACC/AHA stage C congestive heart failure Code(s): I50.21 - ACUTE SYSTOLIC (CONGESTIVE) HEART FAILURE Status: Acute (2) CAD (coronary artery disease) Code(s): I25.10 - ATHSCL HEART DISEASE OF [place] CORONARY ARTERY W/O ANG PCTRS Status: Chronic Qualifiers: Coronary Disease-Associated Artery/Lesion type: [place] artery [place] vs. transplanted heart: [place] heart Associated angina: angina presence unspecified Qualified Code(s): I25.10 - Atherosclerotic heart disease of [place] coronary artery without angina pectoris (3) Moderate tricuspid regurgitation Code(s): I07.1 - RHEUMATIC TRICUSPID INSUFFICIENCY Status: Acute (4) KENNETH (acute kidney injury) Code(s): N17.9 - ACUTE KIDNEY FAILURE, UNSPECIFIED Status: Acute - Plan creatinine is improving slowly will monitor -: bp stable -: possible discharge in 24-48hr * . Review of Systems - Review of Systems Cardiovascular: negative: chest pain, palpitations, orthopnea, paroxysmal nocturnal dyspnea, edema, light headedness, other Gastrointestinal: negative: Nausea, Vomiting, Abdominal Pain, Diarrhea, Constipation, Melena, Hematochezia, Other Genitourinary: negative: Dysuria, Frequency, Incontinence, Hematuria, Retention , Other - Medications/Allergies Allergies/Adverse Reactions: Allergies Allergy/AdvReac Type Severity Reaction Status Date / Time Penicillins Allergy Hives Verified 02/03/18 05:21 Medications: Current Medications Acetaminophen (Tylenol) 650 mg PO Q6H PRN PRN Reason: Headache/Fever Or Mild Pain Last Admin: 02/12/18 13:15 Dose: 650 mg Hydrocodone Bitart/Acetaminophen ([place] 5/325) 1 tab PO Q4H PRN PRN Reason: Moderate Pain (4-6) Last Admin: 02/13/18 20:23 Dose: 1 tab Hydrocodone Bitart/Acetaminophen ([place] 5/325) 2 tab PO Q4H PRN PRN Reason: Severe Pain (7-10) Last Admin: 02/11/18 21:21 Dose: 2 tab Al Hydroxide/Mg Hydroxide (Maalox) 30 ml PO Q4H PRN PRN Reason: Indigestion Albuterol/Ipratropium (Duoneb) 3 ml NEB [id number] PRN PRN Reason: SHORTNESS OF BREATH Last Admin: 02/14/18 07:26 Dose: 3 ml Artificial Tears (Tears Naturale) 0 drop EA EYE PRN PRN PRN Reason: Dry Eyes Aspirin (Aspirin) 325 mg PO DAILY [facility] Last Admin: 02/14/18 08:55 Dose: 325 mg Atorvastatin Calcium (Lipitor) 40 mg PO HS [facility] Last Admin: 02/13/18 20:24 Dose: 40 mg Bisacodyl (Dulcolax) 10 mg PO Q12H PRN PRN Reason: Constipation Bisacodyl (Dulcolax) 10 mg [place] Q12H PRN PRN Reason: Constipation Budesonide (Pulmicort Neb Solution) 0.5 mg INH BID-RT [facility] Last Admin: 02/14/18 07:28 Dose: 0.5 mg Diphenhydramine HCl (Benadryl) 25 mg PO Q6H PRN PRN Reason: Itching & Insomnia or James Gerardo Docusate Sodium (Colace) 100 mg PO BID [facility] Last Admin: 02/14/18 08:55 Dose: 100 mg Guaifenesin/Dextromethorphan (Robitussin Dm) 15 ml PO Q4H PRN PRN Reason: Cough Magnesium Hydroxide (Milk Of Magnesium) 30 ml PO Q12H PRN PRN Reason: Constipation Mineral Oil (Fleet Mineral Oil) 133 ml [place] DAILYPRN PRN PRN Reason: Constipation Nitroglycerin (Nitrostat) 0.4 mg SL Q5MIN PRN PRN Reason: Chest Pain Ondansetron HCl (Zofran) 4 mg IVP Q6H PRN PRN Reason: Nausea/Vomiting Last Admin: 02/12/18 21:18 Dose: 4 mg Polyethylene Glycol (Miralax) 17 gm PO DAILYPRN PRN PRN Reason: Constipation Sodium Chloride (Flush - Normal Saline) 10 ml IVF PRN PRN PRN Reason: Saline Flush Zolpidem Tartrate (Ambien) 5 mg PO HSPRN PRN PRN Reason: Insomnia
[2018-02-14] MEDS: Atorvastatin Calcium 40 MG TAB PO SCH (21:14)
[2018-02-15 06:35] LABS: #Basophils 0.1 thou/uL (0.0-0.2); #Eosinphils 0.1 thou/uL (0.0-0.7); #Lymphocytes 1.2 thou/uL (1.20-3.40); #Monocytes 1.3 thou/uL (0.11-0.59); #Neutrophils 8.7 thou/uL (1.40-6.50); %Basophils 0.6 % (0.0-1.0); %Eosinophils 1.1 % (0.0-10.0); %Lymphocytes 10.7 % (21.0-51.0); %Monocytes 11.7 % (0.0-10.0); Hemoglobin 9.9 g/dL (14.0-18.0); Mean Corpuscular HGB CONC 32.4 g/dL (32.0-36.0); Mean Corpuscular Hemoglobin 31.2 pg (27.0-31.0); Mean Corpuscular Volume 96.4 fL (78.0-98.0); Mean Platelet Volume 9.2 fL (7.4-10.4); Platelet Count 210 thou/uL (130-400); RBC Distribution Width 12.3 % (11.5-14.5); Red Blood Cell (RBC) Count 3.16 mill/uL (4.70-6.10); White Blood Cell (WBC) Count 11.5 thou/uL (4.8-10.8)
[2018-02-15 07:01] LABS: Anion Gap 11 mmol/L (10-20); BUN (Urea Nitrogen) 46 mg/dL (8.4-25.7); Calc. Creatinine Clearance 38 mL/min (70-130); Calcium 8.2 mg/dL (7.8-10.44); Carbon Dioxide 22 mmol/L (23-31); Chloride 104 mmol/L (98-107); Estimated GFR-MDRD 48; Glucose 103 mg/dL (83-110); Potassium 5.2 mmol/L (3.5-5.1); Sodium 132 mmol/L (136-145)
[2018-02-15] MEDS: Budesonide 0.5 MG/2 ML NEB INH SCH ×2 (07:39→18:36)
[2018-02-15] MEDS: Docusate 100 MG CAP PO SCH ×2 (08:32→21:23)
[2018-02-15] MEDS: Aspirin 325 MG TAB PO SCH (08:32)
[2018-02-15 12:39] VITALS: BMI 22.5
--- NOTE | 2018-02-15 14:11 | PDOC.PN ---
- Subjective Encounter Start Date: 02/15/18 Encounter Start Time: 11:00 Subjective: pt up in bed no complains - Objective Resuscitation Status: Resuscitation Status FULL:Full Resuscitation Vital Signs & Weight: Vital Signs (12 hours) Temp Pulse Resp BP BP Pulse Ox 02/15/18 11:20 62 16 107/58 L 02/15/18 07:39 62 20 92 L 02/15/18 07:12 98.2 F 63 14 132/67 02/15/18 03:54 97.9 F 62 129/74 94 L Weight Admit Weight 117 lb 14.4 oz Weight 127 lb 6.4 oz Most Recent Monitor Data Heart Rate from ECG 66 NIBP 112/74 NIBP BP-Mean 86 Respiration from ECG 17 SpO2 92 I&O: 02/14/18 02/15/18 02/16/18 06:59 06:59 06:59 Intake Total 1590 1117 Output Total 1145 1134 Balance 445 -17 Result Diagrams: 02/15/18 05:43 02/15/18 05:43 Phys Exam - Physical Examination Neck: no nodes, no JVD, supple, full ROM Respiratory: no wheezing, no rales, no rhonchi, wheezing present, clear to auscultation bilateral Cardiovascular: RRR, no significant murmur, no rub, gallop, irregular Gastrointestinal: soft, non-tender, no distention, positive bowel sounds Musculoskeletal: no edema, pulses present, edema present Dx/Plan (1) Acute systolic ACC/AHA stage C congestive heart failure Code(s): I50.21 - ACUTE SYSTOLIC (CONGESTIVE) HEART FAILURE Status: Acute (2) CAD (coronary artery disease) Code(s): I25.10 - ATHSCL HEART DISEASE OF [place] CORONARY ARTERY W/O ANG PCTRS Status: Chronic Qualifiers: Coronary Disease-Associated Artery/Lesion type: [place] artery [place] vs. transplanted heart: [place] heart Associated angina: angina presence unspecified Qualified Code(s): I25.10 - Atherosclerotic heart disease of [place] coronary artery without angina pectoris (3) Moderate tricuspid regurgitation Code(s): I07.1 - RHEUMATIC TRICUSPID INSUFFICIENCY Status: Acute (4) KENNETH (acute kidney injury) Code(s): N17.9 - ACUTE KIDNEY FAILURE, UNSPECIFIED Status: Acute - Plan pt's creatinine is improving -: mild elevated K will monitor -: pt doing well possible discharge when ok with surgery * . Review of Systems - Review of Systems Respiratory: negative: Cough, Dry, Shortness of Breath, Hemoptysis, SOB with Excertion, Pleuritic Pain, Sputum, Wheezing Cardiovascular: negative: chest pain, palpitations, orthopnea, paroxysmal nocturnal dyspnea, edema, light headedness, other Gastrointestinal: negative: Nausea, Vomiting, Abdominal Pain, Diarrhea, Constipation, Melena, Hematochezia, Other Genitourinary: negative: Dysuria, Frequency, Incontinence, Hematuria, Retention , Other - Medications/Allergies Allergies/Adverse Reactions: Allergies Allergy/AdvReac Type Severity Reaction Status Date / Time Penicillins Allergy Hives Verified 02/03/18 05:21 Medications: Current Medications Acetaminophen (Tylenol) 650 mg PO Q6H PRN PRN Reason: Headache/Fever Or Mild Pain Last Admin: 02/12/18 13:15 Dose: 650 mg Hydrocodone Bitart/Acetaminophen ([place] 5/325) 1 tab PO Q4H PRN PRN Reason: Moderate Pain (4-6) Last Admin: 02/13/18 20:23 Dose: 1 tab Hydrocodone Bitart/Acetaminophen ([place] 5/325) 2 tab PO Q4H PRN PRN Reason: Severe Pain (7-10) Last Admin: 02/11/18 21:21 Dose: 2 tab Al Hydroxide/Mg Hydroxide (Maalox) 30 ml PO Q4H PRN PRN Reason: Indigestion Albuterol/Ipratropium (Duoneb) 3 ml NEB [id number] PRN PRN Reason: SHORTNESS OF BREATH Last Admin: 02/14/18 07:26 Dose: 3 ml Artificial Tears (Tears Naturale) 0 drop EA EYE PRN PRN PRN Reason: Dry Eyes Aspirin (Aspirin) 325 mg PO DAILY [facility] Last Admin: 02/15/18 08:32 Dose: 325 mg Atorvastatin Calcium (Lipitor) 40 mg PO HS [facility] Last Admin: 02/14/18 21:14 Dose: 40 mg Bisacodyl (Dulcolax) 10 mg PO Q12H PRN PRN Reason: Constipation Bisacodyl (Dulcolax) 10 mg [place] Q12H PRN PRN Reason: Constipation Budesonide (Pulmicort Neb Solution) 0.5 mg INH BID-RT [facility] Last Admin: 02/15/18 07:39 Dose: 0.5 mg Diphenhydramine HCl (Benadryl) 25 mg PO Q6H PRN PRN Reason: Itching & Insomnia or James Gerardo Docusate Sodium (Colace) 100 mg PO BID [facility] Last Admin: 02/15/18 08:32 Dose: 100 mg Guaifenesin/Dextromethorphan (Robitussin Dm) 15 ml PO Q4H PRN PRN Reason: Cough Magnesium Hydroxide (Milk Of Magnesium) 30 ml PO Q12H PRN PRN Reason: Constipation Mineral Oil (Fleet Mineral Oil) 133 ml [place] DAILYPRN PRN PRN Reason: Constipation Nitroglycerin (Nitrostat) 0.4 mg SL Q5MIN PRN PRN Reason: Chest Pain Ondansetron HCl (Zofran) 4 mg IVP Q6H PRN PRN Reason: Nausea/Vomiting Last Admin: 02/12/18 21:18 Dose: 4 mg Polyethylene Glycol (Miralax) 17 gm PO DAILYPRN PRN PRN Reason: Constipation Sodium Chloride (Flush - Normal Saline) 10 ml IVF PRN PRN PRN Reason: Saline Flush Last Admin: 02/15/18 08:32 Dose: 10 ml Zolpidem Tartrate (Ambien) 5 mg PO HSPRN PRN PRN Reason: Insomnia
[2018-02-15] MEDS: HYDROcodone/Acetaminophen 5/325 mg Tablet PO PRN (16:56)
[2018-02-15] MEDS: Atorvastatin Calcium 40 MG TAB PO SCH (21:22)
[2018-02-16] MEDS: HYDROcodone/Acetaminophen 5/325 mg Tablet PO PRN ×3 (00:38→16:14)
[2018-02-16 06:46] LABS: Anion Gap 13 mmol/L (10-20); BUN (Urea Nitrogen) 36 mg/dL (8.4-25.7); Calc. Creatinine Clearance 47 mL/min (70-130); Calcium 8.3 mg/dL (7.8-10.44); Carbon Dioxide 21 mmol/L (23-31); Chloride 103 mmol/L (98-107); Estimated GFR-MDRD 62; Glucose 93 mg/dL (83-110); Potassium 4.7 mmol/L (3.5-5.1); Sodium 132 mmol/L (136-145)
[2018-02-16] MEDS: Budesonide 0.5 MG/2 ML NEB INH SCH (06:59)
[2018-02-16 07:25] LABS: #Eosinphils 0.1 thou/uL (0.0-0.7); #Lymphocytes 1.6 thou/uL (1.20-3.40); #Monocytes 1.7 thou/uL (0.11-0.59); #Neutrophils 8.7 thou/uL (1.40-6.50); %Basophils 0.3 % (0.0-1.0); %Eosinophils 1.2 % (0.0-10.0); %Monocytes 13.9 % (0.0-10.0); %Neutrophils 71.6 % (42.0-75.0); Hemoglobin 10.4 g/dL (14.0-18.0); Mean Corpuscular Volume 96.9 fL (78.0-98.0); Mean Platelet Volume 9.1 fL (7.4-10.4); Platelet Count 250 thou/uL (130-400); RBC Distribution Width 12.7 % (11.5-14.5); Red Blood Cell (RBC) Count 3.23 mill/uL (4.70-6.10); White Blood Cell (WBC) Count 12.2 thou/uL (4.8-10.8)
[2018-02-16] MEDS: Aspirin 325 MG TAB PO SCH (09:50)
[2018-02-16] MEDS: Docusate 100 MG CAP PO SCH (09:51)
[2018-02-16 16:12] VITALS: BP 126/88; TEMP 97.8
--- NOTE | 2018-02-16 16:26 | PDOC.PN ---
- Subjective Encounter Start Date: 02/16/18 Encounter Start Time: 11:15 Subjective: pt up in bed no complains - Objective Resuscitation Status: Resuscitation Status FULL:Full Resuscitation Vital Signs & Weight: Vital Signs (12 hours) Temp Pulse Pulse Pulse Resp BP BP 02/16/18 12:55 97.8 F 72 18 02/16/18 12:34 64 61 121/65 120/63 02/16/18 08:15 97.7 F 64 18 02/16/18 07:04 02/16/18 06:59 59 L 20 BP Pulse Ox Pulse Ox Pulse Ox 02/16/18 12:55 126/88 96 02/16/18 12:34 100 99 02/16/18 08:15 120/63 99 02/16/18 07:04 93 L 02/16/18 06:59 93 L Weight Admit Weight 117 lb 14.4 oz Weight 125 lb 11.2 oz Most Recent Monitor Data Heart Rate from ECG 66 NIBP 112/74 NIBP BP-Mean 86 Respiration from ECG 17 SpO2 92 I&O: 02/15/18 02/16/18 02/17/18 06:59 06:59 06:59 Intake Total 1117 1080 Output Total 1134 950 Balance -17 130 Result Diagrams: 02/16/18 05:16 02/16/18 05:16 Phys Exam - Physical Examination Respiratory: no wheezing, no rales, no rhonchi, wheezing present, clear to auscultation bilateral Cardiovascular: RRR, no significant murmur, no rub, gallop, irregular Gastrointestinal: soft, non-tender, no distention, positive bowel sounds Musculoskeletal: no edema, pulses present, edema present Dx/Plan (1) Acute systolic ACC/AHA stage C congestive heart failure Code(s): I50.21 - ACUTE SYSTOLIC (CONGESTIVE) HEART FAILURE Status: Acute (2) CAD (coronary artery disease) Code(s): I25.10 - ATHSCL HEART DISEASE OF [place] CORONARY ARTERY W/O ANG PCTRS Status: Chronic Qualifiers: Coronary Disease-Associated Artery/Lesion type: [place] artery [place] vs. transplanted heart: [place] heart Associated angina: angina presence unspecified Qualified Code(s): I25.10 - Atherosclerotic heart disease of [place] coronary artery without angina pectoris (3) Moderate tricuspid regurgitation Code(s): I07.1 - RHEUMATIC TRICUSPID INSUFFICIENCY Status: Acute (4) KENNETH (acute kidney injury) Code(s): N17.9 - ACUTE KIDNEY FAILURE, UNSPECIFIED Status: Acute - Plan will discharge when ok with cardiology -: pt waiting on lifevest * . Review of Systems - Review of Systems Respiratory: negative: Cough, Dry, Shortness of Breath, Hemoptysis, SOB with Excertion, Pleuritic Pain, Sputum, Wheezing Cardiovascular: negative: chest pain, palpitations, orthopnea, paroxysmal nocturnal dyspnea, edema, light headedness, other Gastrointestinal: negative: Nausea, Vomiting, Abdominal Pain, Diarrhea, Constipation, Melena, Hematochezia, Other - Medications/Allergies Allergies/Adverse Reactions: Allergies Allergy/AdvReac Type Severity Reaction Status Date / Time Penicillins Allergy Hives Verified 02/03/18 05:21 Medications: Current Medications Acetaminophen (Tylenol) 650 mg PO Q6H PRN PRN Reason: Headache/Fever Or Mild Pain Last Admin: 02/12/18 13:15 Dose: 650 mg Hydrocodone Bitart/Acetaminophen ([place] 5/325) 1 tab PO Q4H PRN PRN Reason: Moderate Pain (4-6) Last Admin: 02/16/18 09:50 Dose: 1 tab Hydrocodone Bitart/Acetaminophen ([place] 5/325) 2 tab PO Q4H PRN PRN Reason: Severe Pain (7-10) Last Admin: 02/16/18 16:14 Dose: 2 tab Al Hydroxide/Mg Hydroxide (Maalox) 30 ml PO Q4H PRN PRN Reason: Indigestion Albuterol/Ipratropium (Duoneb) 3 ml NEB [id number] PRN PRN Reason: SHORTNESS OF BREATH Last Admin: 02/14/18 07:26 Dose: 3 ml Artificial Tears (Tears Naturale) 0 drop EA EYE PRN PRN PRN Reason: Dry Eyes Aspirin (Aspirin) 325 mg PO DAILY [facility] Last Admin: 02/16/18 09:50 Dose: 325 mg Atorvastatin Calcium (Lipitor) 40 mg PO HS [facility] Last Admin: 02/15/18 21:22 Dose: 40 mg Bisacodyl (Dulcolax) 10 mg PO Q12H PRN PRN Reason: Constipation Bisacodyl (Dulcolax) 10 mg [place] Q12H PRN PRN Reason: Constipation Budesonide (Pulmicort Neb Solution) 0.5 mg INH BID-RT [facility] Last Admin: 02/16/18 06:59 Dose: 0.5 mg Diphenhydramine HCl (Benadryl) 25 mg PO Q6H PRN PRN Reason: Itching & Insomnia or James Gerardo Docusate Sodium (Colace) 100 mg PO BID [facility] Last Admin: 02/16/18 09:51 Dose: Not Given Guaifenesin/Dextromethorphan (Robitussin Dm) 15 ml PO Q4H PRN PRN Reason: Cough Magnesium Hydroxide (Milk Of Magnesium) 30 ml PO Q12H PRN PRN Reason: Constipation Mineral Oil (Fleet Mineral Oil) 133 ml [place] DAILYPRN PRN PRN Reason: Constipation Nitroglycerin (Nitrostat) 0.4 mg SL Q5MIN PRN PRN Reason: Chest Pain Ondansetron HCl (Zofran) 4 mg IVP Q6H PRN PRN Reason: Nausea/Vomiting Last Admin: 02/12/18 21:18 Dose: 4 mg Polyethylene Glycol (Miralax) 17 gm PO DAILYPRN PRN PRN Reason: Constipation Sodium Chloride (Flush - Normal Saline) 10 ml IVF PRN PRN PRN Reason: Saline Flush Last Admin: 02/15/18 21:24 Dose: 10 ml Zolpidem Tartrate (Ambien) 5 mg PO HSPRN PRN PRN Reason: Insomnia
--- NOTE | 2018-02-16 17:52 | DIS ---
DATE OF ADMISSION: 02/02/2018 DATE OF DSICHARGE: 02/16/2018 DIAGNOSES: 1. Recurrent coronary artery disease. 2. Tobacco abuse. 3. Medical noncompliance. 4. Hypertension. 5. Chronic obstructive pulmonary disease. PROCEDURES: 1. Cardiac catheterization. 2. Redo coronary bypass grafting x3 - left reverse saphenous vein to LAD, PDA, OM. DESCRIPTION OF HOSPITAL STAY: Mr. Muse presented through the emergency department with recurrent 2 weeks of chest pain. He has been in the hospital recently with congestive failure symptoms and had r ecommendation made that he have a LifeVest and defibrillator, but he was unwilling to consent. He lassiter s been continued to smoke up until time of admission to the hospital. He has been noncompliant with any medicines at home. He underwent cardiac catheterization revealing an occluded OM. The mammary t o LAD is patent with a stenosis just distal to the anastomosis. His right coronary graft has severe stenosis. He was taken for redo bypass after being off Plavix for a week on 02/11/2018. He has done remarkably well postoperatively. He has had no rhythm disturbances. At the time of discharge, he i s ambulatory, tolerating a regular diet, having good bowel and bladder function. Incisions clean and dry without signs of infection. DISCHARGE MEDICATIONS: 1. Aspirin 325 mg daily. 2. Lipitor 40 mg at bedtime. 3. [place] 5/325 1-2 q.4. p.r.n. pain. 4. Two different inhalers that he has taken at home. FOLLOWUP: With in 2 weeks, Dr. Bettecnourt in a month.
--- NOTE | 2018-02-17 17:24 | DIS ---
DATE OF ADMISSION: 02/02/2018 DATE OF ADMISSION: 02/16/[address] Rolle's discharge summary for more details. DISCHARGE DIAGNOSES: 1. Recurrent CAD. 2. Tobacco abuse. 3. Medical noncompliance. 4. Hypertension. 5. COPD. HOSPITAL COURSE: The patient is a very pleasant 73-year-old male who presented to the hospital with chest pain. He had a history of bypass in the past. He at this time was seen by Cardiology and juan alberto cated for possible redo bypass. Patient was seen by Cardiothoracic Surgery and underwent a redo josé miguel nary artery bypass grafting x3. Please refer to the discharge summary for further details. The jack ent will be discharged home on aspirin 325 mg daily, Lipitor 20 mg daily, [place] 5/325 one to two q.4 hours p.r.n., also patient will be also discharged home with budesonide, Pulmicort 0.5 b.i.d. Joel carson will follow up with the Cardiology and CV Surgery as outpatient.
== END 2018-02-16 20:01 | disposition home or self-care (01) | DRG 233 ==
LOC: ERS 13:51 → 2NO 17:48 → CCU 02-11 07:47 → 2NO 02-14 15:50
PROVIDERS: ADMIT Internal Medicine; ATTEND Internal Medicine
PROC: 4A023N7 Measurement of Cardiac Sampling and Pressure, Left Heart, Percutaneous Approach (ICD-10-PCS; 2018-02-04)
PROC: B2111ZZ Fluoroscopy of Multiple Coronary Arteries using Low Osmolar Contrast (ICD-10-PCS; 2018-02-04)
PROC: B2151ZZ Fluoroscopy of Left Heart using Low Osmolar Contrast (ICD-10-PCS; 2018-02-04)
PROC: 0212093 Bypass Coronary Artery, Three Arteries from Coronary Artery with Autologous Venous Tissue, Open Approach (ICD-10-PCS; principal; 2018-02-11)
DX: I21.4 Non-ST elevation (NSTEMI) myocardial infarction (principal); J96.01 Acute respiratory failure with hypoxia; I50.23 Acute on chronic systolic (congestive) heart failure; N17.9 Acute kidney failure, unspecified; I13.0 Hypertensive heart and chronic kidney disease with heart failure and stage 1 through stage 4 chronic kidney disease, or unspecified chronic kidney disease; N18.2 Chronic kidney disease, stage 2 (mild); F10.10 Alcohol abuse, uncomplicated; I25.5 Ischemic cardiomyopathy; I25.10 Atherosclerotic heart disease of native coronary artery without angina pectoris; Z95.1 Presence of aortocoronary bypass graft; I08.1 Rheumatic disorders of both mitral and tricuspid valves; Z88.0 Allergy status to penicillin; E78.5 Hyperlipidemia, unspecified; Z91.14 Patient's other noncompliance with medication regimen; Z87.891 Personal history of nicotine dependence; Z71.41 Alcohol abuse counseling and surveillance of alcoholic
CPT/HCPCS: 36415; 36416; 36430; 71045; 76942; 80048; 80053; 82805; 82947; 83735; 83880; 84484; 85014; 85018; 85025; 85049; 85379; 85610; 85730; 86850; 86900; 86901; 93005; 93010; 93306; 93455; 93798; 93880; 94002; 94150; 94640; 94664; 94760; 96365; 96375; 99152; C1769; J1642; J1644; J1650; J1815; J1885; J1940; J1956; J2001; J2150; J2250; J2260; J2270; J2370; J2405; J2440; J2720; J3010; J3370; J3475; J3480; J3490; J7050; J7620; J7626; P9016; P9045; S0017; S0028

== ENCOUNTER 2018-04-03 22:46 | Inpatient (IN) | payer MEDICARE, MEDICAID ==
[2018-04-03 23:35] LABS: #Basophils 0.1 thou/uL (0.0-0.2); #Eosinphils 0.7 thou/uL (0.0-0.7); #Lymphocytes 2.1 thou/uL (1.20-3.40); #Monocytes 0.8 thou/uL (0.11-0.59); #Neutrophils 5.2 thou/uL (1.40-6.50); %Eosinophils 8.3 % (0.0-10.0); %Lymphocytes 23.4 % (21.0-51.0); %Monocytes 8.8 % (0.0-10.0); %Neutrophils 58.6 % (42.0-75.0); Mean Corpuscular HGB CONC 32.8 g/dL (32.0-36.0); Mean Corpuscular Volume 97.5 fL (78.0-98.0); Mean Platelet Volume 7.8 fL (7.4-10.4); Platelet Count 266 thou/uL (130-400); RBC Distribution Width 13.1 % (11.5-14.5); Red Blood Cell (RBC) Count 3.76 mill/uL (4.70-6.10); White Blood Cell (WBC) Count 8.8 thou/uL (4.8-10.8)
--- NOTE | 2018-04-03 23:44 | RAD ---
CHEST ONE VIEW PORTABLE: 04/03/18 HISTORY: 73-year-old male with chest pain, dyspnea, history of COPD and congestive heart failure. COMPARISON: 02/14/18. FINDINGS: Postop midline sternotomy. Cardiomegaly with bilateral vascular congestion and probable interstitial edema and pleural effusions with concern for associated congestive heart failure. IMPRESSION: Cardiomegaly with vascular congestion, interstitial edema and pleural effusions with concern for asso ciated congestive heart failure. POS: LONNIE
[2018-04-03] MEDS ORDERED: Water For Inject, Bacteriostat 30 ML ONE (23:56)
[2018-04-03] MEDS ORDERED: methylPREDNISolone Sod Succ/PF 125 MG/2 ML VIAL ONE (23:56)
[2018-04-03 23:58] LABS: ALT (SGPT) 16 U/L (8-55); AST (SGOT) 19 U/L (5-34); Albumin 3.7 g/dL (3.4-4.8); Alkaline Phosphatase 94 U/L (40-150); Anion Gap 15 mmol/L (10-20); BUN (Urea Nitrogen) 13 mg/dL (8.4-25.7); Bilirubin, Total 0.8 mg/dL (0.2-1.2); CK (CPK) 93 U/L (30-200); Calc. Creatinine Clearance 0 mL/min (70-130); Carbon Dioxide 20 mmol/L (23-31); Chloride 108 mmol/L (98-107); Estimated GFR-MDRD 75; Globulin 3.1 g/dL (2.4-3.5); Glucose 88 mg/dL (83-110); Potassium 4.2 mmol/L (3.5-5.1); Protein, Total 6.8 g/dL (5.8-8.1); Sodium 139 mmol/L (136-145)
[2018-04-04 00:20] LABS: CKMB 3.2 ng/mL (0-6.6)
[2018-04-04] MEDS ORDERED: Furosemide 40 MG/4 ML VIAL ONE (00:35)
[2018-04-04] MEDS ORDERED: Nitroglycerin 0.4 MG TAB (25 Tab Bottle) ONE (00:53)
[2018-04-04] MEDS ORDERED: Enoxaparin Sodium 60 MG/0.6 ML SYRINGE ONE (01:29)
[2018-04-04] MEDS ORDERED: Acetaminophen 325 MG TAB PO PRN (01:34)
[2018-04-04] MEDS ORDERED: Ondansetron PF 4 MG/2 ML Vial IVP PRN (01:34)
[2018-04-04] MEDS ORDERED: HYDROcodone/Acetaminophen 5/325 mg Tablet PO PRN ×2 (01:34→01:41)
[2018-04-04] MEDS ORDERED: Ondansetron ODT 4 MG TAB PO PRN (01:34)
[2018-04-04] MEDS ORDERED: PROVENTIL INHALER 6.7 G (200 INHALATIONS) INH PRN (01:41)
[2018-04-04 03:19] LABS: #Basophils 0.1 thou/uL (0.0-0.2); #Eosinphils 0.2 thou/uL (0.0-0.7); #Monocytes 0.2 thou/uL (0.11-0.59); #Neutrophils 6.5 thou/uL (1.40-6.50); %Eosinophils 2.6 % (0.0-10.0); %Lymphocytes 12.4 % (21.0-51.0); %Monocytes 2.4 % (0.0-10.0); %Neutrophils 81.6 % (42.0-75.0); Hemoglobin 12.4 g/dL (14.0-18.0); Mean Corpuscular HGB CONC 33.2 g/dL (32.0-36.0); Mean Corpuscular Hemoglobin 32.1 pg (27.0-31.0); Mean Corpuscular Volume 96.9 fL (78.0-98.0); Mean Platelet Volume 7.6 fL (7.4-10.4); Platelet Count 277 thou/uL (130-400); Red Blood Cell (RBC) Count 3.85 mill/uL (4.70-6.10)
[2018-04-04 03:42] LABS: ALT (SGPT) 17 U/L (8-55); AST (SGOT) 18 U/L (5-34); Albumin 3.7 g/dL (3.4-4.8); Alkaline Phosphatase 95 U/L (40-150); Anion Gap 15 mmol/L (10-20); BUN (Urea Nitrogen) 12 mg/dL (8.4-25.7); Bilirubin, Total 0.9 mg/dL (0.2-1.2); Calc. Creatinine Clearance 0 mL/min (70-130); Carbon Dioxide 22 mmol/L (23-31); Chloride 107 mmol/L (98-107); Estimated GFR-MDRD 79; Globulin 3.2 g/dL (2.4-3.5); Glucose 123 mg/dL (83-110); Magnesium 1.9 mg/dL (1.6-2.6); Potassium 3.7 mmol/L (3.5-5.1); Protein, Total 6.9 g/dL (5.8-8.1); Sodium 140 mmol/L (136-145)
[2018-04-04 03:46] LABS: Troponin I 0.205 ng/mL (< 0.028)
[2018-04-04 03:54] VITALS: BMI 20.5
[2018-04-04 06:36] LABS: Troponin I 0.189 ng/mL (< 0.028)
[2018-04-04] MEDS: Mometasone/Formoterol 120 PUFF INHALER INH SCH ×2 (07:17→18:18)
[2018-04-04] MEDS: Famotidine 20 MG TAB PO SCH ×2 (08:43→21:08)
[2018-04-04] MEDS: Aspirin 325 mg Enteric Coated Tablet PO SCH (08:43)
[2018-04-04] MEDS: Famotidine/PF 20 mg/2ml Vial SLOW IVP SCH ×2 (08:46→21:08)
[2018-04-04] MEDS: Enoxaparin Sodium 40 MG/0.4 ML SYRINGE SC SCH (13:05)
[2018-04-04] MEDS ORDERED: Albuterol Sulfate 2.5 mg/3 ml Neb NEB PRN (13:53)
[2018-04-04] MEDS ORDERED: Furosemide 40 MG/4 ML VIAL SLOW IVP SCH (14:00)
[2018-04-04] MEDS ORDERED: Colchicine 0.6 MG TAB PO SCH (17:45)
[2018-04-04] MEDS ORDERED: Colchicine 0.3 MG TAB PO SCH (17:53)
[2018-04-04] MEDS ORDERED: Atorvastatin Calcium 40 MG TAB PO SCH (21:00)
--- NOTE | 2018-04-04 21:04 | HP ---
CHIEF COMPLAINT: Shortness of breath. HISTORY OF PRESENT ILLNESS: The patient is a 73-year-old male who recently was discharged from the hospital on February 17 after having a redo for recurring CAD due to chest pain and a redo of his bypass that was done by Cardiology. The patient stated that he has some cough, however, nonproductive, had some sputum, however, nothing significant compared to his baseline. The patient stated that yesterday he started having significant shortness of breath and he tried to do neb treatments at home, however, did not feel well, so he came in to the hospital for further evaluation. The patient states that he has stopped smoking and drinking and has kept it that way. The patient states he has been compliant with his medications ; however, his medications did run out for the past 2 or 3 days. The patient stated that "I was only given a month's supply." I did educate the patient at that time that he needs to follow up with his primary care doctor, which he did and also asked him that he needs to request refills on his home medications. The patient states that he was supposed to be on Lasix, however, the Lasix was discontinued 3 or 4 days after he was discharged from the hospital. The patient stated that he has been drinking a lot of water. The patient also states that he has been eating. He tries to avoid salt. However, after when I asked him to describe what meals he was eating, the patient states that he eats at least 2 meals out of a 3 meals at [employer]. The patient denies any chest pressure or chest tightness. PAST MEDICAL HISTORY: 1. Coronary artery disease. 2. Systolic heart failure, EF of 20% to 25%. 3. COPD. 4. Moderate tricuspid and mitral regurgitation. 5. Former smoker. 6. History of alcohol abuse. PAST SURGICAL HISTORY: He has had a bypass graft 4 years ago and had a redo done recently in January. ALLERGIES: HE IS ALLERGIC TO PENICILLIN. HOME MEDICATIONS: The patient states that he does not recall his home medications. However, per documentation, his home medications are as of the following. The patient takes: 1. Aspirin 325 daily. 2. [place] 5-325 q.4 hours p.r.n. 3. Lipitor 40 mg daily. 4. Two inhalers at home. SOCIAL HISTORY: The patient quit smoking in January and does not drink any alcohol either. Denies any drug use. He actually has been living with the family. He wants to be DNR. Makes his own decisions. FAMILY HISTORY: He denies any history of premature coronary artery disease. REVIEW OF SYSTEMS: All negative except for the ones mentioned above in the HPI. PHYSICAL EXAMINATION: VITAL SIGNS: Vital signs are as of the following; temperature of 98.7, 86 heart rate, respiratory rate 16, and 100% on room air, blood pressure 142/82. GENERAL: He is awake, alert, and oriented x3, does not appear to be in any distress. CVS: S1, S2 present. No murmurs, rubs, or gallops. LUNGS: Clear to auscultation. No rhonchi or wheeze noted. ABDOMEN: Soft, nontender. Bowel sounds are present x2. EXTREMITIES: No edema. Pedal pulses are present x2. DIAGNOSTIC DATA: He did have an x-ray in the ER, which did indicate he did have significant vascular congestion and some pleural effusion. LABORATORY DATA: His proBNP was significantly elevated at 2894. Sodium was 140 , potassium of 3.7, BUN of 12, creatinine 0.94. His troponins were initially 0.246 and then was 0.205. His TSH is 1.7068. ASSESSMENT AND PLAN: The patient is a very pleasant 73-year-old male who presents to the hospital with shortness of breath. 1. Shortness of breath most likely secondary to heart failure, acute on chronic systolic heart failure versus chronic obstructive pulmonary disease exacerbation. The patient states that he has been eating at [employer] twice a day. When I told him that [employer] contained a lot of salt, he was surprised and thought that that was the best meal ever. He is very offended that I had such bad things to say about [employer]. However, I do not think I was doing or trying to educate him that Pulm[employer]es is not good for him in terms of his salt intake, especially given his 2 bypasses and also his heart failure disease. We will continue to educate him in terms of healthy eating habits. We will also start the patient on Lasix. We will continue the Lasix. Cardiology has been consulted for this patient. We will continue his home medications. will start him on some coreg, EMERITA and will continue his lasix for now. 2. We will also continue some DuoNeb if needed. However, I do not hear any wheezing on his exam, unlikely to be chronic obstructive pulmonary disease exacerbation. All his markers, especially with the elevated BNP with chest x-ray indicating a significant flash pulmonary edema and also with his shortness of breath, most likely this is a heart failure exacerbation. 3. Coronary artery disease. We will continue his home medications. 4. Chronic obstructive pulmonary disease. We will continue his home medications. 5. Deep venous thrombosis prophylaxis. We will put the patient on subcu heparin. Job ID: [id number] [facility]
--- NOTE | 2018-04-05 00:26 | CON ---
DATE OF CONSULTATION: 04/04/2018 HISTORY: Yobani Muse Jr., is a 73-year-old white male with history of CABG x2 in [place] 4 or 5 years ago. He stated that when he left the hospital, he threw all his medications away and did not any taking medications after that, even aspirin. He also went back to smoking 1 to 2 packs per day and drinking a 6-pack of beer per day. He states he was admitted in July 2017 with increased cough and shortness of breath. Blood pressure on presentation was 181/115 and he had significant wheezing. Echocardiogram revealed ejection fraction of 20% to 25% with moderate mitral regurgitation, aortic valvular sclerosis, mild aortic regurgitation, [id number] tricuspid regurgitation, and moderate pulmonic regurgitation. BNP was 3294. Cardiac enzymes were unremarkable. It was recommended that he have a LifeVest placed; however, he refused that. He was discharged on carvedilol 3.125 b.i.d., Lasix 40 daily, lisinopril 5 mg b.i.d., prednisone for 5 days, and Aldactone 25 mg daily. He then presented again in January 2018 and I was on vacation at that time. He was seen and cared for by Dr. Bettencourt. He has not been taking any of his medications, stating that he could not afford, although he continues to smoke one pack per day. During that admission, his troponin went to 11.638. He then underwent cardiac catheterization by Dr. Bettencourt. This revealed severe 3-vessel coronary artery disease with severe disease in the right coronary graft. Specifically, there was total occlusion of the proximal LAD, 95% stenosis in the mid LAD, 95% proximal circumflex stenosis, which was heavily calcified. The right coronary artery is totally occluded in its midportion. The graft to the distal right coronary artery had an 80% stenosis and was diffusely diseased. The HAMILTON attached to the distal LAD and was free of significant disease; however, there was some disease distal to the HAMILTON insertion. He then underwent redo CABG x3 on February 11, 2018, after Plavix had been discontinued. Saphenous veins were placed to the LAD at the apex to the obtuse marginal and to the right posterior descending. Saphenous vein graft to the right PDA was anastomosed onto the obtuse marginal graft. Saphenous vein graft to the LAD distally was anastomosed to the side wall of the obtuse marginal graft. Postoperatively, he had fairly unremarkable course. He was discharged on aspirin and Lipitor 40 mg daily and inhalers. He now presents complaining of a different type of chest pain than he had prior to bypass surgery. He states this is more of a sharp pain and located somewhat higher in his chest. It is definitely pleuritic in nature and has been present for the last 2 or 3 days. He has noted that the pain is much worse if he is supine in bed and better if he is sitting upright. He denies any fever or diaphoresis with this. He has had indeterminate troponin Is. PAST MEDICAL HISTORY: Coronary artery disease and hypercholesterolemia. He denies any history of diabetes or hypertension. MEDICATIONS: Currently, 1. Atorvastatin 40 daily. 2. Aspirin 81 daily. 3. Ventolin inhalers. 4. Albuterol nebs. ALLERGIES: PENICILLIN. PAST SURGICAL HISTORY: Two bypass surgeries. SOCIAL HISTORY: He smoked 1 to 2 packs per day, but cut down to one pack per day prior to bypass surgery. He states he does not smoke and has not had anything to drink since bypass surgery. He did drink a 6-pack of beer per day prior to that. FAMILY HISTORY: Unknown. REVIEW OF SYSTEMS: A 10-point review of systems is otherwise unremarkable. PHYSICAL EXAMINATION: VITAL SIGNS: Blood pressure 130/76 and pulse 86. HEENT: PERRL. NECK: Supple. CHEST: Clear. CARDIAC: S1 and S2 normal without any S3, S4, murmurs or rubs. ABDOMEN: Normal bowel sounds without tenderness or organomegaly. EXTREMITIES: No clubbing, cyanosis or edema. NEUROLOGIC: Grossly intact. SKIN: Warm and dry. LABORATORY DATA: EKG reveals normal sinus rhythm with anterolateral T-wave changes. Troponin I is 0.246. BNP 2894. CK-MB was normal. Sodium 140, potassium 3.7, chloride 107, carbon dioxide 22, BUN 12, creatinine 0.94, and glucose 123. TSH is normal. IMPRESSION: 1. History most consistent with postpericardiotomy syndrome, although he is somewhat far removed from bypass surgery approximately 5 to 6 weeks. His pain is definitely pleuritic in nature and is worse with lying supine. 2. Status post redo coronary artery bypass graft x3 in January 2018. 3. Initial coronary artery bypass graft x2, 4 or 5 years ago. 4. Hypercholesterolemia. 5. Former smoker. 6. Former EtOH abuse. 7. History of noncompliance with medications. 8. Severe ischemic cardiomyopathy preoperatively. PLAN: Mr. Muse wishes to be DNR. I feel that his pain is probably pericardial in nature and that his mildly elevated cardiac enzymes are due to demand ischemia. I will start him on colchicine to see if this helps with his discomfort. Also with his severe ischemic cardiomyopathy with ejection fraction of 20% to 25%, he does need to be on carvedilol and possibly an EMERITA inhibitor as well as furosemide. An echocardiogram will be repeated to reassess his left ventricular function and to rule out pericardial effusion. I will follow the patient with you. Job ID: [id number]
[2018-04-05 05:39] LABS: Cardiac Risk 3.5 (Less than 4.5)
[2018-04-05] MEDS: Mometasone/Formoterol 120 PUFF INHALER INH SCH ×2 (06:30→18:38)
[2018-04-05] MEDS ORDERED: Furosemide 40 MG/4 ML VIAL SLOW IVP SCH (09:00)
[2018-04-05] MEDS ORDERED: Furosemide 20 MG TAB PO SCH (09:00)
--- NOTE | 2018-04-05 10:40 | PQF ---
CLINICAL DOCUMENTATION IMPROVEMENT CLARIFICATION FORM: ICD-10 Updated PLEASE DO AN ADDENDUM TO THE PROGRESS NOTE WITH ANY DOCUMENTATION UPDATES OR ADDITIONS AND CARRY THROUGH TO DC SUMMARY. THANK YOU. DATE: 04/05/18 ATTN : DR. AGUILAR Please exercise your independent, professional judgment in responding to the clarification form. Clinical indicators are provided on the bottom of this form for your review Please check appropriate box(s): [ ] NSTEMI [ ] OK TYPE 2 [ X ] DEMAND ISCHEMIA [ ] Other diagnosis [ ] Unable to determine In addition, please specify: Present on Admission (POA): [ X ] Yes [ ] No [ ] Unable to determine CLINICAL INDICATORS - SIGNS / SYMPTOMS / LABS ER NOTE: "NSTEMI" CARDIOLOGY NOTE 04/04: "HIS MILDLY ELEVATED CARDIAC ENZYMES ARE DUE TO DEMAND ISCHEMIA" TROPONINS 0.246 / 0.205 / 0.189 RISKS: ACUTE ON CHRONIC SYSTOLIC CHF EXACERBATION H/O CAD H/O SMOKING H/O ALCOHOL ABUSE TREATMENT: TELEMETRY MONITORING SERIAL LABS CARDIOLOGY CONSULT LOVENOX (ER-PRESENT) ASPIRIN (04/04-PRESENT) NITROGLYCERIN SL (ER) (This form is maintained as a part of the permanent medical record) [employer] 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 All Rights Reserved [email or web address] Office: [phone] AMADOU
[2018-04-05] MEDS: Enoxaparin Sodium 40 MG/0.4 ML SYRINGE SC SCH (10:55)
[2018-04-05] MEDS: Colchicine 0.6 MG TAB PO SCH ×2 (10:55→20:10)
[2018-04-05] MEDS: Carvedilol 3.125 MG TAB PO SCH ×2 (10:55→17:26)
[2018-04-05] MEDS: Aspirin 325 mg Enteric Coated Tablet PO SCH (10:55)
[2018-04-05] MEDS: Famotidine 20 MG TAB PO SCH ×2 (10:55→20:10)
[2018-04-05] MEDS: Famotidine/PF 20 mg/2ml Vial SLOW IVP SCH (10:56)
--- NOTE | 2018-04-05 14:57 | PDOC.PN ---
- Subjective Encounter Start Date: 04/05/18 Encounter Start Time: 11:00 Subjective: pt up in bed no complains - Objective Resuscitation Status - Order Detail: 04/04/18 04:38 Resuscitation Status Routine Resuscitation Status: DNAR: NO Resuscitation Discussed with: patient Vital Signs & Weight: Vital Signs (12 hours) Temp Pulse Pulse Pulse Resp BP BP 04/05/18 10:25 82 91 142/80 H 145/82 H 04/05/18 08:15 97.5 F L 82 20 04/05/18 06:41 04/05/18 06:30 75 16 04/05/18 06:20 75 16 04/05/18 03:04 98.3 F 80 16 BP Pulse Ox 04/05/18 10:25 04/05/18 08:15 135/86 94 L 04/05/18 06:41 98 04/05/18 06:30 04/05/18 06:20 04/05/18 03:04 131/83 96 Weight Admit Weight 119 lb 11.2 oz Weight 116 lb 11.2 oz I&O: 04/04/18 04/05/18 04/06/18 06:59 06:59 06:59 Intake Total 0 1170 Output Total 500 1400 Balance -500 -230 Result Diagrams: 04/04/18 03:07 04/04/18 03:07 Phys Exam - Physical Examination Respiratory: no wheezing, no rales, no rhonchi, wheezing present, clear to auscultation bilateral Cardiovascular: RRR, no significant murmur, no rub, gallop, irregular Gastrointestinal: soft, non-tender, no distention, positive bowel sounds Musculoskeletal: no edema, pulses present, edema present Dx/Plan (1) Acute systolic ACC/AHA stage C congestive heart failure Code(s): I50.21 - ACUTE SYSTOLIC (CONGESTIVE) HEART FAILURE Status: Acute (2) CAD (coronary artery disease) Code(s): I25.10 - ATHSCL HEART DISEASE OF [place] CORONARY ARTERY W/O ANG PCTRS Status: Chronic Qualifiers: Coronary Disease-Associated Artery/Lesion type: [place] artery [place] vs. transplanted heart: [place] heart Associated angina: angina presence unspecified Qualified Code(s): I25.10 - Atherosclerotic heart disease of [place] coronary artery without angina pectoris (3) COPD (chronic obstructive pulmonary disease) Status: Chronic Qualifiers: Emphysema type: panlobular - Plan will continue lasix for now -: pt up walking -: on shady/bb/antilipid -: on colchicine for pain * . Review of Systems - Review of Systems Cardiovascular: negative: chest pain, palpitations, orthopnea, paroxysmal nocturnal dyspnea, edema, light headedness, other Gastrointestinal: negative: Nausea, Vomiting, Abdominal Pain, Diarrhea, Constipation, Melena, Hematochezia, Other Genitourinary: negative: Dysuria, Frequency, Incontinence, Hematuria, Retention , Other Musculoskeletal: negative: Neck Pain, Shoulder Pain, Arm Pain, Back Pain, Hand Pain, Leg Pain, Foot Pain, Other - Medications/Allergies Allergies/Adverse Reactions: Allergies Allergy/AdvReac Type Severity Reaction Status Date / Time Penicillins Allergy Hives Verified 02/03/18 05:21 Medications: Current Medications Acetaminophen (Tylenol) 650 mg PO Q4H PRN PRN Reason: Headache/Fever/Mild Pain (1-3) Hydrocodone Bitart/Acetaminophen ([place] 5/325) 1 tab PO Q4H PRN PRN Reason: Moderate Pain (4-6) Albuterol Sulfate (Proventil Hfa) 2 puff INH Q6H PRN PRN Reason: SOB &/or Wheezing Albuterol Sulfate (Ventolin) 2.5 mg NEB Q8H PRN PRN Reason: Dyspnea/Wheezing/SOB Albuterol/Ipratropium (Duoneb) 3 ml NEB Q4H PRN PRN Reason: SOB &/or Wheezing Last Admin: 04/05/18 06:20 Dose: 3 ml Aspirin (Ecotrin) 325 mg PO DAILY [facility] Last Admin: 04/05/18 10:55 Dose: 325 mg Atorvastatin Calcium (Lipitor) 40 mg PO HS [facility] Last Admin: 04/04/18 21:08 Dose: 40 mg Carvedilol (Coreg) 3.125 mg PO BID-WM [facility] Last Admin: 04/05/18 10:55 Dose: 3.125 mg Colchicine (Colcrys) 0.6 mg PO BID [facility] Last Admin: 04/05/18 10:55 Dose: 0.6 mg Enoxaparin Sodium (Lovenox) 40 mg SC 0900 [facility] Last Admin: 04/05/18 10:55 Dose: 40 mg Famotidine (Pepcid) 20 mg SLOW IVP Q12HR [facility] Last Admin: 04/05/18 10:56 Dose: Not Given Famotidine (Pepcid) 20 mg PO BID [facility] Last Admin: 04/05/18 10:55 Dose: 20 mg Furosemide (Lasix) 20 mg PO DAILY [facility] Last Admin: 04/05/18 10:55 Dose: 20 mg Mometasone Furoate/Formoterol Fumar (Dulera 200 Mcg/5 Mcg Inhaler) 2 puff INH BID-RT [facility] Last Admin: 04/05/18 06:30 Dose: 2 puff Ondansetron HCl (Zofran Odt) 4 mg PO Q6H PRN PRN Reason: Nausea/Vomiting Ondansetron HCl (Zofran) 4 mg IVP Q6H PRN PRN Reason: Nausea/Vomiting Sodium Chloride (Flush - Normal Saline) 10 ml IVF Q12HR [facility] Last Admin: 04/05/18 10:56 Dose: 10 ml Sodium Chloride (Flush - Normal Saline) 10 ml IVF PRN PRN PRN Reason: Saline Flush
[2018-04-05] MEDS: Lisinopril 5 MG TAB PO SCH (20:10)
[2018-04-05] MEDS: Atorvastatin Calcium 40 MG TAB PO SCH (20:10)
[2018-04-06] MEDS: Famotidine/PF 20 mg/2ml Vial SLOW IVP SCH ×3 (02:23→19:51)
[2018-04-06 05:16] LABS: Anion Gap 11 mmol/L (10-20); BUN (Urea Nitrogen) 21 mg/dL (8.4-25.7); Calc. Creatinine Clearance 50 mL/min (70-130); Calcium 8.6 mg/dL (7.8-10.44); Carbon Dioxide 26 mmol/L (23-31); Chloride 106 mmol/L (98-107); Estimated GFR-MDRD 73; Glucose 83 mg/dL (83-110); Potassium 3.7 mmol/L (3.5-5.1); Sodium 139 mmol/L (136-145)
[2018-04-06] MEDS: Mometasone/Formoterol 120 PUFF INHALER INH SCH ×2 (08:01→20:09)
[2018-04-06] MEDS: Aspirin 325 mg Enteric Coated Tablet PO SCH (08:13)
[2018-04-06] MEDS: Lisinopril 5 MG TAB PO SCH ×2 (08:14→19:51)
[2018-04-06] MEDS: Carvedilol 3.125 MG TAB PO SCH (08:14)
[2018-04-06] MEDS: Famotidine 20 MG TAB PO SCH ×2 (08:14→19:50)
[2018-04-06] MEDS: Furosemide 40 MG TAB PO SCH (08:14)
[2018-04-06] MEDS: Colchicine 0.6 MG TAB PO SCH ×2 (08:15→19:51)
[2018-04-06] MEDS: Enoxaparin Sodium 40 MG/0.4 ML SYRINGE SC SCH (08:16)
--- NOTE | 2018-04-06 13:37 | EKG ---
Test Reason : SOB Blood Pressure : / mmHG Vent. Rate : 088 BPM Atrial Rate : 088 BPM P-R Int : 128 ms QRS Dur : 100 ms QT Int : 408 ms P-R-T Axes : 065 058 239 degrees QTc Int : 493 ms Normal sinus rhythm Prolonged QT Abnormal ECG T wave inversion V4 - V6 seen on prior EKG New T wave inversion II, III, aVF Confirmed by ALEXANDER CARTER DO ([id number]), market editor SHARDA DOMINGUEZ ([id number]) on 04/06/2018 1:37:21 PM Referred By: Confirmed By:ALEXANDER CARTER DO
[2018-04-06] MEDS: Carvedilol 6.25 MG TAB PO SCH (17:06)
[2018-04-06] MEDS: Atorvastatin Calcium 40 MG TAB PO SCH (19:51)
--- NOTE | 2018-04-07 05:46 | PDOC.PN ---
- Subjective Encounter Start Date: 04/06/18 - Objective Resuscitation Status - Order Detail: 04/04/18 04:38 Resuscitation Status Routine Resuscitation Status: DNAR: NO Resuscitation Discussed with: patient Vital Signs & Weight: Vital Signs (12 hours) Temp Pulse Resp BP Pulse Ox 04/07/18 00:00 97.9 F 60 18 116/70 98 04/06/18 20:09 63 14 92 L 04/06/18 19:51 65 04/06/18 19:50 98.3 F 65 18 100/61 96 Weight Admit Weight 119 lb 11.2 oz Weight 116 lb 11.2 oz I&O: 04/05/18 04/06/18 04/07/18 06:59 06:59 06:59 Intake Total 1170 1660 720 Output Total 1400 1800 Balance -230 -140 720 Result Diagrams: 04/04/18 03:07 04/06/18 04:32 Dx/Plan (1) Acute systolic ACC/AHA stage C congestive heart failure Code(s): I50.21 - ACUTE SYSTOLIC (CONGESTIVE) HEART FAILURE Status: Acute (2) CAD (coronary artery disease) Code(s): I25.10 - ATHSCL HEART DISEASE OF [place] CORONARY ARTERY W/O ANG PCTRS Status: Chronic Qualifiers: Coronary Disease-Associated Artery/Lesion type: [place] artery [place] vs. transplanted heart: [place] heart Associated angina: angina presence unspecified Qualified Code(s): I25.10 - Atherosclerotic heart disease of [place] coronary artery without angina pectoris (3) COPD (chronic obstructive pulmonary disease) Status: Chronic Qualifiers: Emphysema type: panlobular (4) Chest pain Code(s): R07.9 - CHEST PAIN, UNSPECIFIED Status: Acute - Plan * . Review of Systems - Review of Systems Cardiovascular: negative: chest pain, palpitations, orthopnea, paroxysmal nocturnal dyspnea, edema, light headedness, other Gastrointestinal: negative: Nausea, Vomiting, Abdominal Pain, Diarrhea, Constipation, Melena, Hematochezia, Other Genitourinary: negative: Dysuria, Frequency, Incontinence, Hematuria, Retention , Other - Medications/Allergies Allergies/Adverse Reactions: Allergies Allergy/AdvReac Type Severity Reaction Status Date / Time Penicillins Allergy Hives Verified 02/03/18 05:21 Medications: Current Medications Acetaminophen (Tylenol) 650 mg PO Q4H PRN PRN Reason: Headache/Fever/Mild Pain (1-3) Hydrocodone Bitart/Acetaminophen ([place] 5/325) 1 tab PO Q4H PRN PRN Reason: Moderate Pain (4-6) Albuterol Sulfate (Proventil Hfa) 2 puff INH Q6H PRN PRN Reason: SOB &/or Wheezing Albuterol Sulfate (Ventolin) 2.5 mg NEB Q8H PRN PRN Reason: Dyspnea/Wheezing/SOB Albuterol/Ipratropium (Duoneb) 3 ml NEB Q4H PRN PRN Reason: SOB &/or Wheezing Last Admin: 04/06/18 07:53 Dose: 3 ml Aspirin (Ecotrin) 325 mg PO DAILY [facility] Last Admin: 04/06/18 08:13 Dose: 325 mg Atorvastatin Calcium (Lipitor) 80 mg PO HS [facility] Last Admin: 04/06/18 19:51 Dose: 80 mg Carvedilol (Coreg) 6.25 mg PO BID-WM [facility] Last Admin: 04/06/18 17:06 Dose: 6.25 mg Colchicine (Colcrys) 0.6 mg PO BID [facility] Last Admin: 04/06/18 19:51 Dose: 0.6 mg Enoxaparin Sodium (Lovenox) 40 mg SC 0900 [facility] Last Admin: 04/06/18 08:16 Dose: Not Given Famotidine (Pepcid) 20 mg SLOW IVP Q12HR [facility] Last Admin: 04/06/18 19:51 Dose: Not Given Famotidine (Pepcid) 20 mg PO BID [facility] Last Admin: 04/06/18 19:50 Dose: 20 mg Furosemide (Lasix) 40 mg PO DAILY-AC [facility] Last Admin: 04/06/18 08:14 Dose: 40 mg Lisinopril (Zestril) 5 mg PO BID [facility] Last Admin: 04/06/18 19:51 Dose: Not Given Mometasone Furoate/Formoterol Fumar (Dulera 200 Mcg/5 Mcg Inhaler) 2 puff INH BID-RT [facility] Last Admin: 04/06/18 20:09 Dose: 2 puff Ondansetron HCl (Zofran Odt) 4 mg PO Q6H PRN PRN Reason: Nausea/Vomiting Ondansetron HCl (Zofran) 4 mg IVP Q6H PRN PRN Reason: Nausea/Vomiting Sodium Chloride (Flush - Normal Saline) 10 ml IVF Q12HR [facility] Last Admin: 04/06/18 19:51 Dose: 10 ml Sodium Chloride (Flush - Normal Saline) 10 ml IVF PRN PRN PRN Reason: Saline Flush
[2018-04-07 07:11] LABS: Anion Gap 13 mmol/L (10-20); BUN (Urea Nitrogen) 21 mg/dL (8.4-25.7); Calc. Creatinine Clearance 47 mL/min (70-130); Calcium 8.9 mg/dL (7.8-10.44); Carbon Dioxide 24 mmol/L (23-31); Chloride 105 mmol/L (98-107); Estimated GFR-MDRD 70; Glucose 78 mg/dL (83-110); Potassium 4.8 mmol/L (3.5-5.1); Sodium 137 mmol/L (136-145)
[2018-04-07] MEDS: Furosemide 40 MG TAB PO SCH (07:52)
[2018-04-07] MEDS: Colchicine 0.6 MG TAB PO SCH ×2 (07:52→20:11)
[2018-04-07] MEDS: Carvedilol 6.25 MG TAB PO SCH ×2 (07:52→17:18)
[2018-04-07] MEDS: Lisinopril 5 MG TAB PO SCH ×2 (07:53→20:11)
[2018-04-07] MEDS: Aspirin 325 mg Enteric Coated Tablet PO SCH (07:53)
[2018-04-07] MEDS: Famotidine 20 MG TAB PO SCH ×2 (07:53→20:11)
[2018-04-07] MEDS: Enoxaparin Sodium 40 MG/0.4 ML SYRINGE SC SCH (07:56)
[2018-04-07] MEDS: Famotidine/PF 20 mg/2ml Vial SLOW IVP SCH (07:56)
[2018-04-07] MEDS: Mometasone/Formoterol 120 PUFF INHALER INH SCH ×2 (08:01→20:16)
--- NOTE | 2018-04-07 13:53 | PRG ---
DATE OF SERVICE: 04/07/2018 SUBJECTIVE: The patient continues to feel generally weak and fatigued. He has intermittent chest discomfort that is pleuritic. No nausea, vomiting, diaphoresis reported. No fever, chills reported. He denies any other complaints. REVIEW OF SYSTEMS: As discussed above, no new focal deficit. CURRENT MEDICATIONS: Reviewed. The patient is on: 1. Aspirin. 2. Lipitor. 3. Carvedilol. 4. Colchicine. 5. Lovenox for DVT prophylaxis. 6. Pepcid 40 mg. 7. Lasix. 8. Lisinopril. PHYSICAL EXAMINATION: VITAL SIGNS: Temperature 97.4, pulse 61, respiration 18, blood pressure 128/84 , O2 saturation 98% on room air. Intake of 1660, output 1800. Weight 113. GENERAL: A 73-year-old male, in no apparent distress. NECK: Supple. No JVD. No carotid bruit. LUNGS: Clear to auscultation bilaterally. HEART: S1 and S2 present. Regular rate and rhythm. ABDOMEN: Soft. Bowel sounds present. EXTREMITIES: No edema or calf tenderness. NEUROLOGIC: Grossly nonfocal. LABORATORY FINDINGS: CBC on showed WBC 8 with hemoglobin 12.4. Chemistry today showed BUN 21, creatinine 1.04, sodium 137, potassium 4.8. Echocardiogram on showed ejection fraction 25% to 30% with moderate mitral regurgitation, severe tricuspid regurgitation, moderate aortic regurgitation. IMPRESSION: 1. Acute on chronic systolic heart failure exacerbation, improving. ACC stage C, 2. Chest discomfort suspected secondary to post pericardiotomy syndrome. 3. Coronary artery disease, status post redo coronary artery bypass grafting in February 07. 4. Hyperlipidemia. 5. Former smoker. 6. Severe ischemic cardiomyopathy. 7. Chronic obstructive pulmonary disease. 8. History of alcohol abuse. 9. Elevated troponin secondary to demand ischemia. 10. Chronic kidney disease stage 2. 11. Chronic anemia. PLAN: The patient will be monitored as inpatient. Will continue oral Lasix along with EMERITA inhibitor and beta-nick. Colchicine will be continued. The patient was counseled on congestive heart failure. We will repeat labs in a.m. Probably discharge in 24 to 48 hours. Plan of care was discussed with the patient in detail. He stated understanding. Job ID: [id number] [facility]
[2018-04-07] MEDS: Atorvastatin Calcium 40 MG TAB PO SCH (20:11)
[2018-04-08] MEDS: Mometasone/Formoterol 120 PUFF INHALER INH SCH (06:40)
[2018-04-08 07:06] LABS: Hemoglobin 13.2 g/dL (14.0-18.0); Platelet Count 250 thou/uL (130-400)
[2018-04-08 07:29] LABS: Anion Gap 13 mmol/L (10-20); BUN (Urea Nitrogen) 19 mg/dL (8.4-25.7); Calc. Creatinine Clearance 47 mL/min (70-130); Calcium 8.7 mg/dL (7.8-10.44); Carbon Dioxide 21 mmol/L (23-31); Chloride 107 mmol/L (98-107); Estimated GFR-MDRD 70; Glucose 81 mg/dL (83-110); Magnesium 2.3 mg/dL (1.6-2.6); Potassium 4.5 mmol/L (3.5-5.1); Sodium 136 mmol/L (136-145)
[2018-04-08 08:06] VITALS: TEMP 97.3
[2018-04-08] MEDS: Lisinopril 5 MG TAB PO SCH (08:07)
[2018-04-08] MEDS: Furosemide 40 MG TAB PO SCH (08:07)
[2018-04-08] MEDS: Aspirin 325 mg Enteric Coated Tablet PO SCH (08:08)
[2018-04-08] MEDS: Carvedilol 6.25 MG TAB PO SCH (08:08)
[2018-04-08] MEDS: Colchicine 0.6 MG TAB PO SCH (08:08)
[2018-04-08] MEDS: Enoxaparin Sodium 40 MG/0.4 ML SYRINGE SC SCH (08:08)
[2018-04-08 08:09] VITALS: BP 112/66
[2018-04-08] MEDS: Famotidine 20 MG TAB PO SCH (08:09)
--- NOTE | 2018-04-08 20:45 | DIS ---
DATE OF ADMISSION: 04/04/2018 DATE OF DISCHARGE: 04/08/2018 DISCHARGE DISPOSITION: Home. FOLLOWUP: 1. Follow up with primary care physician, Dr. Wong in 1 week. 2. Follow up with Dr. Pak next month. 3. Heart Failure Clinic followup. 4. after 2 weeks is recommended. Primary care physician advised to follow. CODE STATUS: Do not resuscitate. The patient was seen and examined on the day of discharge. Denies any new complaints. No chest pain, shortness of breath, or palpitations. DISCHARGE MEDICATIONS: Albuterol nebulizer treatment as needed, albuterol inhaler as needed, aspirin 325 mg daily, Lipitor 80 mg q.h.s., coreg 6.25 mg b.i.d., colchicine 0.6 mg twice a day for next two weeks, Lasix 40 mg daily, lisinopril 5 mg b.i.d. BRIEF HOSPITAL COURSE: The patient is a 73-year-old male with recent coronary artery bypass grafting, presented to the emergency room with chest discomfort. Please refer to the history and physical for further details. The patient was admitted to the hospital with a diagnosis of chest discomfort, rule out acute coronary syndrome. The patient was seen by Cardiology, Dr. Pak. Dr. Pak felt that his pain is probably secondary to postpericardiotomy syndrome. His chest discomfort improved with colchicine. Repeat echocardiogram was done and that showed ejection fraction of 25% to 30%. He has been cleared by Cardiology for discharge. Plan of care was discussed with the patient in detail. He stated understanding. Significant labs; troponin 0.246, BNP 2894, creatinine 0.9. FINAL DIAGNOSES: 1. Chest discomfort consistent with postpericardiotomy syndrome. 2. Acute on chronic systolic heart failure exacerbation, improved with diuretics. 3. Coronary artery disease, status post redo coronary artery bypass graft in January of this year. 4. Hyperlipidemia. 5. Chronic kidney disease stage 2. 6. Former smoker. 7. Severe ischemic cardiomyopathy. 8. Medication noncompliance. 9. Chronic obstructive pulmonary disease. 10. History of alcohol abuse. 11. Elevated troponin secondary to demand ischemia. 12. Chronic anemia. PLAN: Plan of care was discussed with the patient in detail. He stated understanding. Job ID: [id number]
== END 2018-04-08 14:28 | disposition home or self-care (01) | DRG 291 ==
LOC: ERS 22:46 → 2NO 04-04 03:10 → T4-B 04-06 14:33
PROVIDERS: ADMIT Internal Medicine; ATTEND Internal Medicine
DX: I13.0 Hypertensive heart and chronic kidney disease with heart failure and stage 1 through stage 4 chronic kidney disease, or unspecified chronic kidney disease (principal); I50.23 Acute on chronic systolic (congestive) heart failure; I24.8 Other forms of acute ischemic heart disease; N18.2 Chronic kidney disease, stage 2 (mild); Z87.891 Personal history of nicotine dependence; I25.5 Ischemic cardiomyopathy; Z91.14 Patient's other noncompliance with medication regimen; J44.9 Chronic obstructive pulmonary disease, unspecified; D63.1 Anemia in chronic kidney disease; E78.00 Pure hypercholesterolemia, unspecified; I08.1 Rheumatic disorders of both mitral and tricuspid valves; Z66 Do not resuscitate; I97.0 Postcardiotomy syndrome
CPT/HCPCS: 36415; 71045; 80048; 80053; 80061; 82550; 82553; 83735; 83880; 84443; 84484; 85014; 85018; 85025; 85049; 93005; 93010; 93306; 93798; 94640; 94644; 94664; 96372; 96374; 96375; J1650; J1940; J2930; J7620; S0028

== ENCOUNTER 2018-07-17 16:50 | Observation (INO) | payer MEDICARE, MEDICAID ==
[2018-07-17 17:49] LABS: #Eosinphils 0.1 thou/uL (0.0-0.7); #Lymphocytes 1.2 thou/uL (1.20-3.40); #Monocytes 0.4 thou/uL (0.11-0.59); #Neutrophils 5.2 thou/uL (1.40-6.50); %Basophils 0.6 % (0.0-1.0); %Eosinophils 1.4 % (0.0-10.0); %Lymphocytes 17.7 % (21.0-51.0); %Monocytes 6.3 % (0.0-10.0); Hemoglobin 13.8 g/dL (14.0-18.0); Mean Corpuscular HGB CONC 31.7 g/dL (32.0-36.0); Mean Corpuscular Hemoglobin 30.4 pg (27.0-31.0); Mean Corpuscular Volume 96.1 fL (78.0-98.0); Mean Platelet Volume 8.8 fL (7.4-10.4); Platelet Count 216 thou/uL (130-400); RBC Distribution Width 14.5 % (11.5-14.5); Red Blood Cell (RBC) Count 4.52 mill/uL (4.70-6.10)
[2018-07-17 18:23] LABS: ALT (SGPT) 43 U/L (8-55); AST (SGOT) 39 U/L (5-34); Albumin 3.8 g/dL (3.4-4.8); Alkaline Phosphatase 90 U/L (40-150); Anion Gap 13 mmol/L (10-20); BUN (Urea Nitrogen) 21 mg/dL (8.4-25.7); Bilirubin, Total 1.3 mg/dL (0.2-1.2); Calc. Creatinine Clearance 0 mL/min (70-130); Calcium 8.8 mg/dL (7.8-10.44); Carbon Dioxide 23 mmol/L (23-31); Chloride 107 mmol/L (98-107); Estimated GFR-MDRD 59; Globulin 3.1 g/dL (2.4-3.5); Glucose 132 mg/dL (83-110); Potassium 4.2 mmol/L (3.5-5.1); Protein, Total 6.9 g/dL (5.8-8.1); Sodium 139 mmol/L (136-145)
--- NOTE | 2018-07-17 19:24 | RAD ---
CHEST TWO VIEWS: 07/17/18 HISTORY: Dyspnea. Cough. COMPARISON: 04/03/18. FINDINGS: Cardiac silhouette remains enlarged. Pulmonary vasculature is upper limits of normal. Widespread coar sened interstitium and fibrotic changes are again demonstrated. Lungs remain hyperinflated. Minimal b lunting of each costophrenic angle. No lobar consolidation or evidence of pneumothorax. Mediastinum i s midline with postoperative changes and aortic calcification. IMPRESSION: Pulmonary hyperinflation and fibrotic changes of the lungs, chronic. No active cardiopulmonary abnorm alities are otherwise demonstrated. Cardiomegaly. Atherosclerosis. POS: BEBETO
[2018-07-17] MEDS ORDERED: Acetaminophen 325 MG TAB PO PRN (21:11)
[2018-07-17] MEDS ORDERED: Ondansetron ODT 4 MG TAB PO PRN (21:11)
[2018-07-17 22:54] VITALS: BMI 21.4
[2018-07-17 22:59] LABS: Troponin I 0.032 ng/mL (< 0.028)
[2018-07-17] MEDS: methylPREDNISolone Sod Succ/PF 125 MG/2 ML VIAL IVP SCH (23:53)
[2018-07-18] MEDS ORDERED: Albuterol Sulfate 2.5 mg/3 ml Neb NEB PRN (01:39)
[2018-07-18 01:55] LABS: Troponin I 0.023 ng/mL (< 0.028)
--- NOTE | 2018-07-18 02:41 | HP ---
PRIMARY CARE DOCTOR: The patient goes to [facility]. CODE STATUS: Full code. TIME OF EVALUATION: 08:15 p.m. CHIEF COMPLAINT: Shortness of breath. HISTORY OF PRESENT ILLNESS: This is a 73-year-old male patient with past medical history of hyperlipidemia, COPD, CHF, CAD, came to the hospital after having severe, gradually worsening shortness of breath associated with greenish sputum. No clear triggers, no alleviating factors. The patient's symptoms started insidiously and today has been getting worse. The patient has got some improvement with DuoNeb and Solu-Medrol given by EMS. REVIEW OF SYSTEMS: CONSTITUTIONAL: No fever, chills, or generalized weakness. RESPIRATORY: The patient has cough, sputum production, and shortness of breath. CARDIOVASCULAR: No chest pain or palpitation. GASTROINTESTINAL: No nausea. No vomiting, diarrhea, or abdominal pain. FOOD SERVICES COORDINATOR: No dizziness, headache, or feeling lightheaded. GENITOURINARY: No burning on urination. EXTREMITIES: No leg swelling. All other systems were reviewed and negative except for the findings mentioned above. PAST MEDICAL HISTORY: As mentioned in HPI. PAST SURGICAL HISTORY: 1. Coronary artery disease. 2. CABG x2 vessels in 2018. PSYCHIATRIC HISTORY: No previous psych history. FAMILY HISTORY: Reviewed and non contributory to current presentation. SOCIAL HISTORY: No alcohol. No drug use. The patient chews tobacco. KNOWN ALLERGIES: To penicillin. REPORTED MEDICATIONS: 1. Aspirin. 2. Atorvastatin. 3. Carvedilol. 4. Colcrys. 5. Lasix. 6. Lisinopril. PHYSICAL EXAMINATION: VITAL SIGNS: On presentation, blood pressure 110/95 with heart rate 88, respiratory rate was 20, pain was 8/10, oxygen saturation was 100 on 4 L of nasal cannula. GENERAL APPEARANCE: The patient is alert, oriented, not in acute distress. HEENT: Eyes, normal conjunctivae. Moist oral mucosa. Anicteric. No JVD. RESPIRATORY: The patient has bilateral air entry, that is decreased. The patient has no rales. The patient has bilateral wheezing. Symmetric expansion. CARDIOVASCULAR: The patient has normal rate and rhythm. No murmurs. No gallop. No edema. ABDOMEN: Soft. Normal bowel sounds. MUSCULOSKELETAL: Baseline range of motion and strength. No tenderness. SKIN: Warm, intact. No pallor. No rash. No redness. Peripheral pulses are present. Capillary refill seems to be intact. NEURO: No evidence of any new focal weakness. Baseline speech. Cranial nerves seem to be intact. PSYCH: The patient is in good mood. No anxiety. Optimal judgment. DIAGNOSTIC STUDIES: EKG, the patient has sinus rhythm with sharp [place], some PVCs, ventricular rate 93, NY 104, QRS 90, QT corrected 487. Chest x-ray was reviewed. The patient has pulmonary hyperinflation with fibrotic changes in the lungs. No active cardiopulmonary abnormalities, cardiomegaly, or atherosclerosis. LABORATORY DATA: Reviewed. The patient has white count 7.0, hemoglobin 13.8, MCV 96.1, and platelet count 216. Chemistry; sodium 139, potassium 4.2, chloride 107, carbon dioxide 23, anion gap 13, BUN 21, creatinine 1.22, GFR 59, glucose 132, calcium 9.9, and total bilirubin 1.3. LFTs were negative. Troponin 0.035, second one is 0.032. Beta natriuretic peptide 3706. Serum total protein 6.9, albumin 3.8, globulin 3.1, albumin globulin ratio is 1.2. ASSESSMENT AND PLAN: The patient has been placed in the hospital with following medical problems: 1. Possible chronic obstructive pulmonary disease exacerbation. The patient has bilateral wheezing, some yellowish sputum, the patient will be placed on antibiotic medications and steroids, we will monitor, we will treat accordingly. 2. [place]q-[id number] myocardial infarction, type 2. The patient has mild elevation of troponin, was 0.035, second one was 0.032. We will trend troponins, we will treat accordingly. 3. Possible underlying congestive heart failure. The patient has a beta natriuretic peptide 3706 and has a history reportedly of congestive heart failure. We will place the patient on diuretics, we will reconcile home medications as soon as they have updated. 4. Hyperlipidemia, reconcile home medications. Low-cholesterol diet is advised. 5. Hypertension, reconcile home medications, adjust as needed. DVT Prophylaxis Job ID: [id number] [facility]
[2018-07-18] MEDS: methylPREDNISolone Sod Succ/PF 125 MG/2 ML VIAL IVP SCH ×3 (05:27→17:13)
[2018-07-18 07:13] LABS: #Lymphocytes 0.8 thou/uL (1.20-3.40); #Monocytes 0.2 thou/uL (0.11-0.59); #Neutrophils 4.8 thou/uL (1.40-6.50); %Basophils 0.1 % (0.0-1.0); %Eosinophils 0.2 % (0.0-10.0); %Lymphocytes 12.9 % (21.0-51.0); %Monocytes 3.7 % (0.0-10.0); %Neutrophils 83.1 % (42.0-75.0); Hemoglobin 13.2 g/dL (14.0-18.0); Mean Corpuscular HGB CONC 32.2 g/dL (32.0-36.0); Mean Corpuscular Volume 96.3 fL (78.0-98.0); Mean Platelet Volume 9.4 fL (7.4-10.4); Platelet Count 185 thou/uL (130-400); RBC Distribution Width 14.2 % (11.5-14.5); Red Blood Cell (RBC) Count 4.25 mill/uL (4.70-6.10); White Blood Cell (WBC) Count 5.8 thou/uL (4.8-10.8)
[2018-07-18 07:32] LABS: Anion Gap 13 mmol/L (10-20); BUN (Urea Nitrogen) 20 mg/dL (8.4-25.7); Calc. Creatinine Clearance 53 mL/min (70-130); Calcium 8.8 mg/dL (7.8-10.44); Carbon Dioxide 19 mmol/L (23-31); Chloride 109 mmol/L (98-107); Estimated GFR-MDRD 71; Glucose 138 mg/dL (83-110); Potassium 4.3 mmol/L (3.5-5.1); Sodium 137 mmol/L (136-145)
[2018-07-18] MEDS ORDERED: Furosemide 40 MG/4 ML VIAL SLOW IVP SCH (09:00)
[2018-07-18] MEDS: Carvedilol 6.25 MG TAB PO SCH ×2 (09:50→16:42)
[2018-07-18] MEDS: Lisinopril 5 MG TAB PO SCH ×2 (10:09→20:45)
[2018-07-18] MEDS: Colchicine 0.6 MG TAB PO SCH ×2 (10:09→20:46)
[2018-07-18] MEDS: Enoxaparin Sodium 40 MG/0.4 ML SYRINGE SC SCH (10:10)
[2018-07-18] MEDS: Furosemide 40 MG/4 ML VIAL SLOW IVP SCH (13:35)
--- NOTE | 2018-07-18 19:14 | PRG ---
DATE OF SERVICE: 07/18/2018 SUBJECTIVE: Mr. Muse is a pleasant 73-year-old male with past medical history significant for coronary artery disease status post three-vessel CABG in January 2018, ischemic cardiomyopathy with EF estimated at 25% to 30%, COPD, uses 1-1/2 pack per day current tobacco use, and chronic kidney disease likely secondary to cardiorenal syndrome, who presented to the hospital with complaints of worsening shortness of breath and productive sputum. The patient has been admitted with combined COPD and acute systolic CHF exacerbation. He is slowly improving with DuoNebs, steroids, as well as IV diuresis. He is diuresing effectively. He does remain fairly short of breath with ambulation and is not back to his baseline. He denies any chest pain. He denies any nausea, vomiting, or diarrhea. He denies any subjective fever or chills. OBJECTIVE: VITAL SIGNS: Blood pressure 117/80, O2 saturation 92% on room air, temperature 97.4, and pulse is 74. GENERAL: The patient is a thin male, resting comfortably in bed, in no acute distress. HEAD: Atraumatic, normocephalic. HEENT: Mucous membranes moist, poor dentition. NECK: No JVD. No carotid bruit. No lymphadenopathy. CV: S1 and S2. Regular rate and rhythm. LUNGS: Regular respiratory rate and pattern. The patient actually has good vesicular breath sounds, with occasional rhonchi. I cannot discern any crackles. ABDOMEN: Soft, positive bowel sounds. Nontender. EXTREMITIES: No edema. SKIN: No obvious rash or discoloration. LABORATORY DATA: Serial troponin has been 0.035, 0.032, and 0.023. BNP 3700, hemoglobin 13.2, hematocrit 40.9, white blood cell 5.8. Sodium 137, potassium 4.3, chloride 109, creatinine 1.03. ASSESSMENT: 1. Shortness of breath secondary to combined acute chronic obstructive pulmonary disease exacerbation and acute systolic congestive heart failure exacerbation, symptomatically slowly improving. 2. Ischemic cardiomyopathy with EF 25%. 3. Advanced chronic obstructive pulmonary disease with continued tobacco abuse. 4. Hypertension. 5. Chronic kidney disease, stable. PLAN: At this time, we will continue pulmonary toilet with breathing treatments, steroids, and IV levofloxacin. We will continue IV diuresis and monitor electrolytes closely. Monitor in's and out's. Low-sodium diet. I expect with continued treatment that the patient will be back to baseline tomorrow and can be discharged. Care discussed with Dr. Angelo, who does agree with plan as above. Job ID: [id number]
[2018-07-18] MEDS ORDERED: Atorvastatin Calcium 40 MG TAB PO SCH (21:00)
[2018-07-18] MEDS: methylPREDNISolone Sod Succ 40 MG VIAL IVP SCH (23:12)
[2018-07-19] MEDS: methylPREDNISolone Sod Succ 40 MG VIAL IVP SCH (05:10)
[2018-07-19] MEDS: Furosemide 40 MG/4 ML VIAL SLOW IVP SCH (05:10)
[2018-07-19 05:23] LABS: #Monocytes 0.8 thou/uL (0.11-0.59); %Eosinophils 0.2 % (0.0-10.0); %Lymphocytes 6.9 % (21.0-51.0); %Monocytes 5.6 % (0.0-10.0); %Neutrophils 87.2 % (42.0-75.0); Hemoglobin 12.5 g/dL (14.0-18.0); Mean Corpuscular HGB CONC 32.2 g/dL (32.0-36.0); Mean Corpuscular Volume 96.4 fL (78.0-98.0); Mean Platelet Volume 9.1 fL (7.4-10.4); Platelet Count 187 thou/uL (130-400); RBC Distribution Width 14.3 % (11.5-14.5); Red Blood Cell (RBC) Count 4.02 mill/uL (4.70-6.10); White Blood Cell (WBC) Count 14.9 thou/uL (4.8-10.8)
[2018-07-19 05:38] LABS: Anion Gap 14 mmol/L (10-20); BUN (Urea Nitrogen) 27 mg/dL (8.4-25.7); Calc. Creatinine Clearance 43 mL/min (70-130); Calcium 8.9 mg/dL (7.8-10.44); Carbon Dioxide 22 mmol/L (23-31); Chloride 103 mmol/L (98-107); Estimated GFR-MDRD 57; Glucose 105 mg/dL (83-110); Potassium 4.2 mmol/L (3.5-5.1); Sodium 135 mmol/L (136-145)
[2018-07-19] MEDS: Lisinopril 5 MG TAB PO SCH (08:06)
[2018-07-19] MEDS: Carvedilol 6.25 MG TAB PO SCH (08:06)
[2018-07-19] MEDS: Colchicine 0.6 MG TAB PO SCH (08:06)
[2018-07-19] MEDS: Enoxaparin Sodium 40 MG/0.4 ML SYRINGE SC SCH (08:07)
[2018-07-19 11:06] VITALS: TEMP 97.4
[2018-07-19 12:07] VITALS: BP 113/76
--- NOTE | 2018-07-20 05:21 | DIS ---
DATE OF ADMISSION: 07/17/2018 DATE OF DISCHARGE: 07/19/2018 ALLERGIES: PENICILLIN. CHIEF COMPLAINT: Shortness of breath and productive cough. FINAL DIAGNOSES: 1. Shortness of breath secondary to combined acute chronic obstructive pulmonary disease exacerbation and acute exacerbation of chronic systolic heart failure. 2. Ischemic cardiomyopathy with last ejection fraction noted to be 25% to 30%. 3. Chronic obstructive pulmonary disease with continued tobacco abuse. 4. Chronic kidney disease, stable, likely secondary to cardiorenal syndrome. PROCEDURE PERFORMED: None. LABORATORY RESULTS: White blood cell count 14.9, hemoglobin 12.5, hematocrit 38.2. Sodium 135, potassium 4.2, chloride 103, carbon dioxide 22, anion gap 14, BUN 27, creatinine 1.25, estimated GFR is 57. Troponin was 0.035, 0.032, and 0.023 respectively. His initial admitting BNP was 3700. IMAGING RESULTS: Chest x-ray showed pulmonary hyperinflation and fibrotic changes of the lungs, which is chronic. No active cardiopulmonary abnormalities were demonstrated. CONSULTATIONS: None. VITAL SIGNS: Blood pressure 116/78, pulse is 69, O2 saturation is 93% on room air. HOSPITAL COURSE: The patient is a pleasant 73-year-old male with past medical history significant for COPD, chronic systolic heart failure, ischemic cardiomyopathy, and coronary artery disease, status post three vessel coronary artery bypass grafting in January 2018, who presented to the hospital with a 3 to 4-day history of progressive shortness of breath and cough productive of greenish and yellow sputum. The patient denied any fevers, chills, nausea, or vomiting. His symptoms did progress to the point that he could not ambulate across the room of his residence, and so presented to the ER for further workup and treatment. He was admitted with acute COPD and exacerbation of his chronic heart failure. He was given IV diuretics with good response, as well as IV Solu-Medrol, IV antibiotics, and breathing treatments. This morning, the patient's breathing is back to baseline. His cough has resolved. He has no orthopnea and states that his overall breathing is much improved. PHYSICAL EXAMINATION: GENERAL: The patient is a thin male, resting comfortably in bed, in no acute distress. HEAD: Atraumatic, normocephalic. HEENT: Mucous membranes are moist, poor dentition. NECK: No JVD. No carotid bruit. No lymphadenopathy. CV: S1 and S2. Regular rate and rhythm. No appreciable murmurs, rubs, or gallops. LUNGS: Regular respiratory rate and pattern. The patient has good vesicular breath sounds, no rhonchi, wheezes, or crackles this morning. ABDOMEN: Soft. Positive bowel sounds. Nontender. EXTREMITIES: No edema. SKIN: No obvious rash or discoloration. CONDITION AT DISCHARGE: Stable. DISCHARGE MEDICATIONS: 1. Albuterol rescue inhaler. 2. Atorvastatin 80 mg one tablet p.o. at bedtime. 3. Carvedilol 6.25 mg tablet one tablet p.o. b.i.d. 4. Lisinopril 5 mg tablet one tablet p.o. b.i.d. 5. Ipratropium and albuterol nebulizer p.r.n. 6. I have changed his maintenance Lasix dose to 20 mg daily. Apparently, the patient was not taking his home dose of Lasix at all for several weeks. 7. Levofloxacin 500 mg tablet one tablet p.o. daily for the next 5 days. DISCHARGE DISPOSITION: Home. PLAN: I have counseled the patient heavily on the importance of taking his maintenance diuretics as directed, as well as maintaining a low sodium diet. I have also counseled him extensively on tobacco cessation, and the patient is receptive to this. He needs to continue risk factor modification, smoking cessation. He has been discharged in stable condition today. Care plan discussed with Dr. Farris, who agrees. Job ID: [id number]
== END 2018-07-19 12:17 | disposition home or self-care (01) ==
LOC: ERS 16:50 → 2SW 19:20
PROVIDERS: ADMIT Emergency Medicine; ATTEND Emergency Medicine
DX: J44.1 Chronic obstructive pulmonary disease with (acute) exacerbation (principal); I13.0 Hypertensive heart and chronic kidney disease with heart failure and stage 1 through stage 4 chronic kidney disease, or unspecified chronic kidney disease; I50.23 Acute on chronic systolic (congestive) heart failure; N18.9 Chronic kidney disease, unspecified; F17.220 Nicotine dependence, chewing tobacco, uncomplicated; I25.5 Ischemic cardiomyopathy; E78.5 Hyperlipidemia, unspecified; I25.10 Atherosclerotic heart disease of native coronary artery without angina pectoris; Z79.82 Long term (current) use of aspirin; Z79.899 Other long term (current) drug therapy; Z88.0 Allergy status to penicillin; Z95.1 Presence of aortocoronary bypass graft
CPT/HCPCS: 71046; 80048 ×2; 80053; 82553; 83880; 84484 ×3; 85025 ×3; 93005; 94640 ×4; 96365; 96366; 96372; 96375 ×2; 96376 ×2; 99285; 99406; G0378 ×2; 36415; J1650; J1940; J1956; J2920; J2930; J7620

== ENCOUNTER 2018-10-19 13:31 | Inpatient (IN) | payer MEDICARE, MEDICAID ==
--- NOTE | 2018-10-19 13:53 | RAD ---
Exam: Chest one view HISTORY:Shortness of breath Comparison: 09/29/2018 FINDINGS: Cardiac silhouette:Cardiomegaly. There are sternotomy wires. Atherosclerosis of the aorta. Pulmonary vessels: Pulmonary vascular prominence. Costophrenic angles: Small bilateral effusions. LUNGS: Interstitial edema superimposed upon chronic change. Lungs are hyperinflated. Pneumothorax: None Osseous abnormalities: None IMPRESSION: 1. Atherosclerosis 2. Congestive heart failure. Cardiomegaly. Interstitial edema superimposed upon chronic change. 3. COPD.
[2018-10-19 13:56] LABS: #Basophils 0.1 thou/uL (0.0-0.2); #Eosinphils 0.1 thou/uL (0.0-0.7); #Neutrophils 6.4 thou/uL (1.40-6.50); %Basophils 0.8 % (0.0-1.0); %Eosinophils 1.1 % (0.0-10.0); %Neutrophils 67.2 % (42.0-75.0); Hemoglobin 14.8 g/dL (14.0-18.0); Mean Corpuscular HGB CONC 32.7 g/dL (32.0-36.0); Mean Corpuscular Hemoglobin 31.5 pg (27.0-31.0); Mean Corpuscular Volume 96.4 fL (78.0-98.0); Mean Platelet Volume 9.9 fL (7.4-10.4); Platelet Count 148 thou/uL (130-400); RBC Distribution Width 15.3 % (11.5-14.5); White Blood Cell (WBC) Count 9.6 thou/uL (4.8-10.8)
[2018-10-19 14:26] LABS: ALT (SGPT) 71 U/L (8-55); AST (SGOT) 41 U/L (5-34); Albumin 3.6 g/dL (3.4-4.8); Alkaline Phosphatase 111 U/L (40-150); Anion Gap 18 mmol/L (10-20); BUN (Urea Nitrogen) 29 mg/dL (8.4-25.7); Bilirubin, Total 2.3 mg/dL (0.2-1.2); Calc. Creatinine Clearance 0 mL/min (70-130); Calcium 9.3 mg/dL (7.8-10.44); Carbon Dioxide 19 mmol/L (23-31); Chloride 109 mmol/L (98-107); Estimated GFR-MDRD 53; Globulin 2.9 g/dL (2.4-3.5); Glucose 109 mg/dL (83-110); Potassium 4.4 mmol/L (3.5-5.1); Protein, Total 6.5 g/dL (5.8-8.1); Sodium 142 mmol/L (136-145)
[2018-10-19] MEDS ORDERED: Aspirin Chewable 81 MG TAB ONE (15:25)
[2018-10-19] MEDS ORDERED: Furosemide 40 MG/4 ML VIAL ONE (15:25)
[2018-10-19] MEDS ORDERED: Ondansetron ODT 4 MG TAB SL PRN (15:50)
[2018-10-19] MEDS ORDERED: Ondansetron PF 4 MG/2 ML Vial IVP PRN (15:50)
[2018-10-19] MEDS ORDERED: Acetaminophen 325 MG TAB PO PRN ×2 (15:50→17:34)
[2018-10-19] MEDS ORDERED: Senokot S 8.6-50 MG TAB PO PRN (17:34)
[2018-10-19 17:39] VITALS: BMI 21.7
[2018-10-19] MEDS ORDERED: Albuterol Sulfate 1.25 MG/3 ML NEB NEB PRN (17:42)
[2018-10-19 17:52] LABS: Troponin I 0.023 ng/mL (< 0.028)
[2018-10-19] MEDS ORDERED: Nitroglycerin 0.4 MG TAB (25 Tab Bottle) SL PRN (17:58)
[2018-10-19] MEDS: methylPREDNISolone Sod Succ 40 MG VIAL IVP SCH (18:37)
--- NOTE | 2018-10-19 18:45 | HP ---
PRIMARY CARE PROVIDER: Himanshu Wong MD CHIEF COMPLAINT: "Could not catch my breath." HISTORY OF PRESENT ILLNESS: This is a 73-year-old male with known systolic heart failure and an EF back in March of 25% to 30%, coronary artery disease with history of CABG x2 most recently in January 2018, hypertension, COPD, dyslipidemia, history of tobacco abuse, who presents to the emergency room for difficulty breathing. The patient reports he was last discharged 2 weeks ago and feeling better up until 4 to 5 days ago. He describes it as "it got bad" despite using his inhaler one time per day. He reports dyspnea on exertion with about 5 steps, orthopnea, sleeping in a chair, and just general difficulty breathing. He denies any fevers or chills. Denies any cough. Denies nausea or vomiting. He does endorse abdominal pain, bloating, and early satiety. There were no precipitating factors or relieving factors. In the emergency room, the patient found to have decompensated heart failure, received 40 mg of IV Lasix and 324 mg of aspirin, and hospitalist called for admission. PAST MEDICAL HISTORY: 1. Coronary artery disease with history of CABG and followed by redo in January 2018. 2. Systolic heart failure and severe ischemic cardiomyopathy with EF estimated at 25% to 30% back in March 2018. 3. Dyslipidemia. 4. Hypertension. 5. Gout. 6. COPD. PAST SURGICAL HISTORY: CABG with redo in January 2018. SOCIAL HISTORY: The patient lives alone. His surrogate is his neighbor, Lis , phone #[phone]. He denies any tobacco since his last surgery in January. Per his last discharge summary, alcohol is noted. The patient is do not attempt resuscitation. I confirmed this with him and reviewed on his last documentation. FAMILY HISTORY: Significant for mom who of heart problems. ALLERGIES: PENICILLIN. REVIEW OF SYSTEMS: Positive for abdominal pain and bloating. Negative for nausea, vomiting, urine changes, diarrhea, cough, fevers, or chills. All remaining review of systems are reviewed and negative. MEDICATIONS: Reviewed with patient his last discharge summary meds: 1. Medrol dose pack - completed 2. Senna-S 1 tab BID prn constipation 3. Albuterol neb prn 4. Aspirin 81 mg daily 5. Atorvastatin 40 mg bedtime 6. Carvedilol 6.25 mg BID - thinks he ran out of this 7. Lisinopril 5 mg BID 8. Furosemid 20 mg daily 9. Duoneb twice daily PHYSICAL EXAMINATION: VITAL SIGNS: Blood pressure 137/86, temperature 97.6, pulse 92, respirations 16 , saturations 99% on 2 L. GENERAL: In general, the patient is awake, alert, responsive, appears uncomfortable with his breathing. He is not in extreme distress. He does appear cachectic. HEENT: Oral mucosa is pink and dry. NECK: Supple, nontender. LYMPHATICS: No palpable cervical or supraclavicular lymphadenopathy. LUNGS: He has expiratory wheezing throughout. Fair air movement with bibasilar rales. HEART: Normal S1 and S2. Regular rate and rhythm. No significant murmur. ABDOMEN: Soft with present bowel sounds, nontender, nondistended. EXTREMITIES: No clubbing, cyanosis, or any edema. SKIN: He has ecchymosis along his right upper extremity that he reports was from being around his dog. LABORATORY DATA: CBC; 9.6, 14.8, 45.3, 148. Chemistry; 142, 4.4, 109, 19, 29, 1.34, 109. Calcium is 9.3. T bilirubin 2.3, AST 41, ALT 71, alkaline phosphatase 111, total protein 6.5, albumin 3.6. Troponin 0.022 to 0.023. BNP 6892. Lactic acid 1.6. EKG is personally reviewed, sinus rhythm, normal axis, prolonged QT with a QT corrected of 496 and abnormal R-wave progression. No ST changes. Chest x-ray personally reviewed. Decompensated heart failure. COPD and small pleural effusion and bilateral pleural effusions. His echo from December 2017 shows an EF of 25% to 30%, severe TR, and moderate AR. IMPRESSION: 1. Acute decompensated systolic heart failure in a patient with a known severe ischemic cardiomyopathy. 2. Chronic obstructive pulmonary disease, likely with exacerbation. 3. Hypertension. 4. Dyslipidemia. 5. Protein-calorie malnutrition, appears severe. 6. Chronic kidney disease based on chart review, stage 2-3. PLAN: 1. Admission to the hospital. 2. We will continue IV furosemide for diuresis and symptomatic improvement, echo and Cardiology consult. 3. I will continue the daily aspirin and statin. We will hold on beta-nick as the patient reports that he has ran out of this, in the context of decompensated heart failure. He is stable. 4. We will continue the lisinopril with hold parameters. 5. We will schedule DuoNeb. We will start steroids for the COPD. There is no indication for antibiotics. 6. DVT prophylaxis. We will use heparin. 7. GI prophylaxis not indicated. 8. His code status is do not attempt resuscitation and this was discussed and confirmed with the patient. His surrogate decision maker is noted above. 9. Reviewed the plan of care with the patient, who demonstrates understanding. No questions or further needs. 10. The patient is at high risk given age comorbidities and current presentation. Job ID: [id number] [facility]
[2018-10-19] MEDS ORDERED: Furosemide 40 MG/4 ML VIAL SLOW IVP SCH (19:00)
[2018-10-19 20:18] LABS: Troponin I 0.014 ng/mL (< 0.028)
[2018-10-19] MEDS ORDERED: Lisinopril 5 MG TAB PO SCH (21:00)
[2018-10-19] MEDS: Atorvastatin Calcium 40 MG TAB PO SCH (21:17)
[2018-10-19] MEDS: Heparin 5,000 UNITS/ML VIAL SC SCH ×2 (21:18→21:25)
[2018-10-20] MEDS: methylPREDNISolone Sod Succ 40 MG VIAL IVP SCH ×4 (00:08→16:56)
[2018-10-20] MEDS: Furosemide 40 MG/4 ML VIAL SLOW IVP SCH ×2 (06:23→16:56)
[2018-10-20 08:30] LABS: #Lymphocytes 0.8 thou/uL (1.20-3.40); #Monocytes 0.3 thou/uL (0.11-0.59); #Neutrophils 6.1 thou/uL (1.40-6.50); %Basophils 0.2 % (0.0-1.0); %Eosinophils 0.2 % (0.0-10.0); %Lymphocytes 11.5 % (21.0-51.0); %Monocytes 4.3 % (0.0-10.0); %Neutrophils 83.9 % (42.0-75.0); Hemoglobin 13.7 g/dL (14.0-18.0); Mean Corpuscular HGB CONC 32.2 g/dL (32.0-36.0); Mean Corpuscular Hemoglobin 30.8 pg (27.0-31.0); Mean Corpuscular Volume 95.5 fL (78.0-98.0); Mean Platelet Volume 9.4 fL (7.4-10.4); Platelet Count 143 thou/uL (130-400); RBC Distribution Width 15.3 % (11.5-14.5); Red Blood Cell (RBC) Count 4.47 mill/uL (4.70-6.10); White Blood Cell (WBC) Count 7.2 thou/uL (4.8-10.8)
[2018-10-20 08:47] LABS: Anion Gap 13 mmol/L (10-20); BUN (Urea Nitrogen) 25 mg/dL (8.4-25.7); Calc. Creatinine Clearance 41 mL/min (70-130); Calcium 8.9 mg/dL (7.8-10.44); Carbon Dioxide 25 mmol/L (23-31); Chloride 103 mmol/L (98-107); Estimated GFR-MDRD 56; Glucose 149 mg/dL (83-110); Magnesium 1.8 mg/dL (1.6-2.6); Potassium 3.3 mmol/L (3.5-5.1); Sodium 138 mmol/L (136-145)
[2018-10-20] MEDS: Heparin 5,000 UNITS/ML VIAL SC SCH ×2 (09:17→20:13)
[2018-10-20] MEDS: Aspirin 81 mg Enteric Coated Tablet PO SCH (09:18)
--- NOTE | 2018-10-20 09:41 | PDOC.PN ---
- Subjective Encounter Start Date: 10/20/18 (f/u dyspnea) Encounter Start Time: 09:38 Subjective: Pt reports some improvement in breathing, continues to feel short of -: breath. Denies any pain. - Objective Resuscitation Status - Order Detail: 10/19/18 17:34 Resuscitation Status Routine Resuscitation Status: DNAR: NO Resuscitation Discussed with: confirmed with patient Additional comments: who reports this is on file at this hospital and is consistent with his last admission documentation Vital Signs & Weight: Vital Signs (12 hours) Temp Pulse Resp BP Pulse Ox 10/20/18 07:47 97.8 F 80 18 114/71 95 10/20/18 07:21 77 18 98 10/20/18 03:35 97.7 F 85 18 117/78 96 10/20/18 02:32 81 16 94 L Weight Weight 117 lb 8 oz I&O: 10/19/18 10/20/18 10/21/18 06:59 06:59 06:59 Intake Total 1250 260 Output Total 2575 Balance -1325 260 Result Diagrams: 10/20/18 08:17 10/20/18 08:17 EKG Reviewed by me: Yes (tele - [id number] with 15 beats of VT) Phys Exam - Physical Examination Constitutional: NAD cachectic bibasilar rales, fair air movement, no audible wheezing Cardiovascular: RRR 2/6 FELIPE throughout Gastrointestinal: soft, non-tender, no distention, positive bowel sounds Musculoskeletal: no edema Neurological: non-focal, moves all 4 limbs Psychiatric: normal affect Dx/Plan (1) Systolic heart failure Code(s): I50.20 - UNSPECIFIED SYSTOLIC (CONGESTIVE) HEART FAILURE Status: Acute Qualifiers: Heart failure chronicity: acute on chronic Qualified Code(s): I50.23 - Acute on chronic systolic (congestive) heart failure (2) COPD (chronic obstructive pulmonary disease) Status: Acute Qualifiers: COPD type: COPD with acute exacerbation Qualified Code(s): J44.1 - Chronic obstructive pulmonary disease with (acute) exacerbation (3) Hypertension Code(s): I10 - ESSENTIAL (PRIMARY) HYPERTENSION Status: Chronic Qualifiers: Hypertension type: essential hypertension Qualified Code(s): I10 - Essential (primary) hypertension (4) Malnutrition Code(s): E46 - UNSPECIFIED PROTEIN-CALORIE MALNUTRITION Status: Chronic Qualifiers: Malnutrition type: protein-calorie malnutrition Protein-calorie malnutrition severity: severe Qualified Code(s): E43 - Unspecified severe protein-calorie malnutrition (5) Dyslipidemia Code(s): E78.5 - HYPERLIPIDEMIA, UNSPECIFIED Status: Chronic (6) CKD (chronic kidney disease) Code(s): N18.9 - CHRONIC KIDNEY DISEASE, UNSPECIFIED Status: Chronic Qualifiers: Chronic kidney disease stage: stage 2 (mild) Qualified Code(s): N18.2 - Chronic kidney disease, stage 2 (mild) - Plan * some sx improvement * Acute decompensated HF - cont IV diuresis, shady-i. Beta-nick held as pt reports running out of this medication at home - will restart given the VT on tele and replace potassium * echo and cards consult * COPD with exacerbation - continue steroids, nebs, no indication for abx * continue other home meds as ordered. * * dvt prophy - heparin - RN reports pt refusing * gi prophy - not indicated * code status DNAR * * pt remains at high risk in current condition. Reviewed plan of care with patient, no questions or further needs at end of eval.
[2018-10-20] MEDS ORDERED: Potassium Chloride 20 MEQ TAB PO SCH (09:45)
[2018-10-20] MEDS ORDERED: Carvedilol 6.25 MG TAB PO SCH (09:45)
--- NOTE | 2018-10-20 15:58 | CON ---
DATE OF CONSULTATION: 10/20/2018 REASON FOR CONSULTATION: Heart failure. PRIMARY SVP CHIEF MARKETING OFFICER: Ramon Pak MD HISTORY OF PRESENT ILLNESS: Mr. Muse is a pleasant 73-year-old white gentleman, who comes to the hospital for shortness of breath. He has been in and out of the hospital for the last few months for same reason. He has a history of ischemic cardiomyopathy with an EF of 25%. He had a bypass in the past and more recently in January 2018. He had a redo bypass secondary to multivessel disease. He is followed by Dr. Pak. However, he is very noncompliant with the medications, and he has stopped taking them at times and continues to smoke and drink. He also has COPD. He comes in with a very elevated BNP and severely short of breath. He was started on Lasix and admitted for this. Cardiology is being consulted for this as well as having had a run of nonsustained VT on the monitor. This is monomorphic VT. PAST MEDICAL HISTORY: 1. Coronary artery disease, status post CABG as above. 2. Hyperlipidemia. 3. COPD. 4. Ischemic cardiomyopathy with an EF of 25%. 5. Noncompliance. 6. Alcohol abuse. 7. Tobacco abuse. OUTPATIENT MEDICATIONS: 1. Albuterol inhaler. 2. DuoNebs. 3. Lasix 10 mg a day. 4. Coreg 6.25 b.i.d. 5. Lipitor 80 mg at bedtime. 6. Lisinopril 5 mg b.i.d. 7. Methylprednisolone 4 mg a day. ALLERGIES: PENICILLIN GIVES HIVES. PAST SURGICAL HISTORY: CABG once in 2017 and once before that. SOCIAL HISTORY: Smokes 1 or 2 packs a day for many years, now cut down to 1 pack. Drinks 6 packs of beer a day. No drugs. FAMILY HISTORY: Noncontributory. REVIEW OF SYSTEMS: A 12-point review of systems was done and was all negative unless stated in the history of present illness. PHYSICAL EXAMINATION: VITAL SIGNS: Temperature 97.8, pulse 80, respiratory rate 18, saturating 94% on room air, and blood pressure 97/63. GENERAL: Awake, alert, oriented x3, in no distress. HEENT: Normocephalic and atraumatic. NECK: Supple. LUNGS: Have reduced breath sounds bilaterally. CARDIOVASCULAR: S1 and S2. Distant HEART sounds. ABDOMEN: Soft. Positive bowel sounds. EXTREMITIES: Trace edema. SKIN: Warm and dry. LABORATORY DATA: Laboratory work was reviewed. BNP was 6892. Troponin negative x3. Potassium was 3.3, before it was 4.4. Normal BUN and creatinine. ASSESSMENT AND PLAN: 1. Acute on chronic systolic heart failure. 2. Severe ischemic cardiomyopathy. 3. Noncompliance. 4. Coronary artery disease, status post coronary artery bypass grafting. 5. Alcohol abuse. 6. Tobacco abuse. 7. Nonsustained ventricular tachycardia. 8. Hypokalemia. PLAN: 1. Replace potassium as it is most likely the cause of his VT. He does have the substrate of his ischemic cardiomyopathy for VT as well. He would be a candidate for an AICD. He is wanting to be DNR/DNI and currently he is telling me that he is not interested in an AICD. 2. Continue other medications right now. If he continues to have episodes of nonsustained VT after having replaced potassium, then I would load him on amiodarone. Thank you for allowing me to participate in the care of this patient. We will follow. Job ID: [id number]
[2018-10-20] MEDS: Potassium Chloride 20 MEQ TAB PO SCH (16:56)
[2018-10-20] MEDS: Carvedilol 6.25 MG TAB PO SCH (16:56)
[2018-10-20] MEDS: Atorvastatin Calcium 40 MG TAB PO SCH (20:14)
[2018-10-21] MEDS: methylPREDNISolone Sod Succ 40 MG VIAL IVP SCH ×2 (00:55→05:41)
[2018-10-21] MEDS: Furosemide 40 MG/4 ML VIAL SLOW IVP SCH (05:41)
[2018-10-21 06:01] LABS: Anion Gap 14 mmol/L (10-20); BUN (Urea Nitrogen) 37 mg/dL (8.4-25.7); Calc. Creatinine Clearance 39 mL/min (70-130); Calcium 8.5 mg/dL (7.8-10.44); Carbon Dioxide 24 mmol/L (23-31); Chloride 102 mmol/L (98-107); Estimated GFR-MDRD 54; Glucose 104 mg/dL (83-110); Potassium 4.2 mmol/L (3.5-5.1); Sodium 136 mmol/L (136-145)
[2018-10-21] MEDS: Aspirin 81 mg Enteric Coated Tablet PO SCH (08:50)
[2018-10-21] MEDS: Potassium Chloride 20 MEQ TAB PO SCH ×2 (08:50→17:15)
[2018-10-21] MEDS: Carvedilol 6.25 MG TAB PO SCH (08:51)
[2018-10-21] MEDS: Heparin 5,000 UNITS/ML VIAL SC SCH ×2 (08:51→21:23)
--- NOTE | 2018-10-21 10:35 | PDOC.PN ---
- Subjective Encounter Start Date: 10/21/18 (f/u systolic HF) Encounter Start Time: 10:33 Subjective: Pt reports some difficulty breathing this morning that responded to a neb -: denies any cp/n/v/abd pain -: he reports wanting an AICD - Objective Resuscitation Status - Order Detail: 10/19/18 17:34 Resuscitation Status Routine Resuscitation Status: DNAR: NO Resuscitation Discussed with: confirmed with patient Additional comments: who reports this is on file at this hospital and is consistent with his last admission documentation Vital Signs & Weight: Vital Signs (12 hours) Temp Pulse Resp BP BP Pulse Ox 10/21/18 08:51 90/58 L 10/21/18 08:00 97.7 F 64 18 90/58 L 92 L 10/21/18 07:00 70 12 10/21/18 03:06 98.2 F 69 15 95/61 92 L Weight Weight 119 lb I&O: 10/20/18 10/21/18 10/22/18 06:59 06:59 06:59 Intake Total 1250 1940 Output Total 2575 2550 Balance -1325 -610 Result Diagrams: 10/20/18 08:17 10/21/18 05:06 EKG Reviewed by me: Yes (tele - sinus 60's) Phys Exam - Physical Examination Constitutional: NAD cachectic Respiratory: no wheezing, no rales, no rhonchi improved air movement Cardiovascular: RRR, no significant murmur Gastrointestinal: soft, non-tender, no distention, positive bowel sounds Musculoskeletal: no edema Neurological: non-focal, moves all 4 limbs Psychiatric: normal affect Skin: no rash Dx/Plan (1) Systolic heart failure Code(s): I50.20 - UNSPECIFIED SYSTOLIC (CONGESTIVE) HEART FAILURE Status: Acute Qualifiers: Heart failure chronicity: acute on chronic Qualified Code(s): I50.23 - Acute on chronic systolic (congestive) heart failure (2) COPD (chronic obstructive pulmonary disease) Status: Acute Qualifiers: COPD type: COPD with acute exacerbation Qualified Code(s): J44.1 - Chronic obstructive pulmonary disease with (acute) exacerbation (3) Hypertension Code(s): I10 - ESSENTIAL (PRIMARY) HYPERTENSION Status: Chronic Qualifiers: Hypertension type: essential hypertension Qualified Code(s): I10 - Essential (primary) hypertension (4) Malnutrition Code(s): E46 - UNSPECIFIED PROTEIN-CALORIE MALNUTRITION Status: Chronic Qualifiers: Malnutrition type: protein-calorie malnutrition Protein-calorie malnutrition severity: severe Qualified Code(s): E43 - Unspecified severe protein-calorie malnutrition (5) Dyslipidemia Code(s): E78.5 - HYPERLIPIDEMIA, UNSPECIFIED Status: Chronic (6) CKD (chronic kidney disease) Code(s): N18.9 - CHRONIC KIDNEY DISEASE, UNSPECIFIED Status: Chronic Qualifiers: Chronic kidney disease stage: stage 2 (mild) Qualified Code(s): N18.2 - Chronic kidney disease, stage 2 (mild) - Plan * appears improved today - improved air movement * * Acute decompensated HF - * appreciate Cards consult * will lower lasix to daily given low bp's * hold parameters and lowering of both carvedilol and lisinopril * potassium replaced and normal * monitor creatinine - slightly elevated * COPD with exacerbation - lower IV steroids, continue nebs, no indication for abx * continue other home meds as ordered. * * dvt prophy - heparin - RN reports pt refusing * gi prophy - not indicated * code status DNAR. Discussed this with patient - what this code status means, how the device works, and he still desires to remain DNAR in the hospital. He demonstrates understanding of the device, that it will shock his heart should it be in an abnormal/potentially lethal rhythm, but does not want hospital personnel to shock him. * * Appreciate Palliative care meeting with patient to discuss goals of care. * * pt remains at high risk in current condition. Reviewed plan of care with patient, no questions or further needs at end of eval..
[2018-10-21] MEDS: Carvedilol 3.125 MG TAB PO SCH (17:14)
[2018-10-21] MEDS ORDERED: methylPREDNISolone Sod Succ 40 MG VIAL IVP SCH (21:00)
[2018-10-21] MEDS: Lisinopril 5 MG TAB PO SCH (21:22)
[2018-10-21] MEDS: Atorvastatin Calcium 40 MG TAB PO SCH (21:23)
--- NOTE | 2018-10-21 21:31 | CON ---
DATE OF CONSULTATION: 10/21/2018 HISTORY OF PRESENT ILLNESS: I am seeing Mr. 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 Chronic systolic congestive heart failure with ischemic cardiomyopathy. a. Status post redo CABG in January 2018 and original bypass surgery x3 vessels about 5 years ago. b. Chronically reduced LVEF. Most recent echo on 10/19/2017, showing LVEF 20% to 25%, moderate AI, mild , moderate TR, mild MR. 2. Nonsustained ventricular tachycardia on telemetry. 3. COPD, smoking-related bronchitis. 4. History of hypertension and dyslipidemia. ALLERGIES: PENICILLIN. MEDICATIONS: At home included: 1. Medrol Dosepak. 2. Senna S for constipation. 3. Albuterol. 4. Aspirin. 5. Lipitor. 6. Carvedilol 6.25 mg twice a day. 7. Lisinopril. 8. Furosemide. 9. DuoNeb twice a day. SUBJECTIVE: Mr. Muse is here admitted with progressive dyspnea on the 19 of October. He was diuresed and pulmonary status stabilized with DuoNeb/steroids. He is feeling better now, still has some wheeze. He denies chest pains. No sensation of palpitation. Does not admit passing out. He has no stroke-like symptoms. No neurological deficits. No fever, chills, or cough. He is NYHA class 3 functional status. Currently, denies PND or orthopnea either. No lower extremity edema. Rest of 12-point review of system otherwise unremarkable. PAST MEDICAL HISTORY: As above. Also history of gout. SOCIAL HISTORY: The patient lives alone. Denies smoking since January. There is a remote history of alcohol use as well. Does not use drugs. FAMILY HISTORY: Significant for mother who of heart problems. OBJECTIVE DATA: VITAL SIGNS: Blood pressure is 105/68, heart rate 68, respirations 20, temperature is 98.1 degrees Fahrenheit. GENERAL: Alert and oriented man, in no apparent distress. NECK: Supple. Jugular veins not distended. CHEST: Coarse with wheezes, few crackles. HEART: Sounds are regular to rate and rhythm. 1/6 systolic ejection murmur is heard. Soft diastolic murmur is also noted. PMI is laterally displaced. ABDOMEN: Benign. Bowel sounds positive. EXTREMITIES: Lower extremities without edema, clubbing, or cyanosis. Pulses are adequate. NEUROLOGICAL: Nonfocal. MUSCULOSKELETAL: No joint swelling or deformities. SKIN: Without rash. DATABASE: EKG is reviewed. Initial EKG reveals sinus rhythm, rate of 91 beats per minute, narrow QRS at 108 milliseconds, QTc 496 milliseconds. LABORATORY DATA: White blood cell count 7.2, hemoglobin 13.7, platelet count is 143. Sodium 136, potassium 4.2, BUN is 37, creatinine 1.31. Troponin I 0.02 to 0.023 and 0.014 consecutively. ASSESSMENT AND PLAN: 1. Mr. Muse is a pleasant 73-year-old man with prior history of coronary artery disease, recent redo bypass surgery last year. Despite the LVEF is severely depressed, he has nonsustained ventricular tachyarrhythmia and he is clearly at risk for future possible malignant ventricular arrhythmias. We discussed the use of an ICD as a primary prophylaxis for sudden cardiac . He understands the concept, also understands the procedure of the implant including the risk of infection, bleeding, pneumothorax, tamponade, device malfunctions, recalls. He is willing to proceed. We will schedule in the near time. 2. Chronic obstructive pulmonary disease. Under improving control. 3. Heart failure as per Dr. Pak. For now, continue current regimen. Job ID: [id number]
[2018-10-22] MEDS ORDERED: Clindamycin/D5W 900 MG in Premix Bag 1 BAG IVPB SCH (02:15)
[2018-10-22 07:10] LABS: Anion Gap 12 mmol/L (10-20); BUN (Urea Nitrogen) 41 mg/dL (8.4-25.7); Calc. Creatinine Clearance 41 mL/min (70-130); Carbon Dioxide 28 mmol/L (23-31); Chloride 102 mmol/L (98-107); Estimated GFR-MDRD 56; Glucose 103 mg/dL (83-110); Potassium 4.2 mmol/L (3.5-5.1); Sodium 138 mmol/L (136-145)
[2018-10-22] MEDS ORDERED: Iopamidol 370 76% 50 ML VIAL FS ONE (07:53)
--- NOTE | 2018-10-22 08:11 | PDOC.PN ---
- Subjective Encounter Start Date: 10/22/18 (f/u systolic HF) Encounter Start Time: 08:08 Subjective: Pt reports feeling better today. Denies any chest pain. Reports breathing -: is easier. Denies any complaints. Is awaiting AICD today. - Objective Resuscitation Status - Order Detail: 10/19/18 17:34 Resuscitation Status Routine Resuscitation Status: DNAR: NO Resuscitation Discussed with: confirmed with patient Additional comments: who reports this is on file at this hospital and is consistent with his last admission documentation Vital Signs & Weight: Vital Signs (12 hours) Temp Pulse Resp BP BP Pulse Ox 10/22/18 07:21 97.8 F 62 14 102/72 10/22/18 07:16 70 12 10/22/18 03:08 98.2 F 67 14 102/70 98 10/22/18 02:28 71 14 100 10/21/18 23:58 62 100/65 10/21/18 21:22 62 110/62 Weight Weight 119 lb 11.2 oz I&O: 10/21/18 10/22/18 10/23/18 06:59 06:59 06:59 Intake Total 1940 970 Output Total 2550 1110 Balance -610 -140 Result Diagrams: 10/20/18 08:17 10/22/18 05:48 EKG Reviewed by me: Yes (tele - sinus 60's, brief sinus 120's) Phys Exam - Physical Examination Constitutional: NAD Respiratory: no wheezing, no rhonchi faint bibasilar rales, improved air movement Cardiovascular: RRR, no significant murmur Gastrointestinal: soft, non-tender, no distention, positive bowel sounds Musculoskeletal: no edema Neurological: non-focal, moves all 4 limbs Psychiatric: normal affect Dx/Plan (1) Systolic heart failure Code(s): I50.20 - UNSPECIFIED SYSTOLIC (CONGESTIVE) HEART FAILURE Status: Acute Qualifiers: Heart failure chronicity: acute on chronic Qualified Code(s): I50.23 - Acute on chronic systolic (congestive) heart failure (2) COPD (chronic obstructive pulmonary disease) Status: Acute Qualifiers: COPD type: COPD with acute exacerbation Qualified Code(s): J44.1 - Chronic obstructive pulmonary disease with (acute) exacerbation (3) Hypertension Code(s): I10 - ESSENTIAL (PRIMARY) HYPERTENSION Status: Chronic Qualifiers: Hypertension type: essential hypertension Qualified Code(s): I10 - Essential (primary) hypertension (4) Malnutrition Code(s): E46 - UNSPECIFIED PROTEIN-CALORIE MALNUTRITION Status: Chronic Qualifiers: Malnutrition type: protein-calorie malnutrition Protein-calorie malnutrition severity: severe Qualified Code(s): E43 - Unspecified severe protein-calorie malnutrition (5) Dyslipidemia Code(s): E78.5 - HYPERLIPIDEMIA, UNSPECIFIED Status: Chronic (6) CKD (chronic kidney disease) Code(s): N18.9 - CHRONIC KIDNEY DISEASE, UNSPECIFIED Status: Chronic Qualifiers: Chronic kidney disease stage: stage 2 (mild) Qualified Code(s): N18.2 - Chronic kidney disease, stage 2 (mild) - Plan * Acute decompensated HF - * appreciate Cards consult - reviewed Dr. Pak's note and see change to oral furosemide, do not see order, so made this change to once daily. * AICD anticipated for today * hold parameters and lowering of both carvedilol and lisinopril yesterday * potassium replaced and normal * monitor creatinine - improved * COPD with exacerbation - change to oral steroids, continue nebs, no indication for abx. Anticipate home oxygen * continue other home meds as ordered. * * dvt prophy - ambulatory * gi prophy - not indicated * code status DNAR. Pt unchanged here, even with AICD insertion today. * * Appreciate Palliative care meeting with patient to discuss goals of care. * * pt remains at high risk in current condition. Reviewed plan of care with patient, no questions or further needs at end of eval
[2018-10-22] MEDS ORDERED: Furosemide 40 MG/4 ML VIAL SLOW IVP SCH (09:00)
[2018-10-22] MEDS: Potassium Chloride 20 MEQ TAB PO SCH ×2 (09:14→17:16)
[2018-10-22] MEDS: Carvedilol 3.125 MG TAB PO SCH ×2 (09:14→16:19)
[2018-10-22] MEDS ORDERED: Levofloxacin 500 mg/D5W 100 ml Premix Bag ONE (09:30)
[2018-10-22] MEDS ORDERED: Clindamycin/D5W 600 mg/50 ml Premix Bag ONE (09:30)
[2018-10-22] MEDS ORDERED: Fentanyl 100 MCG/2 ML VIAL ONE (09:55)
[2018-10-22] MEDS ORDERED: Propofol 500 MG/50 ML VIAL ONE (09:55)
[2018-10-22] MEDS ORDERED: Midazolam HCl 2 mg/2 ml Vial ONE (09:55)
[2018-10-22] MEDS ORDERED: HYDROcodone/Acetaminophen 5/325 mg Tablet PO PRN ×2 (12:15)
--- NOTE | 2018-10-22 12:26 | RAD ---
RADIOGRAPH CHEST 1 VIEW: DATE: 10/22/2018 TIME: 11:57 AM HISTORY: Status post ICD placement 73-year-old male COMPARISON: 10/19/2018 FINDINGS: New single lead left subclavian transvenous AICD with lead tip overlying expected location of right v entricle. Cardiomegaly unchanged. Right lower lobe infiltrate or atelectasis, unchanged. Small right pleural effusion, unchanged. Signs of previous CABG. No pneumothorax. Interval improvement in p ulmonary interstitial edema. IMPRESSION: 1. Interval placement of single lead automatic implantable cardioverter-defibrillator without pneumot horax. 2. Interval improvement in the pulmonary interstitial edema. 3. Cardiomegaly remains. 4. No interval change in small right pleural effusion and adjacent probable atelectasis at right lowe r lobe.
[2018-10-22] MEDS: Lisinopril 5 MG TAB PO SCH (13:22)
[2018-10-22] MEDS: Clindamycin/D5W 600 MG in Premix Bag 1 BAG IVPB SCH ×2 (13:34→19:59)
[2018-10-22] MEDS: Aspirin 81 mg Enteric Coated Tablet PO SCH (13:41)
[2018-10-22] MEDS: Furosemide 20 MG TAB PO SCH (13:42)
[2018-10-22] MEDS: predniSONE 20 MG TAB PO SCH (13:43)
[2018-10-22 15:30] LABS: #Neutrophils 8.1 thou/uL (1.40-6.50); %Basophils 0.1 % (0.0-1.0); %Eosinophils 0.1 % (0.0-10.0); %Lymphocytes 10.2 % (21.0-51.0); %Monocytes 9.8 % (0.0-10.0); %Neutrophils 79.8 % (42.0-75.0); Mean Corpuscular HGB CONC 31.8 g/dL (32.0-36.0); Mean Corpuscular Volume 97.4 fL (78.0-98.0); Mean Platelet Volume 9.6 fL (7.4-10.4); Platelet Count 122 thou/uL (130-400); RBC Distribution Width 15.1 % (11.5-14.5); White Blood Cell (WBC) Count 10.2 thou/uL (4.8-10.8)
[2018-10-22 15:36] LABS: INR-International Normal Ratio 1.2; Prothrombin Time 15.4 SEC (12.0-14.7)
[2018-10-22] MEDS ORDERED: Sodium Chloride 0.9% 250 ML IV SCH (15:45)
[2018-10-22] MEDS: Atorvastatin Calcium 40 MG TAB PO SCH (19:59)
[2018-10-23] MEDS: Clindamycin 150 MG CAP PO SCH ×3 (05:13→20:23)
[2018-10-23 05:30] LABS: Anion Gap 14 mmol/L (10-20); BUN (Urea Nitrogen) 46 mg/dL (8.4-25.7); Calc. Creatinine Clearance 38 mL/min (70-130); Calcium 8.5 mg/dL (7.8-10.44); Carbon Dioxide 23 mmol/L (23-31); Chloride 104 mmol/L (98-107); Estimated GFR-MDRD 50; Glucose 107 mg/dL (83-110); Potassium 5.1 mmol/L (3.5-5.1); Sodium 136 mmol/L (136-145)
[2018-10-23] MEDS: Potassium Chloride 20 MEQ TAB PO SCH (08:27)
[2018-10-23] MEDS: Furosemide 20 MG TAB PO SCH (08:28)
[2018-10-23] MEDS: Aspirin 81 mg Enteric Coated Tablet PO SCH (08:28)
[2018-10-23] MEDS: predniSONE 20 MG TAB PO SCH (08:29)
[2018-10-23] MEDS: Carvedilol 3.125 MG TAB PO SCH ×2 (08:32→16:48)
[2018-10-23] MEDS ORDERED: Lisinopril 2.5 MG TAB PO SCH (09:00)
--- NOTE | 2018-10-23 09:57 | PDOC.PN ---
- Subjective Encounter Start Date: 10/23/18 (f/u dyspnea) Encounter Start Time: 09:55 Subjective: Pt feeling more short of breath,has been up and walking around -: states he is tired of laying in bed. Denies any n/v -: s/p AICD placement yesterday - Objective Resuscitation Status - Order Detail: 10/19/18 17:34 Resuscitation Status Routine Resuscitation Status: DNAR: NO Resuscitation Discussed with: confirmed with patient Additional comments: who reports this is on file at this hospital and is consistent with his last admission documentation Vital Signs & Weight: Vital Signs (12 hours) Temp Pulse Resp BP Pulse Ox 10/23/18 07:30 97 10/23/18 07:28 75 16 100 10/23/18 07:25 97.2 F L 73 20 114/82 100 10/23/18 03:52 97.9 F 69 22 H 107/71 96 10/23/18 01:49 67 18 97 10/22/18 23:31 63 90/58 L 10/22/18 23:06 62 18 100 Weight Weight 121 lb 9.6 oz I&O: 10/22/18 10/23/18 10/24/18 06:59 06:59 06:59 Intake Total 970 1060 Output Total 1110 250 Balance -140 810 Result Diagrams: 10/22/18 15:22 10/23/18 20:10 EKG Reviewed by me: Yes (tele - sinus 60-70's) Phys Exam - Physical Examination Constitutional: NAD Respiratory: no wheezing, no rales, no rhonchi fair air movement Cardiovascular: RRR, no significant murmur Gastrointestinal: soft, non-tender, no distention, positive bowel sounds Musculoskeletal: no edema Dx/Plan (1) Systolic heart failure Code(s): I50.20 - UNSPECIFIED SYSTOLIC (CONGESTIVE) HEART FAILURE Status: Acute Qualifiers: Heart failure chronicity: acute on chronic Qualified Code(s): I50.23 - Acute on chronic systolic (congestive) heart failure (2) COPD (chronic obstructive pulmonary disease) Status: Acute Qualifiers: COPD type: COPD with acute exacerbation Qualified Code(s): J44.1 - Chronic obstructive pulmonary disease with (acute) exacerbation (3) Hypertension Code(s): I10 - ESSENTIAL (PRIMARY) HYPERTENSION Status: Chronic Qualifiers: Hypertension type: essential hypertension Qualified Code(s): I10 - Essential (primary) hypertension (4) Malnutrition Code(s): E46 - UNSPECIFIED PROTEIN-CALORIE MALNUTRITION Status: Chronic Qualifiers: Malnutrition type: protein-calorie malnutrition Protein-calorie malnutrition severity: severe Qualified Code(s): E43 - Unspecified severe protein-calorie malnutrition (5) Dyslipidemia Code(s): E78.5 - HYPERLIPIDEMIA, UNSPECIFIED Status: Chronic (6) CKD (chronic kidney disease) Code(s): N18.9 - CHRONIC KIDNEY DISEASE, UNSPECIFIED Status: Chronic Qualifiers: Chronic kidney disease stage: stage 2 (mild) Qualified Code(s): N18.2 - Chronic kidney disease, stage 2 (mild) - Plan * * Acute decompensated HF - * appreciate Cards consult - reviewed Dr. Pak's note and PM lisinopril d/c , continuing low dose beta-nick and daily lisinopril (held today due to bp) * potassium at high end of normal - d/c replacement and recheck this afternoon * cotninue oral lasix * monitor creatinine - improved * on abx for AICD * COPD with exacerbation - continue oral steroids, continue nebs, no indication for abx for this reason. Anticipate home oxygen * continue other home meds as ordered. * * dvt prophy - ambulatory * gi prophy - not indicated * code status DNAR. * * pt remains at high risk in current condition. Reviewed plan of care with patient, no questions or further needs at end of eval. * anticipate still a few days from discharge to optimize breathing. May benefit from SNF 21:00/Potassium this afternoon was 5.4. I ordered kaexylate, IV lasix 20 mg, and d/c lisinopril. Discussed with Dr. Pak. Repeat potassium this evening is now in normal range. Continue monitoring renal function in light of systolic heart failure, diuresis, and low/low-normal blood pressures. Pt is on a low potassium diet for now.
--- NOTE | 2018-10-23 11:55 | PDOC.CTH ---
Cardiology Progress Note - Subjective EP PROGRESS NOTE: 10/23/18 Seen as follow up after ICD placement. Had some asymptomatic hypotension yesterday afternoon. + ongoing SOB, orthopnea, fluid retention, slight swelling at ICD implant site so pressure dressing placed on 10/22 -CP, dizziness, passing out, productive cough - Objective Vital Signs Temp Pulse Resp BP Pulse Ox 10/23/18 09:59 73 18 98 10/23/18 07:30 97 10/23/18 07:28 75 16 100 10/23/18 07:25 97.2 F L 73 20 114/82 100 10/23/18 03:52 97.9 F 69 22 H 107/71 96 10/23/18 01:49 67 18 97 Weight 121 lb 9.6 oz 10/22/18 10/23/18 10/24/18 06:59 06:59 06:59 Intake Total 970 1060 Output Total 1110 250 Balance -140 810 - Physical Examination General/Neuro: alert & oriented x3, NAD Neck: carotid US brisk, no JVD present Lungs: other: (Orthopnea, BL crackles to bases) Heart: RRR Abdomen: NT/ND, soft Other PE findings: ICD implant site, mild bruising/swelling. stable - Telemetry Telemetry Rhythm: SR - Labs Result Diagrams: 10/22/18 15:22 10/23/18 04:15 Troponin/CKMB Troponin I 0.014 ng/mL (< 0.028) 10/19/18 19:35 - Assessment/Plan 1. Single chamber ICD - medtronic implant 10/22/18 - post implant CXR stable - slight swelling/bruising at implant site 2. A/C systolic HFrEF, EF 20-25% - fluid overload on admission +SOB - lasix as tolerated but having chronic hypotension issues -managed by cardiology 3. COPD 4. NSVT CXR ordered for today, 1 day post ICD implant. Continue clindamycin x 7 days as ordered. will need 2 week wound check with TCA arranged. EP signing off.
--- NOTE | 2018-10-23 14:38 | RAD ---
AP CHEST: Date: 10/23/18 INDICATION: Post ICD. COMPARISON: 10/22/18. FINDINGS/IMPRESSION: Single AICD lead is again noted. Cardiomegaly with postop sternotomy changes again noted. Streaky ate lectasis or infiltrate in the right mid lung is more prominent today. Lungs otherwise are clear and u nchanged. POS: OFF
[2018-10-23 15:16] LABS: Potassium 5.4 mmol/L (3.5-5.1)
--- NOTE | 2018-10-23 16:10 | PDOC.EVN ---
Event Note - Event Note Event Note: Potassium level is 5.4 now - will order 1 dose of kayexelate now and recheck in 4 hours.
[2018-10-23] MEDS ORDERED: Furosemide 20 MG/2 ML VIAL SLOW IVP SCH (16:15)
[2018-10-23] MEDS: Atorvastatin Calcium 40 MG TAB PO SCH (20:24)
[2018-10-23 20:42] LABS: Potassium 4.6 mmol/L (3.5-5.1)
[2018-10-24] MEDS: Clindamycin 150 MG CAP PO SCH ×2 (05:25→13:25)
[2018-10-24 05:32] LABS: Anion Gap 14 mmol/L (10-20); BUN (Urea Nitrogen) 49 mg/dL (8.4-25.7); Calc. Creatinine Clearance 38 mL/min (70-130); Calcium 8.7 mg/dL (7.8-10.44); Carbon Dioxide 21 mmol/L (23-31); Chloride 105 mmol/L (98-107); Estimated GFR-MDRD 51; Glucose 109 mg/dL (83-110); Potassium 4.3 mmol/L (3.5-5.1); Sodium 136 mmol/L (136-145)
[2018-10-24] MEDS: Aspirin 81 mg Enteric Coated Tablet PO SCH (09:20)
[2018-10-24] MEDS: Carvedilol 3.125 MG TAB PO SCH ×2 (09:20→16:02)
[2018-10-24] MEDS: Furosemide 20 MG TAB PO SCH (09:20)
[2018-10-24] MEDS: predniSONE 20 MG TAB PO SCH (09:21)
[2018-10-24] MEDS: Ondansetron PF 4 MG/2 ML Vial IVP PRN ×2 (09:21→13:25)
--- NOTE | 2018-10-24 15:26 | PDOC.CTH ---
Cardiology Progress Note - Subjective The pt seen and examined. No overnight events. No cardiac complaints. - Objective Vital Signs Temp Pulse Pulse Pulse Resp BP BP 10/24/18 14:54 68 16 10/24/18 11:46 98.3 F 68 16 10/24/18 11:23 74 12 10/24/18 11:04 75 74 104/66 104/67 10/24/18 08:01 10/24/18 07:57 98.4 F 76 16 10/24/18 04:08 97.8 F 74 18 BP Pulse Ox Pulse Ox Pulse Ox 10/24/18 14:54 10/24/18 11:46 107/72 96 10/24/18 11:23 10/24/18 11:04 94 L 97 10/24/18 08:01 99 10/24/18 07:57 128/87 99 10/24/18 04:08 117/79 93 L Weight 121 lb 10/23/18 10/24/18 10/25/18 06:59 06:59 06:59 Intake Total 1060 120 Output Total 250 Balance 810 120 - Physical Examination General/Neuro: alert & oriented x3 Neck: no JVD present Lungs: other: (very diminished at bases) Heart: RRR Abdomen: soft Extremities: other: (No edema) - Telemetry Telemetry Rhythm: SR - Labs Result Diagrams: 10/22/18 15:22 10/24/18 04:52 Troponin/CKMB Troponin I 0.014 ng/mL (< 0.028) 10/19/18 19:35 - Assessment/Plan 1. Acute on Chronic Systolic HF with EF 20-25 in 2018 and EF 15-20% on 2018 - stable with RA; On Bblocker and Lasix; but no on EMERITA/ARB due to KENNETH and hypotensive 2. Ischemic CMY with s/p AICD placement on 10/22/2018 3. CAD with re-do CABG x3 in 01/2018 - stable; on bblocker, ASA, Statin; 4. HTN - stable 5. COPD - stable with RA; 6. Ex-smoker, quit in 01/2018 MAR reviewed Pt. seen and eval. by me. I agree with the A/P by the CONTROLS TECHNICIAN. We have discussed the pt. [email or web address] Review of Systems - Review of Systems Constitutional: reports: no symptoms reported EENTM: reports: no symptoms reported Respiratory: reports: no symptoms reported Cardiac (ROS): reports: no symptoms reported ABD/GI: reports: no symptoms reported : reports: no symptoms reported Musculoskeletal: reports: no symptoms reported
[2018-10-24 15:55] VITALS: BP 124/83; TEMP 98.1
--- NOTE | 2018-10-25 11:36 | DIS ---
DATE OF ADMISSION: 10/19/2018 DATE OF DISCHARGE: 10/24/2018 DIAGNOSES AT THE TIME OF DISCHARGE: 1. Systolic heart failure, acute on chronic. 2. Chronic obstructive pulmonary disease exacerbation. 3. Hypertension. 4. Chronic protein calorie malnutrition, severe. 5. Dyslipidemia, chronic. 6. Chronic kidney disease, chronic. 7. Status post AICD placement. 8. Hyperkalemia, corrected. CONSULTANTS: 1. Dr. Alcides Self, Cardiology Service. 2. Dr. Vitaliy Balderrama, Electrophysiology Service. HOSPITAL COURSE: The patient is a 73-year-old male, who was admitted to the hospital with shortness of breath any cough, fever or chills, nausea, vomiting. He has some abdominal discomfort and bloating and early satiety. In the emergency room, he was found to be in decompensated heart failure. He received IV Lasix and aspirin at the time of emergency room evaluation. His white count was 9.6, hemoglobin 14.8, hematocrit 45.3, and platelet count 148. Electrolytes were within normal limits. Creatinine was 1.34. Liver function test showed total bilirubin up to 2.3, ALT 71, alkaline phosphatase 111. Troponin was 0.022 and 0.023. BNP 6892. Lactic acid 1.6. EKG showed sinus rhythm, normal axis, prolonged QT with QT corrected at 496 and abnormal R-wave progression. No ST-T changes. Chest x-ray showed decompensated heart failure, COPD, small pleural effusion, bilateral pleural effusions. His echocardiogram apparently done in December 2017 showed LVEF of 25% to 30% with severe TR and moderate AR. The patient was admitted to the hospital, received IV Lasix. Cardiology consult was done and echocardiogram was requested. He was continued on aspirin and statin. His beta nick was put on hold. Subsequently, he was seen by Dr. Self for Cardiology consultation, who recommended to replace his electrolytes and since he felt that he would be a good candidate for AICD. Rehab Department Manager was called and Dr. Vitaliy Balderrama saw the patient and stated that there was nonsustained ventricular tachycardia on telemetry. Recommended ICD placement as a primary prophylaxis for sudden cardiac . This was done and the patient was placed on clindamycin. His blood pressure was running on the lower side, so his Coreg dose was decreased to half dose at 3.125 mg twice a day and Lasix was continued. Today, blood pressure is 107/72, pulse is 68, temperature is 98.3, respirations 16, O2 saturation is 96% on room air. He feels better. He is ready to go home. Activity at the time of discharge as tolerated. Diet, Heart-healthy plus low-salt. His potassium was elevated yesterday at 5.4, but it was corrected with Kayexalate, and potassium and lisinopril were stopped. His creatinine today is 1.37, which is basically at his baseline. He is going to take clindamycin 300 mg three times a day for the next 6 days. He will continue furosemide 40 mg once a day, prednisone 40 mg in 20 mg tablets two tablets for the next 2 days, then one tablet for the next 6 days, then half a tablet for the next 4 days; also he will continue carvedilol at 3.125 mg twice a day, aspirin 81 mg a day, atorvastatin 80 mg at bedtime, DuoNebs every 4 hours. He does not require any oxygen at this point. FOLLOWUP: He will follow up with his primary care physician in [place] in [address] Balderrama in 2 weeks. Also, he will follow up with his remote ruby on rails developer in 1 month. He will need to call Dr. Pak's office and set up followup appointment. TIME SPENT: Discharge time is more than 30 minutes. Job ID: [id number]
== END 2018-10-24 17:06 | disposition home or self-care (01) | DRG 245 ==
LOC: ERS 13:31 → 2NO 17:08
PROVIDERS: ADMIT Internal Medicine; ATTEND Internal Medicine
PROC: 0JH608Z Insertion of Defibrillator Generator into Chest Subcutaneous Tissue and Fascia, Open Approach (ICD-10-PCS; principal; 2018-10-22)
PROC: 0JH60PZ Insertion of Cardiac Rhythm Related Device into Chest Subcutaneous Tissue and Fascia, Open Approach (ICD-10-PCS; 2018-10-22)
PROC: 3E0102A Introduction of Anti-Infective Envelope into Subcutaneous Tissue, Open Approach (ICD-10-PCS; 2018-10-22)
DX: I13.0 Hypertensive heart and chronic kidney disease with heart failure and stage 1 through stage 4 chronic kidney disease, or unspecified chronic kidney disease (principal); I50.23 Acute on chronic systolic (congestive) heart failure; E43 Unspecified severe protein-calorie malnutrition; J44.1 Chronic obstructive pulmonary disease with (acute) exacerbation; R64 Cachexia; I47.1 Supraventricular tachycardia; N17.9 Acute kidney failure, unspecified; Z66 Do not resuscitate; I25.10 Atherosclerotic heart disease of native coronary artery without angina pectoris; E78.5 Hyperlipidemia, unspecified; N18.2 Chronic kidney disease, stage 2 (mild); I25.5 Ischemic cardiomyopathy; M10.9 Gout, unspecified; E87.6 Hypokalemia; I95.9 Hypotension, unspecified; Z95.1 Presence of aortocoronary bypass graft; Z87.891 Personal history of nicotine dependence; Z88.0 Allergy status to penicillin; Z79.899 Other long term (current) drug therapy; Z79.51 Long term (current) use of inhaled steroids; Z79.52 Long term (current) use of systemic steroids; Z68.21 Body mass index [BMI] 21.0-21.9, adult; I25.2 Old myocardial infarction; Z91.19 Patient's noncompliance with other medical treatment and regimen
CPT/HCPCS: 33240; 36005; 36415; 71045; 75820; 80048; 80053; 83605; 83735; 83880; 84484; 85025; 85610; 93005; 93306; 93798; 94640; 94760; 96374; J1644; J1940; J1956; J2250; J2405; J2704; J2920; J3010; J3490; J7512; J7620; Q9967

== ENCOUNTER 2018-11-21 15:45 | Inpatient (IN) | payer MEDICARE, MEDICAID ==
[2018-11-21 16:17] LABS: #Basophils 0.1 thou/uL (0.0-0.2); #Eosinphils 0.2 thou/uL (0.0-0.7); #Lymphocytes 1.7 thou/uL (1.20-3.40); #Monocytes 0.9 thou/uL (0.11-0.59); #Neutrophils 3.7 thou/uL (1.40-6.50); %Eosinophils 2.9 % (0.0-10.0); %Lymphocytes 25.9 % (21.0-51.0); %Monocytes 13.4 % (0.0-10.0); %Neutrophils 56.9 % (42.0-75.0); Hemoglobin 13.1 g/dL (14.0-18.0); Mean Corpuscular HGB CONC 34.3 g/dL (32.0-36.0); Mean Corpuscular Hemoglobin 32.9 pg (27.0-31.0); Mean Corpuscular Volume 95.7 fL (78.0-98.0); Mean Platelet Volume 8.8 fL (7.4-10.4); Platelet Count 192 thou/uL (130-400); RBC Distribution Width 15.5 % (11.5-14.5); Red Blood Cell (RBC) Count 3.99 mill/uL (4.70-6.10); White Blood Cell (WBC) Count 6.5 thou/uL (4.8-10.8)
--- NOTE | 2018-11-21 16:20 | RAD ---
Exam: Chest one view HISTORY:Chest pain. Shortness of breath with exertion Comparison: 10/23/2018 FINDINGS: Cardiac silhouette:Cardiomegaly. Atherosclerosis of the aorta. There are sternotomy wires. Stable sin gle lead left-sided defibrillator. Pulmonary vessels: Normal Costophrenic angles: Clear LUNGS: Hyperinflation, with chronic changes. No masses or consolidation. Pneumothorax: None Osseous abnormalities: None IMPRESSION: 1. Atherosclerosis 2. Hyperinflation. Chronic changes. 3. Cardiomegaly.
[2018-11-21 16:29] LABS: ALT (SGPT) 20 U/L (8-55); AST (SGOT) 23 U/L (5-34); Albumin 2.9 g/dL (3.4-4.8); Alkaline Phosphatase 120 U/L (40-150); Anion Gap 10 mmol/L (10-20); BUN (Urea Nitrogen) 17 mg/dL (8.4-25.7); Bilirubin, Total 1.3 mg/dL (0.2-1.2); Calc. Creatinine Clearance 0 mL/min (70-130); Calcium 8.5 mg/dL (7.8-10.44); Carbon Dioxide 24 mmol/L (23-31); Chloride 109 mmol/L (98-107); Estimated GFR-MDRD 75; Globulin 2.4 g/dL (2.4-3.5); Glucose 115 mg/dL (83-110); Potassium 3.5 mmol/L (3.5-5.1); Protein, Total 5.3 g/dL (5.8-8.1); Sodium 139 mmol/L (136-145)
[2018-11-21 16:52] LABS: CKMB 2.7 ng/mL (0-6.6)
[2018-11-21] MEDS ORDERED: Furosemide 40 MG/4 ML VIAL ONE (17:09)
[2018-11-21] MEDS ORDERED: Acetaminophen 325 MG TAB PO PRN (17:41)
[2018-11-21] MEDS ORDERED: Senokot S 8.6-50 MG TAB PO PRN (17:41)
[2018-11-21] MEDS ORDERED: Bisacodyl 5 MG TAB PO PRN (17:41)
[2018-11-21] MEDS ORDERED: Ipratropium Bromide 2.5 ml Neb NEB PRN (18:04)
[2018-11-21] MEDS: Ipratropium Bromide 2.5 ml Neb NEB SCH ×2 (18:17→21:56)
[2018-11-21 20:09] LABS: Troponin I 0.024 ng/mL (< 0.028)
--- NOTE | 2018-11-21 20:45 | HP ---
CHIEF COMPLAINT: Shortness of breath, increased weight. HISTORY OF PRESENT ILLNESS: The patient is a 73-year-old male with a history of smoking. He also has a history of systolic heart failure, recently had an AICD placed, comes into the hospital with complaints of shortness of breath going on for the past week, increased lower extremity swelling and 10-pound weight gain. The patient states that he has been compliant with his medications, however, felt that he has been putting on weight for the past one week. He denies any fevers or chills. He denies any sick contacts. He denies any chest pain or chest tightness. He continues to smoke a pack a day every 2 or 3 days. He has been as I mentioned compliant with his diet; however, at times twice a week he does eat at [employer]. PAST MEDICAL HISTORY: As of the followin. History of CAD status post CABG with a redo in January 2018. 2. Hypertension. 3. Dyslipidemia. 4. Gout. 5. COPD. 6. Systolic heart failure with recent AICD placement. PAST SURGICAL HISTORY: He has had a CABG and a redo, the redo was in January 2018. SOCIAL HISTORY: He lives alone. He still smokes a pack every 2-3 days. Denies any alcohol use. Code status unclear at this time. FAMILY HISTORY: Significant for mom who of heart problems. ALLERGIES: PENICILLIN. REVIEW OF SYSTEMS: All negative except for the ones mentioned above in the HPI. MEDICATIONS: He is on: 1. Aspirin 81 mg daily. 2. Atorvastatin 80 mg at bedtime. 3. Carvedilol 6.25 b.i.d. 4. Lisinopril 5 mg b.i.d. 5. Lasix, he is at 40 mg daily. PHYSICAL EXAMINATION: VITAL SIGNS: Temperature of 98.8, heart rate of 70, blood pressure of 115/60, he is on 90% on 2 L. GENERAL: He is awake, alert, and oriented x3. Does not appear in distress. HEENT: Normocephalic, atraumatic. No lymphadenopathy noted. Pupils are equal and reactive to light. CV: S1 and S2 present. No murmurs, rubs, or gallops. LUNGS: Mild rhonchi heard all over. ABDOMEN: Soft and nontender. Bowel sounds are present x2. EXTREMITIES: He does have significant +2 lower extremity edema. NEUROVASCULAR: No focal deficits noted. SKIN: No cuts, lesions, or bruises noted. LABORATORY RESULTS: His WBC is 6.5, hemoglobin of 13.1, hematocrit of 38.2, platelets of 192. Chemistry; sodium of 139, potassium of 3.5, BUN of 13, creatinine 0.98. His BNP is 3980. His troponin is 0.036. His total bilirubin is 1.3. His chest x-ray according to my interpretation looked hyperinflatable lungs. However, no significant pulmonary congestion was noted. Cardiomegaly. ASSESSMENT AND PLAN: The patient is a 73-year-old male who presents to the hospital with complaints of worsening shortness of breath. 1. Acute on chronic systolic heart failure. We will start him on Lasix IV b.i.d. Also, we will start some Zaroxolyn for better diuresing. Also I have consulted Cardiology. He recently had a pacemaker or AICD placed. I will continue his home medications. 2. History of smoking/chronic obstructive pulmonary disease. Again, I have asked the patient to quit smoking. He understands the importance. I will start him on some DuoNeb. I do not think he needs steroids at this time. I will continue to monitor. 3. History of coronary artery disease. Again, we will continue his aspirin and statin. 4. Deep vein thrombosis prophylaxis. We will put the patient on subcu heparin. Job ID: [id number]
[2018-11-21 22:07] VITALS: BMI 19.4
[2018-11-21 23:00] LABS: Troponin I 0.052 ng/mL (< 0.028)
[2018-11-22] MEDS: Ipratropium Bromide 2.5 ml Neb NEB SCH ×6 (02:15→22:08)
[2018-11-22 04:52] LABS: #Basophils 0.1 thou/uL (0.0-0.2); #Eosinphils 0.2 thou/uL (0.0-0.7); #Lymphocytes 1.6 thou/uL (1.20-3.40); #Monocytes 0.8 thou/uL (0.11-0.59); %Basophils 1.5 % (0.0-1.0); %Eosinophils 3.2 % (0.0-10.0); %Monocytes 14.4 % (0.0-10.0); %Neutrophils 52.9 % (42.0-75.0); Hemoglobin 13.1 g/dL (14.0-18.0); Mean Corpuscular HGB CONC 33.3 g/dL (32.0-36.0); Mean Corpuscular Hemoglobin 32.1 pg (27.0-31.0); Mean Corpuscular Volume 96.3 fL (78.0-98.0); Mean Platelet Volume 8.6 fL (7.4-10.4); Platelet Count 198 thou/uL (130-400); RBC Distribution Width 15.7 % (11.5-14.5); White Blood Cell (WBC) Count 5.6 thou/uL (4.8-10.8)
[2018-11-22 05:08] LABS: Anion Gap 11 mmol/L (10-20); BUN (Urea Nitrogen) 16 mg/dL (8.4-25.7); Calc. Creatinine Clearance 61 mL/min (70-130); Calcium 8.3 mg/dL (7.8-10.44); Carbon Dioxide 24 mmol/L (23-31); Chloride 107 mmol/L (98-107); Estimated GFR-MDRD 79; Glucose 86 mg/dL (83-110); Potassium 3.4 mmol/L (3.5-5.1); Sodium 139 mmol/L (136-145)
[2018-11-22] MEDS: Metolazone 2.5 MG TAB PO SCH (06:07)
[2018-11-22] MEDS: Furosemide 40 MG/4 ML VIAL SLOW IVP SCH ×2 (06:07→14:46)
[2018-11-22] MEDS: Carvedilol 3.125 MG TAB PO SCH ×2 (08:55→17:20)
[2018-11-22] MEDS: Aspirin 81 mg Enteric Coated Tablet PO SCH (08:55)
[2018-11-22] MEDS ORDERED: Potassium Chloride 20 MEQ TAB PO SCH (09:00)
--- NOTE | 2018-11-22 14:29 | PDOC.HOSPP ---
- Subjective Subjective: f/u for Acute/chronic systolic CHF with EF 15% on current Lasix IV. - Objective Vital Signs & Weight: Vital Signs (12 hours) Temp Pulse Resp BP BP Pulse Ox 11/22/18 14:16 73 16 96 11/22/18 12:25 98.3 F 69 18 111/67 94 L 11/22/18 10:03 79 16 97 11/22/18 07:49 97.8 F 84 18 124/86 94 L 11/22/18 06:51 87 16 97 11/22/18 04:05 97.8 F 78 18 122/80 98 11/22/18 04:00 98.2 F 76 16 122/79 96 Weight Weight 2.088 oz I&O: 11/21/18 11/22/18 11/23/18 06:59 06:59 06:59 Intake Total 420 Output Total 1400 Balance -980 Result Diagrams: 11/22/18 04:25 11/22/18 04:25 Radiology Reviewed by me: Yes (PCXR - hyperinflation, chronic changes) EKG Reviewed by me: Yes (Tele - SR) ROS - Review of Systems All systems: All other ROS were reviewed and found negative. - Medication Medications: Active Medications Generic Name Dose Route Start Last Admin Trade Name Freq PRN Reason Stop Dose Admin Aspirin 81 mg 11/22/18 09:00 11/22/18 08:55 Ecotrin PO 81 mg DAILY ECTOR Administration Carvedilol 3.125 mg 11/22/18 08:00 11/22/18 08:55 Coreg PO 3.125 mg BID-WM ECTOR Administration Furosemide 40 mg 11/22/18 06:00 11/22/18 06:07 Lasix SLOW IVP 40 mg 0600,1400 ECTOR Administration Ipratropium Mize 2.5 ml 11/21/18 18:30 11/22/18 14:16 Atrovent NEB 2.5 ml [id number] ECTOR Administration Metolazone 2.5 mg 11/22/18 06:00 11/22/18 06:07 Zaroxolyn PO 2.5 mg 0600 ECTOR Administration - Exam NAD, awake alert Eye: PERRL, anicteric sclera ENT: normocephalic atraumatic, no oropharyngeal lesions Neck: supple, symmetric, no JVD, no Thyromegaly Heart: RRR, no gallops, no rubs Respiratory: no tachypnea (diminished in bases), rhonchi, wheezes Gastrointestinal: soft, non-tender, non-distended, normal bowel sounds Extremities: no cyanosis Neurological: CN's grossly intact, no focal deficits Musculoskeletal: normal tone, normal strength Psychiatric: normal behavior, A&O x 3 Hosp A/P (1) Acute systolic ACC/AHA stage C congestive heart failure Code(s): I50.21 - ACUTE SYSTOLIC (CONGESTIVE) HEART FAILURE Status: Acute Plan: Continue Lasix 40mg IV BID another 24h then convert to po option (2) COPD (chronic obstructive pulmonary disease) Status: Acute Qualifiers: COPD type: COPD with acute exacerbation Qualified Code(s): J44.1 - Chronic obstructive pulmonary disease with (acute) exacerbation Plan: Continue Duonebs, Prednisone (3) Demand ischemia Code(s): I24.8 - OTHER FORMS OF ACUTE ISCHEMIC HEART DISEASE Status: Acute Plan: Secondary to #1, continue medical mgmt (4) CAD (coronary artery disease) Code(s): I25.10 - ATHSCL HEART DISEASE OF [place] CORONARY ARTERY W/O ANG PCTRS Status: Chronic Qualifiers: Coronary Disease-Associated Artery/Lesion type: [place] artery [place] vs. transplanted heart: robinson heart Associated angina: angina presence unspecified Qualified Code(s): I25.10 - Atherosclerotic heart disease of [place] coronary artery without angina pectoris Plan: Continue ASA, Lipitor, Coreg (5) Tobacco abuse Code(s): Z72.0 - TOBACCO USE Status: Chronic Plan: Smoking cessation resources - Plan social human services assistants, out of bed/ambulate Stable currently Continue IV Lasix another 24h then convert to po OOB/ambulate Resume home Coreg, ASA, Lipitor
[2018-11-22] MEDS ORDERED: Albuterol Sulfate 2.5 mg/3 ml Neb NEB PRN (14:57)
[2018-11-22] MEDS ORDERED: predniSONE 20 MG TAB PO SCH (15:30)
--- NOTE | 2018-11-22 20:16 | CON ---
DATE OF CONSULTATION: HISTORY OF PRESENT ILLNESS: Yobani Muse junior is a 73-year-old white male, admitted with CHF exacerbation. He had history of CABG x2 in [place] 5 or 6 years ago. He stated that when he left the hospital, he threw all of his medications away and did not take any medications after that, even aspirin. He also went back to smoking 1 to 2 packs per day and drinking 6 pack of beer per day. In July 2017, he was admitted with increased cough and shortness of breath and blood pressure on presentation was 181/115. He had significant wheezing. Echo revealed ejection fraction of 20% to 25% with moderate mitral regurgitation, aortic valve sclerosis, mild aortic regurgitation, [id number] tricuspid regurgitation, moderate pulmonic insufficiency. BNP was 3294. Cardiac enzymes were unremarkable. It was recommended that he have a LifeVest placed, however, he refused. He was discharged on carvedilol, Lasix, and lisinopril as well as prednisone and Aldactone. He then presented again in January 2018, and I was on vacation at that time. He was seen care for by Dr. Bettencourt. He again had not been taking any of his medications, stating that he could not afford them, although he continued to smoke 1 pack per day. During that admission, his troponin went to 11,638. He underwent cardiac catheterization by Dr. Bettencourt. This revealed severe 3-vessel coronary artery disease with severe disease in the right coronary artery graft. Specifically, there was total occlusion of the proximal LAD, 95% stenosis in the mid LAD, 95% proximal circumflex stenosis which was heavily calcified. The right coronary artery was totally occluded in its midportion. The graft to the distal right coronary artery had an 80% stenosis and was diffusely diseased. The HAMILTON attached to the distal LAD was free of significant disease. There was some disease in the LAD distal to the HAMILTON insertion. He then underwent redo-CABG x3 on February 11, 2018, after Plavix had been discontinued. Saphenous vein grafts placed to the LAD at the apex, to the obtuse marginal and to the right posterior descending. Saphenous vein graft to the right PDA was anastomosed onto the obtuse marginal graft. Saphenous vein graft to the distal LAD was anastomosed to the side wall of the obtuse marginal graft. Postoperatively, he had a fairly unremarkable course. He then presented again in March 2018 with sharp pain located somewhat higher in his chest. This was not quite like what he presented with when he had unstable angina. The pain was definitely pleuritic in nature. He also notes that his pain was much worse supine in bed. He had indeterminate troponins. It was felt that this represented post pericardiotomy syndrome. He is placed on colchicine and his pain resolved. In 2018, he was admitted with COPD exacerbation and CHF. In September 2018, he was also admitted with CHF. He then was readmitted again later in September 2018 with increased shortness of breath. During that admission, he finally agreed to placement of an ICD. He was discharged on October 24. He now presents complaining of increased shortness of breath and significant increased peripheral edema. He states he has been taking all of his medications. However, it appears that he is noncompliant with salt restriction. Eating [employer] 2 times per week. He also continues to smoke several cigarettes per day. He denies any fever or chest discomfort. PAST MEDICAL HISTORY: Coronary artery disease, hypercholesterolemia, ischemic cardiomyopathy with ejection fraction of 25%, noncompliance, and alcohol abuse. MEDICATIONS: 1. Albuterol nebs q.8 hours p.r.n. 2. Aspirin 81 daily. 3. Atorvastatin 80 at bedtime. 4. Carvedilol 3.125 b.i.d. 5. Clindamycin 300 t.i.d. 6. Furosemide 40 q.a.m. 7. DuoNeb b.i.d. 8. Prednisone 40 mg daily. ALLERGIES: PENICILLIN. OPERATIONS: Two bypass surgeries. SOCIAL HISTORY: He smoked 1 to 2 packs per day, but now is down to 2 to 3 cigarettes per day. He drinks 6 pack of beer per day. FAMILY HISTORY: Unremarkable. REVIEW OF SYSTEMS: A 10-point review of systems is otherwise unremarkable. PHYSICAL EXAMINATION: VITAL SIGNS: Blood pressure 122/83 and pulse of 77. HEENT: PERRL. NECK: Supple. CHEST: Reveals crackles at the bases. CARDIOVASCULAR: S1 and S2 normal without any S3, S4, or murmurs. ABDOMEN: Normal bowel sounds without tenderness or organomegaly. EXTREMITIES: Revealed 2+ pretibial edema. NEUROLOGIC: Grossly intact. SKIN: Warm and dry. LABORATORY DATA: EKG revealed normal sinus rhythm, PACs, anterolateral T-wave changes. Chest x-ray reveals cardiomegaly with small bilateral effusions. Hemoglobin 13.1, hematocrit 39.5, white count 5600, and platelets 198,000. Sodium 139, potassium 3.4, chloride 107, carbon dioxide 24, BUN 16, and creatinine 0.94. BNP 3980.8. Troponin I is up to 0.052. IMPRESSION: 1. Acute on chronic systolic and diastolic heart failure. 2. Ischemic cardiomyopathy with ejection fraction of 20% to 25%. 3. Status post single-chamber ICD placement. 4. Status post coronary artery bypass grafting 6 years ago and in January 2018. 5. 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 6. Smoker. 7. Former EtOH abuse. 8. History of nonsustained ventricular tachycardia. 9. Noncompliance with medications and followups. 10. Smoker. 11. Chronic obstructive pulmonary disease. PLAN: Mr. Muse will be diuresed with renal function, will be watched closely. He states that his breathing has significantly improved. Job ID: [id number]
[2018-11-22] MEDS ORDERED: Atorvastatin Calcium 40 MG TAB PO SCH (21:00)
[2018-11-23] MEDS: Ipratropium Bromide 2.5 ml Neb NEB SCH ×3 (02:35→10:53)
[2018-11-23 05:55] LABS: Anion Gap 14 mmol/L (10-20); BUN (Urea Nitrogen) 20 mg/dL (8.4-25.7); Calc. Creatinine Clearance 0 mL/min (70-130); Calcium 8.9 mg/dL (7.8-10.44); Carbon Dioxide 22 mmol/L (23-31); Chloride 104 mmol/L (98-107); Estimated GFR-MDRD 74; Glucose 143 mg/dL (83-110); Potassium 3.8 mmol/L (3.5-5.1); Sodium 136 mmol/L (136-145)
[2018-11-23] MEDS: Furosemide 40 MG/4 ML VIAL SLOW IVP SCH (06:14)
[2018-11-23] MEDS: Metolazone 2.5 MG TAB PO SCH (06:14)
[2018-11-23] MEDS: Carvedilol 3.125 MG TAB PO SCH (08:54)
[2018-11-23] MEDS: Aspirin 81 mg Enteric Coated Tablet PO SCH (08:54)
[2018-11-23] MEDS ORDERED: predniSONE 20 MG TAB PO SCH (09:00)
[2018-11-23 13:09] VITALS: BP 106/63; TEMP 97.6
[2018-11-23] MEDS ORDERED: Lisinopril 5 MG TAB PO SCH (21:00)
--- NOTE | 2018-11-23 21:44 | DIS ---
DATE OF ADMISSION: 11/21/2018 DATE OF DISCHARGE: 11/23/2018 DISCHARGE DIAGNOSES: 1. Acute on chronic systolic congestive heart failure, stage C exacerbation, improved. 2. Ischemic cardiomyopathy with ejection fraction 15%. 3. Chronic obstructive pulmonary disease. 4. Demand ischemia of the myocardium. 5. Coronary artery disease, chronic and stable. 6. Tobacco abuse ongoing. CONSULTATIONS: Dr. Ramon Pak with Cardiology Service. PERTINENT LABORATORY AND X-RAY FINDINGS: Potassium ranged between 3.4 to 3.8. Creatinine ranged between 0.94 to 1.00. Troponin I ranged between 0.024 to 0.052. CBC showed a hemoglobin 13.1, hematocrit 39.5. Portable chest x-ray dated 11/21/2018, showed cardiomegaly with chronic changes in bilateral lung johnson. HOSPITAL COURSE: The patient was initially admitted to the telemetry unit after presenting with increased shortness of breath in the context of known chronic systolic congestive heart failure. The patient underwent general evaluation and was placed on Lasix 40 mg b.i.d. The patient also received Zaroxolyn and continuation of lisinopril. The patient rapidly clinically improved with diuretic therapy diuresing appropriately. The patient was also initiated on prednisone due to long-standing chronic obstructive pulmonary disease. No specific evidence of worsening of exacerbation, however, the patient was placed on prednisone with recommendations to continue a tapering dose after discharge. Initial BNP at the time of admission 3980, previously noted on 10/19/2018, at 6893. Overall, the patient overall did remain clinically stable during the hospital course, tolerating regular oral intake and ambulating without assistance or difficulty. I have examined the patient at time of discharge and discussed followup instructions. The patient verbalized understanding and agreement, ready for discharge on 11/23/2018. DISCHARGE MEDICATIONS: 1. Albuterol sulfate 2.5 mg nebulized q.8 hours p.r.n. 2. DuoNeb 3 mL nebulized b.i.d. p.r.n. 3. Enteric-coated aspirin 81 mg p.o. daily. 4. Lipitor 80 mg p.o. at bedtime. 5. Carvedilol 3.125 mg p.o. b.i.d. 6. Lasix 40 mg p.o. daily. 7. Lisinopril 2.5 mg p.o. b.i.d. 8. Prednisone 40 mg p.o. daily x2 days, followed by 20 mg p.o. daily x6 days, followed by 10 mg p.o. daily x4 days. FOLLOWUP: The patient may follow up with his primary care provider, Dr. Himanshu Wong on 11/25/2018, at 3:30 pm. The patient will follow up with Dr. Ramon Pak and to call his office for appointment time and date. CONDITION ON DISCHARGE: Fair. ACTIVITY: Ad-nba. DIET: Heart healthy. CODE STATUS: Full. DISPOSITION: Home on 11/23/2018. TIME SPENT: Total time preparing and coordinating discharge, 33 minutes. Job ID: [id number]
[2018-11-24] MEDS ORDERED: predniSONE 20 MG TAB PO SCH (09:00)
[2018-11-30] MEDS ORDERED: predniSONE 20 MG TAB PO SCH (09:00)
== END 2018-11-23 14:03 | disposition home health service (06) | DRG 292 ==
LOC: ERS 15:45 → 2NO 19:00
PROVIDERS: ADMIT Internal Medicine; ATTEND Internal Medicine
DX: I11.0 Hypertensive heart disease with heart failure (principal); I24.8 Other forms of acute ischemic heart disease; F17.210 Nicotine dependence, cigarettes, uncomplicated; I25.10 Atherosclerotic heart disease of native coronary artery without angina pectoris; E78.5 Hyperlipidemia, unspecified; I50.23 Acute on chronic systolic (congestive) heart failure; I08.3 Combined rheumatic disorders of mitral, aortic and tricuspid valves; M10.9 Gout, unspecified; J44.9 Chronic obstructive pulmonary disease, unspecified; Z95.810 Presence of automatic (implantable) cardiac defibrillator; Z95.1 Presence of aortocoronary bypass graft; Z79.899 Other long term (current) drug therapy; Z79.82 Long term (current) use of aspirin; Z79.52 Long term (current) use of systemic steroids
CPT/HCPCS: 36415; 71045; 80048; 80053; 82553; 83880; 84484; 85025; 93005; 93798; 94640; 96374; J1940; J7512

== ENCOUNTER 2019-04-03 22:22 | Observation (INO) | payer MEDICARE, MEDICAID ==
[2019-04-03] MEDS ORDERED: predniSONE 20 MG TAB ONE (22:54)
[2019-04-03 23:17] LABS: #Basophils 0.1 thou/uL (0.0-0.2); #Lymphocytes 2.6 thou/uL (1.20-3.40); #Monocytes 0.8 thou/uL (0.11-0.59); #Neutrophils 4.6 thou/uL (1.40-6.50); %Basophils 0.9 % (0.0-1.0); %Eosinophils 11.3 % (0.0-10.0); %Lymphocytes 28.2 % (21.0-51.0); %Monocytes 8.9 % (0.0-10.0); %Neutrophils 50.7 % (42.0-75.0); Hemoglobin 13.2 g/dL (14.0-18.0); Mean Corpuscular HGB CONC 33.8 g/dL (32.0-36.0); Mean Corpuscular Hemoglobin 32.5 pg (27.0-31.0); Mean Platelet Volume 8.1 fL (7.4-10.4); Platelet Count 223 thou/uL (130-400); RBC Distribution Width 13.5 % (11.5-14.5); Red Blood Cell (RBC) Count 4.07 mill/uL (4.70-6.10); White Blood Cell (WBC) Count 9.1 thou/uL (4.8-10.8)
[2019-04-03 23:24] LABS: PTT 24.5 SEC (22.9-36.1)
--- NOTE | 2019-04-03 23:36 | RAD ---
EXAM: Portable chest PROVIDED CLINICAL HISTORY: Shortness of breath COMPARISON: 11/21/2018 FINDINGS: Cardiac silhouette remains enlarged. Median sternotomy changes and left subclavian cardiac pacing dev ice are again seen. Vascular calcification is noted. No focal consolidation, pleural fluid or pneumothorax evident. IMPRESSION: No evidence for an acute cardiopulmonary process.
[2019-04-03 23:46] LABS: ALT (SGPT) 15 U/L (8-55); AST (SGOT) 22 U/L (5-34); Albumin 3.5 g/dL (3.4-4.8); Alkaline Phosphatase 84 U/L (40-110); Anion Gap 14 mmol/L (10-20); BUN (Urea Nitrogen) 13 mg/dL (8.4-25.7); Bilirubin, Total 0.8 mg/dL (0.2-1.2); Calc. Creatinine Clearance 0 mL/min (70-130); Calcium 8.4 mg/dL (7.8-10.44); Carbon Dioxide 21 mmol/L (23-31); Chloride 108 mmol/L (98-107); Estimated GFR-MDRD 78; Globulin 2.8 g/dL (2.4-3.5); Glucose 82 mg/dL (83-110); Lipase 64 U/L (8-78); Potassium 3.2 mmol/L (3.5-5.1); Protein, Total 6.3 g/dL (5.8-8.1); Sodium 140 mmol/L (136-145)
[2019-04-04 00:01] LABS: CKMB 3.1 ng/mL (0-6.6)
[2019-04-04] MEDS ORDERED: Potassium Chloride 20 MEQ TAB ONE (00:07)
[2019-04-04] MEDS ORDERED: Acetaminophen 325 MG TAB PO PRN (00:19)
--- NOTE | 2019-04-04 00:40 | PDOC.EVN ---
Event Note - Event Note Event Note: [id number]
[2019-04-04 01:55] VITALS: BMI 21.2
--- NOTE | 2019-04-04 02:28 | HP ---
CHIEF COMPLAINT: Shortness of breath. HISTORY OF PRESENT ILLNESS: Mr. Muse is a 74-year-old male with past medical history of congestive heart failure, COPD, cigarette smoker, hypertension, coronary artery bypass graft surgery, among others, presented to the emergency room with shortness of breath for the last 2 days. Denies fever or chills. The patient has been wheezing. In the emergency room, the patient was in respiratory distress. Chest x-ray, no acute findings. BNP is elevated at 1791, but comparing to old labs, it has been trending down. Troponin is indeterminate at 0.03. Potassium is 3.2. The patient takes Lasix twice a day. The patient is being admitted to hospital for further management. PAST MEDICAL HISTORY: As mentioned above in the history of present illness. PAST SURGICAL HISTORY: Coronary artery bypass graft surgery x2, one in February 2018 and another approximately in the . SOCIAL HISTORY: He lives alone. He still smokes cigarettes. He denies drinking alcohol. FAMILY HISTORY: Reviewed and noncontributory. HOME MEDICATIONS: Please see home medication reconciliation form for updated medications. ALLERGIES: ALLERGIES TO PENICILLIN. REVIEW OF SYSTEMS: Review of 14 systems negative except what is mentioned in the history of present illness. PHYSICAL EXAMINATION: GENERAL: The patient is awake, alert, in moderate respiratory distress. VITAL SIGNS: Blood pressure 116/71, pulse is 80, respiratory rate is 25, and pulse oximetry is 94%. HEAD AND NECK: Normocephalic, atraumatic. NECK: Supple. CHEST: Diffuse bilateral expiratory wheeze. HEART: S1 and S2. Regular. ABDOMEN: Soft, nontender. Bowel sounds present. NEUROLOGIC: Awake, alert, and oriented x3. PSYCH: Normal mood. EXTREMITIES: No clubbing or cyanosis. LABORATORY DATA: As mentioned above in the history of present illness. IMAGING DATA: Chest x-ray, no acute findings. ASSESSMENT: 1. Chronic obstructive pulmonary disease with acute exacerbation. 2. Indeterminate troponin. 3. History of coronary artery bypass graft surgery. 4. Hypertension. 5. Cigarette smoker. 6. Congestive heart failure, chronic. PLAN: 1. Admit. 2. Tele monitoring. 3. Serial troponins. 4. Aspirin. 5. Oxygen to keep saturation more than 92%. 6. Bronchodilators, scheduled and as needed. 7. IV steroids. 8. Empiric IV antibiotics. 9. Reconcile home medications. 10. DVT prophylaxis as appropriate. 11. Expected length of stay, at least 1 midnight if the patient is stable and further workup negative. Job ID: [id number]
[2019-04-04] MEDS: cefTRIAXone\\ROCEPHIN 1 GM in Sodium Chloride 0.9% 100 ML IVPB SCH (02:37)
[2019-04-04 02:45] LABS: Troponin I Less than 0.010 ng/mL (< 0.028)
[2019-04-04] MEDS: Azithromycin 500 MG in Sodium Chloride 0.9% 250 ML 250 ML IVPB SCH (03:17)
[2019-04-04] MEDS: methylPREDNISolone Sod Succ 40 MG VIAL IVP SCH ×3 (05:08→17:07)
[2019-04-04] MEDS ORDERED: Furosemide 40 MG/4 ML VIAL SLOW IVP SCH (06:00)
[2019-04-04 06:13] LABS: Band 1 % (5-11); Hemoglobin 12.7 g/dL (14.0-18.0); Lymphocytes 16 % (21-51); MDiff Complete? YES; Mean Corpuscular HGB CONC 32.6 g/dL (32.0-36.0); Mean Corpuscular Hemoglobin 31.5 pg (27.0-31.0); Mean Corpuscular Volume 96.7 fL (78.0-98.0); Mean Platelet Volume 8.3 fL (7.4-10.4); Neutrophil 83 % (42-75); Platelet Count 220 thou/uL (130-400); Platelet Morphology Comment Appears Adequate; RBC Distribution Width 13.6 % (11.5-14.5); Red Blood Cell (RBC) Count 4.03 mill/uL (4.70-6.10); White Blood Cell (WBC) Count 5.3 thou/uL (4.8-10.8)
[2019-04-04 06:15] LABS: Troponin I Less than 0.010 ng/mL (< 0.028)
[2019-04-04 06:51] LABS: Anion Gap 11 mmol/L (10-20); BUN (Urea Nitrogen) 14 mg/dL (8.4-25.7); Calc. Creatinine Clearance 52 mL/min (70-130); Calcium 8.4 mg/dL (7.8-10.44); Carbon Dioxide 21 mmol/L (23-31); Chloride 113 mmol/L (98-107); Estimated GFR-MDRD 75; Glucose 221 mg/dL (83-110); Potassium 3.9 mmol/L (3.5-5.1); Sodium 141 mmol/L (136-145)
[2019-04-04] MEDS: Enoxaparin Sodium 40 MG/0.4 ML SYRINGE SC SCH (09:26)
[2019-04-04] MEDS: Aspirin 325 MG TAB PO SCH (09:27)
[2019-04-04] MEDS: Furosemide 40 MG/4 ML VIAL SLOW IVP SCH (09:27)
[2019-04-04] MEDS ORDERED: Diazepam 5 MG TAB PO PRN (10:57)
[2019-04-04] MEDS ORDERED: Thiamine HCl 200 MG/2 ML VIAL IM SCH (11:00)
[2019-04-04] MEDS ORDERED: Diazepam 5 MG TAB PO SCH (11:00)
[2019-04-04 12:47] LABS: #Monocytes 0.2 thou/uL (0.11-0.59); #Neutrophils 7.3 thou/uL (1.40-6.50); %Basophils 0.5 % (0.0-1.0); %Eosinophils 0.1 % (0.0-10.0); %Lymphocytes 11.6 % (21.0-51.0); %Neutrophils 85.8 % (42.0-75.0); Hemoglobin 13.2 g/dL (14.0-18.0); Mean Corpuscular HGB CONC 32.6 g/dL (32.0-36.0); Mean Corpuscular Hemoglobin 31.5 pg (27.0-31.0); Mean Corpuscular Volume 96.7 fL (78.0-98.0); Mean Platelet Volume 8.2 fL (7.4-10.4); Platelet Count 235 thou/uL (130-400); RBC Distribution Width 13.8 % (11.5-14.5); Red Blood Cell (RBC) Count 4.18 mill/uL (4.70-6.10); White Blood Cell (WBC) Count 8.5 thou/uL (4.8-10.8)
[2019-04-04 13:18] LABS: ALT (SGPT) 14 U/L (8-55); AST (SGOT) 22 U/L (5-34); Alkaline Phosphatase 89 U/L (40-110); Anion Gap 13 mmol/L (10-20); BUN (Urea Nitrogen) 13 mg/dL (8.4-25.7); Bilirubin, Direct 0.3 mg/dL (0.1-0.3); Bilirubin, Total 0.6 mg/dL (0.2-1.2); Calc. Creatinine Clearance 47 mL/min (70-130); Carbon Dioxide 23 mmol/L (23-31); Chloride 107 mmol/L (98-107); Estimated GFR-MDRD 67; Globulin 3.1 g/dL (2.4-3.5); Glucose 119 mg/dL (83-110); Potassium 4.3 mmol/L (3.5-5.1); Protein, Total 7.1 g/dL (5.8-8.1); Sodium 139 mmol/L (136-145)
[2019-04-04 13:32] LABS: Syphilis Antibody Nonreactive (Nonreactive); Syphilis Antibody Index 0.07 S/CO (<1.00 Non-Reactive)
--- NOTE | 2019-04-04 14:35 | PDOC.HOSPP ---
- Subjective Encounter Date: 04/04/19 Subjective: 74 y/o male with COPD, Cardiomyopathy with EF of 15-20 s/p AICD admitted with worsening SOB associated with wheezing. Feeling better. Admitted to daily consumption of large amounts of alcohol recently. - Objective Vital Signs & Weight: Vital Signs (12 hours) Temp Pulse Resp BP Pulse Ox 04/04/19 13:57 80 16 04/04/19 11:52 97.7 F 80 18 154/101 H 95 04/04/19 07:19 80 16 04/04/19 07:15 98.3 F 82 16 107/56 L 94 L 04/04/19 04:47 97.6 F 84 18 94/51 L 92 L 04/04/19 02:37 82 16 95 Weight Weight 119 lb 9.612 oz I&O: 04/03/19 04/04/19 04/05/19 06:59 06:59 06:59 Intake Total 600 Output Total 350 Balance 250 Result Diagrams: 04/04/19 12:00 04/04/19 12:00 Hospitalist ROS - Medication Medications: Active Medications Generic Name Dose Route Start Last Admin Trade Name Freq PRN Reason Stop Dose Admin Albuterol/Ipratropium 3 ml 04/04/19 01:00 04/04/19 13:57 Duoneb NEB 3 ml [id number] ECTOR Administration Aspirin 325 mg 04/04/19 09:00 04/04/19 09:27 Aspirin PO 325 mg DAILY ECTOR Administration Enoxaparin Sodium 40 mg 04/04/19 09:00 04/04/19 09:26 Lovenox SC Not Given 899 ECTOR Furosemide 40 mg 04/04/19 09:00 04/04/19 09:27 Lasix SLOW IVP 40 mg DAILY ECTOR Administration Azithromycin 500 mg/ Sodium 250 mls @ 250 mls/hr 04/04/19 02:00 04/04/19 03: 17 Chloride IVPB 250 mls Q24HR ECTOR Administration Ceftriaxone Sodium 1 gm/ 100 mls @ 200 mls/hr 04/04/19 01:00 04/04/19 02:37 Sodium Chloride IVPB 100 mls Q24HR ECTOR Administration Methylprednisolone Sodium Succinate 40 mg 04/04/19 06:00 04/04/19 12:16 Solu-Medrol IVP 40 mg Q6HR ECTOR Administration Sodium Chloride 10 ml 04/04/19 09:00 04/04/19 09:27 Flush - Normal Saline IVF 10 ml Q12HR ECTOR Administration - Exam General Appearance: awake alert Eye: anicteric sclera ENT: normocephalic atraumatic Neck: supple, no JVD Heart: RRR Respiratory - other findings: fair air entry with transmitted sound Gastrointestinal: soft, non-tender, non-distended, normal bowel sounds Extremities: no cyanosis, no edema Neurological: cranial nerve grossly intact, no focal deficits Neurological - other findings: Tremors + Hosp A/P (1) Acute exacerbation of chronic obstructive pulmonary disease (COPD) Code(s): J44.1 - CHRONIC OBSTRUCTIVE PULMONARY DISEASE W (ACUTE) EXACERBATION Status: Acute (2) Chronic systolic (congestive) heart failure Code(s): I50.22 - CHRONIC SYSTOLIC (CONGESTIVE) HEART FAILURE Status: Acute (3) Alcohol abuse Code(s): F10.10 - ALCOHOL ABUSE, UNCOMPLICATED Status: Chronic (4) CAD (coronary artery disease) Code(s): I25.10 - ATHSCL HEART DISEASE OF [place] CORONARY ARTERY W/O ANG PCTRS Status: Chronic Qualifiers: Coronary Disease-Associated Artery/Lesion type: [place] artery [place] vs. transplanted heart: [place] heart Associated angina: angina presence unspecified Qualified Code(s): I25.10 - Atherosclerotic heart disease of [place] coronary artery without angina pectoris (5) CKD (chronic kidney disease) Code(s): N18.9 - CHRONIC KIDNEY DISEASE, UNSPECIFIED Status: Chronic Qualifiers: Chronic kidney disease stage: stage 2 (mild) Qualified Code(s): N18.2 - Chronic kidney disease, stage 2 (mild) (6) Cardiomyopathy Code(s): I42.9 - CARDIOMYOPATHY, UNSPECIFIED Status: Chronic Qualifiers: Cardiomyopathy type: ischemic Qualified Code(s): I25.5 - Ischemic cardiomyopathy (7) Tobacco abuse Code(s): Z72.0 - TOBACCO USE Status: Chronic - Plan Continue current treatment Start alcohol withdrawal protocol. Consult HF team.
[2019-04-04] MEDS ORDERED: Ondansetron PF 4 MG/2 ML Vial SLOW IVP PRN (15:22)
[2019-04-04] MEDS ORDERED: Lisinopril 2.5 MG TAB PO SCH (17:15)
[2019-04-04] MEDS ORDERED: Metoclopramide HCl 10 MG/2 ML VIAL IVP PRN (17:52)
[2019-04-04] MEDS ORDERED: Metoclopramide HCl 10 MG/2 ML VIAL IVP SCH (18:00)
[2019-04-04] MEDS ORDERED: Lorazepam 2 MG/ML VIAL SLOW IVP SCH (18:00)
[2019-04-04 18:33] LABS: Benzodiazepine Screen Detected (NotDetected); Medtox Reader # READER 1
[2019-04-04 18:34] LABS: Amphetamine Not Detected (NotDetected); Barbiturates Screen Not Detected (NotDetected); Cocaine Metabolite Screen Not Detected (NotDetected); Medtox Control Line Valid? VALID (VALID); Methadone Not Detected (NotDetected); Methamphetamine Not Detected (NotDetected); Opiate Screen Not Detected (NotDetected); Oxycodone Screen Not Detected (NotDetected); Phencyclidine (PCP) Not Detected (NotDetected); THC/Cannabinoid Screen Not Detected (NotDetected); Tricyclic Screen Not Detected (NotDetected)
[2019-04-04] MEDS ORDERED: Atorvastatin Calcium 40 MG TAB PO SCH (23:30)
[2019-04-04] MEDS ORDERED: Carvedilol 3.125 MG TAB PO SCH (23:30)
[2019-04-05] MEDS: methylPREDNISolone Sod Succ 40 MG VIAL IVP SCH ×2 (00:37→06:02)
[2019-04-05] MEDS: cefTRIAXone\\ROCEPHIN 1 GM in Sodium Chloride 0.9% 100 ML IVPB SCH (00:44)
[2019-04-05] MEDS: Azithromycin 500 MG in Sodium Chloride 0.9% 250 ML 250 ML IVPB SCH (01:55)
[2019-04-05] MEDS ORDERED: Diazepam 5 MG TAB PO PRN (04:00)
[2019-04-05 05:28] LABS: Hemoglobin 11.8 g/dL (14.0-18.0); Mean Corpuscular HGB CONC 33.2 g/dL (32.0-36.0); Mean Corpuscular Volume 96.6 fL (78.0-98.0); Mean Platelet Volume 8.2 fL (7.4-10.4); Platelet Count 195 thou/uL (130-400); RBC Distribution Width 13.7 % (11.5-14.5); Red Blood Cell (RBC) Count 3.68 mill/uL (4.70-6.10); White Blood Cell (WBC) Count 16.3 thou/uL (4.8-10.8)
[2019-04-05 05:59] LABS: Anion Gap 12 mmol/L (10-20); BUN (Urea Nitrogen) 18 mg/dL (8.4-25.7); Calc. Creatinine Clearance 56 mL/min (70-130); Calcium 8.7 mg/dL (7.8-10.44); Carbon Dioxide 25 mmol/L (23-31); Chloride 106 mmol/L (98-107); Estimated GFR-MDRD 77; Glucose 136 mg/dL (83-110); Potassium 4.3 mmol/L (3.5-5.1); Sodium 139 mmol/L (136-145)
[2019-04-05] MEDS ORDERED: predniSONE 20 MG TAB PO SCH (08:00)
[2019-04-05] MEDS ORDERED: Carvedilol 3.125 MG TAB PO SCH (08:00)
[2019-04-05 08:28] VITALS: BP 138/75; TEMP 97.6
[2019-04-05] MEDS ORDERED: Folic Acid 1 MG TAB PO SCH (09:00)
[2019-04-05] MEDS ORDERED: Cefdinir 300 MG CAP PO SCH (09:00)
[2019-04-05] MEDS ORDERED: Multivitamin W/ Minerals 1 TAB PO SCH (09:00)
[2019-04-05] MEDS ORDERED: Lisinopril 2.5 MG TAB PO SCH (09:00)
[2019-04-05] MEDS ORDERED: Thiamine 100 MG TAB PO SCH (09:00)
[2019-04-05] MEDS ORDERED: Azithromycin 250 MG TAB PO SCH (09:00)
[2019-04-05] MEDS ORDERED: Magnesium Oxide 400 MG TAB PO SCH (09:00)
[2019-04-05] MEDS: Enoxaparin Sodium 40 MG/0.4 ML SYRINGE SC SCH (09:47)
[2019-04-05] MEDS: Aspirin 325 MG TAB PO SCH (09:49)
[2019-04-05] MEDS: Furosemide 40 MG/4 ML VIAL SLOW IVP SCH (09:49)
[2019-04-05] MEDS ORDERED: Atorvastatin Calcium 40 MG TAB PO SCH (21:00)
--- NOTE | 2019-04-07 09:15 | DIS ---
DATE OF ADMISSION: 04/04/2019 DATE OF DISCHARGE: 04/05/2019 PRIMARY CARE PHYSICIAN: Himanshu Wong MD DISCHARGE DIAGNOSES: 1. Acute exacerbation of chronic obstructive pulmonary disease. 2. Chronic systolic heart failure with ejection fraction of 15% to 20%. 3. Ischemic cardiomyopathy, status post AICD placement. 4. Chronic alcohol abuse with withdrawal symptoms. 5. Coronary artery disease. 6. Chronic kidney disease. 7. Tobacco abuse disorder. HOSPITAL COURSE: 74-year-old male with known history of COPD, cardiomyopathy with EF of 15% to 20%, status post AICD placement, admitted with worsening shortness of breath associated with wheezing. Impression of COPD exacerbation was made and the patient was started on bronchodilators, steroid, and oxygen with improvement. Soon oxygen was weaned off and the patient was back to baseline. Given recent increased daily consumption of large amount of alcohol, the patient was started on alcohol withdrawal protocol as he was having some tremors. He also was treated with banana bag and multivitamin. Overnight, the patient was markedly improved with no tremors and not requiring any oxygen and reportedly feels at baseline, hence was discharged. 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 He was also advised to stop smoking and alcohol, but he clearly stated that he is having no intention of stopping any of both. He was discharged to follow up with primary care physician. PHYSICAL EXAMINATION: VITAL SIGNS: Temperature 97.6, pulse 85, respiratory rate 16, SpO2 of 94% on room air, blood pressure is 138/75. GENERAL: Strong willed, elderly male, in no obvious distress. Afebrile. Anicteric. Acyanotic. HEENT: Normocephalic and atraumatic. Oral mucosa is moist. CARDIOVASCULAR: Regular rhythm and rate with normal heart sounds. RESPIRATORY: Fair air entry bilaterally with few transmitted breath sounds. No obvious crackle or rhonchi was appreciated. GI: Full, soft, nontender, nondistended with normal bowel sounds. EXTREMITIES: Grossly normal looking, atraumatic with no obvious edema or erythema. ASSISTANT HALL DIRECTOR: Conscious, alert, oriented x3 with appropriate mental status. Cranial nerves 2 through 12 are grossly intact. The patient moves all extremities. The patient is ambulant. There is no obvious tremor or confusion. DISCHARGE CONDITION: Improved. DISCHARGE DISPOSITION: Home. DISCHARGE MEDICATIONS: 1. Albuterol nebulization 2.5 mg q.8 hours p.r.n. 2. Trelegy Ellipta 1 inhalation daily. 3. DuoNeb 3 mL nebulization b.i.d. 4. Acetaminophen 650 mg p.o. q.4 p.r.n. for pain. 5. Aspirin 81 mg p.o. daily. 6. Lipitor 80 mg p.o. daily at bedtime. 7. Azithromycin 250 mg p.o. daily for 4 days. 8. Carvedilol 3.125 mg p.o. b.i.d. 9. Cefdinir 300 mg p.o. b.i.d. for 4 days. 10. Folic acid 1 mg p.o. daily. 11. Furosemide 40 mg p.o. daily. 12. Lisinopril 2.5 mg p.o. b.i.d. 13. Magnesium oxide 400 mg p.o. daily. 14. Multivitamin with minerals 1 tablet p.o. daily. 15. Prednisone 40 mg p.o. daily for 5 days. 16. Thiamine 100 mg p.o. daily. Job ID: [id number]
== END 2019-04-05 10:21 | disposition home health service (06) ==
LOC: ERS 22:22 → 2SW 04-04 00:21
PROVIDERS: ADMIT Internal Medicine; ATTEND Internal Medicine
DX: J44.1 Chronic obstructive pulmonary disease with (acute) exacerbation (principal); I13.0 Hypertensive heart and chronic kidney disease with heart failure and stage 1 through stage 4 chronic kidney disease, or unspecified chronic kidney disease; N18.2 Chronic kidney disease, stage 2 (mild); I50.23 Acute on chronic systolic (congestive) heart failure; F17.210 Nicotine dependence, cigarettes, uncomplicated; F10.239 Alcohol dependence with withdrawal, unspecified; I25.5 Ischemic cardiomyopathy; I25.10 Atherosclerotic heart disease of native coronary artery without angina pectoris; Z79.82 Long term (current) use of aspirin; Z79.899 Other long term (current) drug therapy; Z88.0 Allergy status to penicillin; Z95.1 Presence of aortocoronary bypass graft
CPT/HCPCS: 71045; 80048 ×2; 80053 ×2; 80306; 82248; 82553; 83690; 83880; 84145; 84484 ×3; 85007; 85025 ×2; 85027 ×2; 85610; 85730; 86780; 93005; 94640 ×4; 96365; 96366; 96367; 96375; 96376 ×2; 99291; 99406; G0378 ×3; 36415; J0456; J0696; J1940; J2060; J2405; J2765; J2920; J3490; J7050; J7512; J7620

== ENCOUNTER 2020-11-01 20:17 | Inpatient (IN) | payer MEDICARE, MEDICAID ==
[2020-11-01 21:20] LABS: Bacteria/HPF 2+ HPF (None Seen); Bilirubin Negative (Negative); Blood, Urine 2+ (Negative); Clarity Turbid (Clear); Glucose, Urine (Dipstick) Normal (Negative); Ketone, Urine Negative (Negative); Leukocyte 500 Leu/uL (Negative); Nitrite Negative (Negative); Protein, Urine (Dipstick) 20 mg/dL (Neg-Trace); Specific Gravity, Urine 1.017 (1.002-1.036); Squamous Epithelial None Seen HPF (0-3); Urobilinogen Normal mg/dL (Less than 2); WBC/HPF Greater than 50 HPF (0-3); pH, Urine 5.5 (5.0-9.0)
[2020-11-01] MEDS ORDERED: Cefepime 2 GM VIAL ONE (21:21)
[2020-11-01 21:23] LABS: Hemoglobin 14.5 g/dL (14.0-18.0); Mean Corpuscular HGB CONC 32.6 g/dL (32.0-36.0); Mean Corpuscular Hemoglobin 31.5 pg (27.0-31.0); Mean Corpuscular Volume 96.4 fL (78.0-98.0); Mean Platelet Volume 9.7 fL (7.4-10.4); Platelet Count 236 thou/uL (130-400); RBC Distribution Width 15.5 % (11.5-14.5); Red Blood Cell (RBC) Count 4.62 mill/uL (4.70-6.10); White Blood Cell (WBC) Count 21.3 thou/uL (4.8-10.8)
[2020-11-01 21:30] LABS: Actual Bicarbonate (HCO3v) 21 mEq/L (22-28); Analyzer IN Cardio ER; Calcium, Ionized (venous) 1.05 mmol/L (1.16-1.32); Chloride (VBG) 97 mmol/L (98-106); Hemoglobin (Hb) 14.9 g/dL (12.6-17.4); Potassium (VBG) 4.18 mmol/L (3.70-5.30); Sodium 130.7 mmol/L (133-146); pH (venous) 7.31 (7.32-7.43)
[2020-11-01 21:36] LABS: INR-International Normal Ratio 1.3; Prothrombin Time 16.3 sec (12.0-14.7)
[2020-11-01 21:37] LABS: PTT 29.2 sec (22.9-36.1)
[2020-11-01 21:45] LABS: ALT (SGPT) 296 U/L (8-55); AST (SGOT) 220 U/L (5-34); Albumin 3.1 g/dL (3.4-4.8); Alkaline Phosphatase 90 U/L (40-110); Anion Gap 16 mmol/L (10-20); BUN (Urea Nitrogen) 75 mg/dL (8.4-25.7); Bilirubin, Total 3.4 mg/dL (0.2-1.2); Calc. Creatinine Clearance 0 mL/min (70-130); Calcium 8.3 mg/dL (7.8-10.44); Carbon Dioxide 24 mmol/L (23-31); Chloride 96 mmol/L (98-107); Globulin 3.3 g/dL (2.4-3.5); Glucose 89 mg/dL (83-110); Lipase 74 U/L (8-78); Lymphocytes 2 % (21-51); MDiff Complete? YES; Monocytes 20 % (0-10); Neutrophil 78 % (42-75); Platelet Morphology Comment Appears Adequate; Potassium 4.3 mmol/L (3.5-5.1); Protein, Total 6.4 g/dL (5.8-8.1); RBC Morphology Normal; Sodium 132 mmol/L (136-145)
[2020-11-01 22:12] LABS: CKMB 10.3 ng/mL (0-6.6)
[2020-11-01] MEDS ORDERED: Vancomycin 1 GM/200 ML BAG ONE (22:37)
[2020-11-02] MEDS ORDERED: Furosemide 20 MG/2 ML VIAL ONE ×2 (00:06→11:45)
[2020-11-02] MEDS ORDERED: Aspirin 325 MG TAB ONE (00:06)
[2020-11-02 00:41] LABS: Lactic Acid 1.9 mmol/L (0.5-2.2)
[2020-11-02 00:49] LABS: Troponin I 0.207 ng/mL (< 0.028)
[2020-11-02] MEDS ORDERED: Acetaminophen 325 MG TAB PO PRN (02:15)
[2020-11-02] MEDS ORDERED: Ondansetron ODT 4 MG TAB SL PRN (02:15)
[2020-11-02] MEDS ORDERED: Ondansetron PF 4 MG/2 ML Vial IVP PRN (02:15)
[2020-11-02 04:14] LABS: CKMB 9.6 ng/mL (0-6.6)
[2020-11-02] MEDS ORDERED: Furosemide 20 MG/2 ML VIAL SLOW IVP SCH (10:30)
[2020-11-02 11:16] LABS: Alcohol Less than 10 mg/dL (Less than 10); CK (CPK) 356 U/L (30-200)
[2020-11-02 12:04] LABS: Amphetamine Not Detected (NotDetected); Benzodiazepine Screen Not Detected (NotDetected); Cocaine Metabolite Screen Not Detected (NotDetected); Medtox Reader # READER 4; Methamphetamine Not Detected (NotDetected); Opiate Screen Detected (NotDetected); Phencyclidine (PCP) Not Detected (NotDetected); THC/Cannabinoid Screen Not Detected (NotDetected); Tricyclic Screen Not Detected (NotDetected)
[2020-11-02 12:05] LABS: Barbiturates Screen Not Detected (NotDetected); Medtox Control Line Valid? VALID (VALID); Methadone Not Detected (NotDetected); Oxycodone Screen Not Detected (NotDetected)
[2020-11-02 14:28] LABS: SARS-CoV-2 PCR by NAA Not Detected (NotDetected)
[2020-11-02] MEDS: traMADol HCl 50 MG TAB PO PRN (16:05)
[2020-11-02] MEDS: Nicotine 14 MG PATCH TD SCH (16:27)
[2020-11-02 16:42] LABS: Anion Gap 16 mmol/L (10-20); BUN (Urea Nitrogen) 64 mg/dL (8.4-25.7); Calc. Creatinine Clearance 28 mL/min (70-130); Carbon Dioxide 20 mmol/L (23-31); Chloride 99 mmol/L (98-107); Glucose 104 mg/dL (83-110); Potassium 3.8 mmol/L (3.5-5.1); Sodium 131 mmol/L (136-145)
[2020-11-02] MEDS: CEFEPIME HCL IN DEXTROSE 5 % 1 GM in Premix Bag 1 BAG IVPB SCH (21:41)
[2020-11-02 22:23] LABS: Vancomycin, Random 8.5 ug/mL (See Comment)
[2020-11-02] MEDS ORDERED: Vancomycin HCl 1 GM in Premix Bag 1 BAG IVPB SCH (23:00)
[2020-11-02] MEDS ORDERED: Vancomycin HCl 750 MG in Sodium Chloride 0.9% 250 ML 250 ML IVPB SCH (23:15)
[2020-11-03] MEDS: Morphine 2 MG/ML VIAL SLOW IVP PRN ×4 (01:49→20:28)
[2020-11-03] MEDS: Albuterol Sulfate 2.5 mg/3 ml Neb NEB PRN ×5 (02:33→22:29)
[2020-11-03 04:59] LABS: Anion Gap 14 mmol/L (10-20); BUN (Urea Nitrogen) 59 mg/dL (8.4-25.7); Calc. Creatinine Clearance 33 mL/min (70-130); Calcium 7.8 mg/dL (7.8-10.44); Carbon Dioxide 24 mmol/L (23-31); Chloride 98 mmol/L (98-107); Glucose 94 mg/dL (83-110); Potassium 3.2 mmol/L (3.5-5.1); Sodium 133 mmol/L (136-145)
[2020-11-03 05:01] LABS: Hemoglobin 13.1 g/dL (14.0-18.0); Lymphocytes 3 % (21-51); MDiff Complete? YES; Mean Corpuscular HGB CONC 32.5 g/dL (32.0-36.0); Mean Corpuscular Hemoglobin 31.3 pg (27.0-31.0); Mean Corpuscular Volume 96.2 fL (78.0-98.0); Mean Platelet Volume 9.5 fL (7.4-10.4); Metamyelocyte 1 % (0-0); Monocytes 7 % (0-10); Neutrophil 89 % (42-75); Platelet Count 207 thou/uL (130-400); Platelet Morphology Comment Appears Adequate; RBC Distribution Width 15.5 % (11.5-14.5); White Blood Cell (WBC) Count 17.6 thou/uL (4.8-10.8)
[2020-11-03] MEDS ORDERED: Sodium Chloride 0.9% 10 ML ONE (09:26)
[2020-11-03] MEDS ORDERED: Potassium Chloride 20 MEQ TAB PO SCH (10:00)
[2020-11-03] MEDS: Nicotine 14 MG PATCH TD SCH (11:19)
[2020-11-03 13:31] LABS: Magnesium 2.2 mg/dL (1.6-2.6); Potassium 4.6 mmol/L (3.5-5.1)
[2020-11-03] MEDS: traMADol HCl 50 MG TAB PO PRN (15:57)
[2020-11-03] MEDS: Polyethylene Glycol 3350 17 GM Packet PO PRN (15:59)
[2020-11-03] MEDS ORDERED: Furosemide 40 MG TAB PO SCH (20:15)
[2020-11-03] MEDS: CEFEPIME HCL IN DEXTROSE 5 % 1 GM in Premix Bag 1 BAG IVPB SCH (20:28)
[2020-11-03 22:32] LABS: Vancomycin, Random 10.8 ug/mL (See Comment)
[2020-11-04] MEDS: Morphine 2 MG/ML VIAL SLOW IVP PRN ×3 (01:00→16:17)
[2020-11-04] MEDS: Albuterol Sulfate 2.5 mg/3 ml Neb NEB PRN ×6 (02:28→22:57)
[2020-11-04] MEDS ORDERED: Vancomycin HCl 750 MG in Sodium Chloride 0.9% 250 ML 250 ML IVPB SCH (03:00)
[2020-11-04] MEDS ORDERED: Furosemide 40 MG/4 ML VIAL SLOW IVP SCH ×2 (08:15→17:45)
[2020-11-04] MEDS: Furosemide 40 MG TAB PO SCH (09:05)
[2020-11-04] MEDS: Nicotine 14 MG PATCH TD SCH (11:48)
[2020-11-04 20:03] LABS: Anion Gap 19 mmol/L (10-20); BUN (Urea Nitrogen) 49 mg/dL (8.4-25.7); Calc. Creatinine Clearance 34 mL/min (70-130); Calcium 8.4 mg/dL (7.8-10.44); Carbon Dioxide 21 mmol/L (23-31); Chloride 99 mmol/L (98-107); Glucose 122 mg/dL (83-110); Potassium 3.7 mmol/L (3.5-5.1); Sodium 135 mmol/L (136-145)
[2020-11-04] MEDS: CEFEPIME HCL IN DEXTROSE 5 % 1 GM in Premix Bag 1 BAG IVPB SCH (21:16)
[2020-11-04] MEDS: traMADol HCl 50 MG TAB PO PRN (21:17)
[2020-11-05] MEDS: Albuterol Sulfate 2.5 mg/3 ml Neb NEB PRN ×5 (02:56→18:48)
[2020-11-05 05:13] LABS: Vancomycin, Trough 15.8 ug/mL
[2020-11-05] MEDS ORDERED: Vancomycin HCl 750 MG in Sodium Chloride 0.9% 250 ML 250 ML IVPB SCH (05:30)
[2020-11-05] MEDS ORDERED: Furosemide 40 MG/4 ML VIAL SLOW IVP SCH ×2 (08:00→14:30)
[2020-11-05] MEDS: Furosemide 40 MG TAB PO SCH (08:04)
[2020-11-05 08:52] LABS: Anion Gap 25 mmol/L (10-20); BUN (Urea Nitrogen) 52 mg/dL (8.4-25.7); Calc. Creatinine Clearance 29 mL/min (70-130); Calcium 8.5 mg/dL (7.8-10.44); Carbon Dioxide 17 mmol/L (23-31); Chloride 97 mmol/L (98-107); Glucose 87 mg/dL (83-110); Potassium 4.1 mmol/L (3.5-5.1); Sodium 135 mmol/L (136-145)
[2020-11-05 09:36] VITALS: BMI 18.7
[2020-11-05] MEDS: Nicotine 14 MG PATCH TD SCH (12:14)
[2020-11-05] MEDS: ALPRAZolam 0.25 MG TAB PO PRN (14:39)
[2020-11-05] MEDS: CEFEPIME HCL IN DEXTROSE 5 % 1 GM in Premix Bag 1 BAG IVPB SCH (21:02)
[2020-11-05] MEDS: traMADol HCl 50 MG TAB PO PRN (21:53)
[2020-11-06] MEDS: ALPRAZolam 0.25 MG TAB PO PRN ×2 (00:07→14:42)
[2020-11-06 05:22] LABS: Vancomycin, Trough 21.1 ug/mL
[2020-11-06 05:46] LABS: Band 8 % (5-11); Hemoglobin 13.6 g/dL (14.0-18.0); Lymphocytes 2 % (21-51); MDiff Complete? YES; Mean Corpuscular HGB CONC 31.5 g/dL (32.0-36.0); Mean Corpuscular Hemoglobin 30.6 pg (27.0-31.0); Mean Corpuscular Volume 97.2 fL (78.0-98.0); Mean Platelet Volume 9.7 fL (7.4-10.4); Monocytes 2 % (0-10); Neutrophil 88 % (42-75); Nucleated RBC 1 % (0); Platelet Count 172 thou/uL (130-400); RBC Distribution Width 16.2 % (11.5-14.5); Red Blood Cell (RBC) Count 4.43 mill/uL (4.70-6.10)
[2020-11-06] MEDS: Morphine 2 MG/ML VIAL SLOW IVP PRN ×3 (06:14→21:41)
[2020-11-06] MEDS ORDERED: Vancomycin HCl 750 MG in Sodium Chloride 0.9% 250 ML 250 ML IVPB SCH (08:00)
[2020-11-06] MEDS: Albuterol Sulfate 2.5 mg/3 ml Neb NEB PRN ×3 (08:18→21:37)
[2020-11-06] MEDS: Furosemide 40 MG TAB PO SCH (09:59)
[2020-11-06] MEDS: Nicotine 14 MG PATCH TD SCH (10:00)
[2020-11-06] MEDS ORDERED: Furosemide 40 MG/4 ML VIAL SLOW IVP SCH (10:00)
[2020-11-06] MEDS: traMADol HCl 50 MG TAB PO PRN (13:39)
[2020-11-06] MEDS: Polyethylene Glycol 3350 17 GM Packet PO PRN (13:39)
[2020-11-06 14:44] LABS: Anion Gap 21 mmol/L (10-20); BUN (Urea Nitrogen) 69 mg/dL (8.4-25.7); Calc. Creatinine Clearance 26 mL/min (70-130); Calcium 8.3 mg/dL (7.8-10.44); Carbon Dioxide 20 mmol/L (23-31); Chloride 97 mmol/L (98-107); Glucose 111 mg/dL (83-110); Magnesium 2.1 mg/dL (1.6-2.6); Potassium 3.6 mmol/L (3.5-5.1); Sodium 134 mmol/L (136-145)
[2020-11-06] MEDS ORDERED: Aspirin 325 mg Enteric Coated Tablet PO SCH (18:15)
[2020-11-06] MEDS: CEFEPIME HCL IN DEXTROSE 5 % 1 GM in Premix Bag 1 BAG IVPB SCH (21:38)
[2020-11-07] MEDS: Morphine 2 MG/ML VIAL SLOW IVP PRN ×3 (05:48→20:48)
[2020-11-07 06:02] LABS: Anion Gap 21 mmol/L (10-20); BUN (Urea Nitrogen) 77 mg/dL (8.4-25.7); Calc. Creatinine Clearance 25 mL/min (70-130); Carbon Dioxide 20 mmol/L (23-31); Chloride 98 mmol/L (98-107); Glucose 93 mg/dL (83-110); Potassium 4.2 mmol/L (3.5-5.1); Sodium 135 mmol/L (136-145)
[2020-11-07 06:11] LABS: Band 6 % (5-11); Eosinophils 1 % (0-10); Hemoglobin 13.7 g/dL (14.0-18.0); Lymphocytes 2 % (21-51); MDiff Complete? YES; Mean Corpuscular HGB CONC 31.9 g/dL (32.0-36.0); Mean Corpuscular Hemoglobin 31.1 pg (27.0-31.0); Mean Corpuscular Volume 97.5 fL (78.0-98.0); Mean Platelet Volume 10.4 fL (7.4-10.4); Monocytes 2 % (0-10); Myelocyte 1 % (0-0); Neutrophil 88 % (42-75); Platelet Count 99 thou/uL (130-400); Platelet Morphology Comment Appears Decreased; RBC Distribution Width 16.7 % (11.5-14.5); Red Blood Cell (RBC) Count 4.41 mill/uL (4.70-6.10); White Blood Cell (WBC) Count 21.3 thou/uL (4.8-10.8)
[2020-11-07] MEDS: Albuterol Sulfate 2.5 mg/3 ml Neb NEB PRN ×2 (08:40→14:22)
[2020-11-07] MEDS ORDERED: Furosemide 40 MG/4 ML VIAL SLOW IVP SCH (09:30)
[2020-11-07] MEDS: Aspirin 325 mg Enteric Coated Tablet PO SCH ×2 (09:58→10:22)
[2020-11-07] MEDS: Furosemide 40 MG TAB PO SCH ×2 (09:59→10:23)
[2020-11-07] MEDS ORDERED: Vancomycin HCl 1 GM in Premix Bag 1 BAG IVPB SCH (10:30)
[2020-11-07] MEDS: Nicotine 14 MG PATCH TD SCH (11:57)
[2020-11-07] MEDS: CEFEPIME HCL IN DEXTROSE 5 % 1 GM in Premix Bag 1 BAG IVPB SCH (20:48)
[2020-11-07] MEDS: ALPRAZolam 0.25 MG TAB PO PRN (22:20)
[2020-11-07] MEDS ORDERED: Morphine 2 MG/ML VIAL SLOW IVP SCH (22:33)
[2020-11-08] MEDS: Morphine 2 MG/ML VIAL SLOW IVP PRN ×5 (00:56→21:29)
[2020-11-08] MEDS: Aspirin 325 mg Enteric Coated Tablet PO SCH (09:44)
[2020-11-08] MEDS: Furosemide 40 MG TAB PO SCH (09:44)
[2020-11-08 10:33] LABS: Vancomycin, Random 17.6 ug/mL (See Comment)
[2020-11-08 10:36] LABS: ALT (SGPT) 160 U/L (8-55); AST (SGOT) 136 U/L (5-34); Albumin 2.4 g/dL (3.4-4.8); Alkaline Phosphatase 85 U/L (40-110); Bilirubin, Total 4.4 mg/dL (0.2-1.2); Protein, Total 5.7 g/dL (5.8-8.1)
[2020-11-08] MEDS: Nicotine 14 MG PATCH TD SCH (11:20)
[2020-11-08] MEDS ORDERED: Vancomycin HCl 750 MG in Sodium Chloride 0.9% 250 ML 250 ML IVPB SCH (13:00)
[2020-11-08] MEDS: Sodium Chloride 0.9% (5 ML) NEB NEB SCH ×2 (14:21→22:49)
[2020-11-08] MEDS: ALPRAZolam 0.25 MG TAB PO PRN (19:30)
[2020-11-08] MEDS: CEFEPIME HCL IN DEXTROSE 5 % 1 GM in Premix Bag 1 BAG IVPB SCH (21:08)
[2020-11-08] MEDS: Albuterol Sulfate 2.5 mg/3 ml Neb NEB PRN (22:49)
[2020-11-09] MEDS: Morphine 2 MG/ML VIAL SLOW IVP PRN ×3 (00:34→10:21)
[2020-11-09] MEDS: Sodium Chloride 0.9% 15 ML NEB NEB SCH ×2 (07:22→14:10)
[2020-11-09] MEDS: Aspirin 325 mg Enteric Coated Tablet PO SCH (09:35)
[2020-11-09] MEDS: Furosemide 40 MG TAB PO SCH (09:35)
[2020-11-09] MEDS: Nicotine 14 MG PATCH TD SCH (10:21)
[2020-11-09] MEDS ORDERED: Vancomycin HCl 750 MG in Sodium Chloride 0.9% 250 ML 250 ML IVPB SCH (13:00)
[2020-11-09 16:37] VITALS: BP 159/83; TEMP 97
[2020-11-10] MEDS ORDERED: Vancomycin HCl 1 GM in Premix Bag 1 BAG IVPB SCH (13:00)
== END 2020-11-09 18:00 | disposition hospice, home (50) | DRG 698 ==
LOC: ERS 20:17 → ERHOLD 11-02 00:09 → EEVIPCON 11-02 00:09 → 2NO 11-02 13:02
PROVIDERS: ADMIT Internal Medicine; ATTEND Emergency Medicine
DX: T83.511A Infection and inflammatory reaction due to indwelling urethral catheter, initial encounter (principal); A41.9 Sepsis, unspecified organism; I50.23 Acute on chronic systolic (congestive) heart failure; E43 Unspecified severe protein-calorie malnutrition; R65.20 Severe sepsis without septic shock; I13.0 Hypertensive heart and chronic kidney disease with heart failure and stage 1 through stage 4 chronic kidney disease, or unspecified chronic kidney disease; N17.9 Acute kidney failure, unspecified; J44.1 Chronic obstructive pulmonary disease with (acute) exacerbation; E87.1 Hypo-osmolality and hyponatremia; J96.11 Chronic respiratory failure with hypoxia; I47.2 Ventricular tachycardia; Z68.1 Body mass index [BMI] 19.9 or less, adult; N39.0 Urinary tract infection, site not specified; Z66 Do not resuscitate; Z51.5 Encounter for palliative care; Z20.822 Contact with and (suspected) exposure to COVID-19; E78.5 Hyperlipidemia, unspecified; F17.220 Nicotine dependence, chewing tobacco, uncomplicated; I25.5 Ischemic cardiomyopathy; I70.245 Atherosclerosis of native arteries of left leg with ulceration of other part of foot; R79.89 Other specified abnormal findings of blood chemistry; R74.01 Elevation of levels of liver transaminase levels; R41.82 Altered mental status, unspecified; F17.210 Nicotine dependence, cigarettes, uncomplicated; N18.30 Chronic kidney disease, stage 3 unspecified; F10.10 Alcohol abuse, uncomplicated; L97.529 Non-pressure chronic ulcer of other part of left foot with unspecified severity; D63.1 Anemia in chronic kidney disease; E87.6 Hypokalemia; K59.00 Constipation, unspecified; I25.2 Old myocardial infarction; Z88.0 Allergy status to penicillin; Z79.899 Other long term (current) drug therapy; Z95.1 Presence of aortocoronary bypass graft; Z95.810 Presence of automatic (implantable) cardiac defibrillator; Z91.19 Patient's noncompliance with other medical treatment and regimen; Y84.6 Urinary catheterization as the cause of abnormal reaction of the patient, or of later complication, without mention of misadventure at the time of the procedure
CPT/HCPCS: 36415; 70450; 71045; 74176; 80048; 80053; 80076; 80202; 80306; 80307; 81003; 81015; 82550; 82553; 82805; 83605; 83690; 83735; 83880; 84484; 85025; 85610; 85730; 86850; 86900; 86901; 87040; 87077; 87086; 93005; 93923; 94640; 96365; 96367; 96375; A4218; J0692; J1940; J2270; J3370; J7050; J7611; U0003; U0005